=== PATIENT | female | born 1935 | race Caucasian/White ===

== ENCOUNTER 2016-06-02 11:22 | Inpatient (IN) | payer MEDICARE, BC ==
[~2016-06-02] VITALS: Ht 160 cm; Wt 60.0 kg
--- NOTE | ~2016-06-02 | HEMODYNAMI ---
PATIENT:DENAE HALLMAN MEDICAL RECORD: [id number] : 35 [facility] [id number] ADMISSION DATE: 06/02/16 Generatedon:06/03/20169:52 Patient name: DENAE HALLMAN Patient #: [id number] : 1935 Date of study: 06/03/2016 Page: Of Hemodynamic Procedure Report Patient Data Patient Demographics Procedure consent was obtained First Name: DENAE Gender: Female Last Name: LEXX : 1935 Patient #: [id number] Age: 80 year(s) Race: SSN: [id number] Additional ID: [id number] Contact details Address: [address] [place] [address] State: [place] City: [place] Zip code: [address] Past Medical History Allergies: No known allergies Admission Admission Data Admission Date: 06/02/2016 Admission Time: 12:38 Arrival Date: 06/02/2016 Arrival Time: 12:38 Admit Source: Other Insurance Payor: Medicare Room #: D.2121 Height (in.): 62 BSA: 1.6 (m2) Height (cm.): 157.48 BMI: 24.19 (kg/m2) Weight (lbs.): 132.28 Weight (kg.): 60 Lab Results Lab Result Date: 06/03/2016 Lab Result Time: 0:00 Biochemistry Name Units Result Min Max BUN mg/dl 21 --(----)-* 7 18 Creatinine mg/dl 0.9 --(-*--)-- 0.6 1.3 CBC Name Units Result Min Max Hemoglobin g/dl 11.2 *-(----)-- 13.5 17.5 Procedure Procedure Types Cath Procedure Diagnostic Procedure [facility] w/Coronaries PCI Procedure Coronary Stent Initial Procedure Description Procedure Date Procedure Date: 06/03/2016 Procedure Start Time: 9:33 Procedure End Time: 9:47 Procedure Staff Name Function Rodrick Moran MD Performing Physician Monica Amato RT Scrub Ger Allen RT Supervisory Examiner Vania Bobby RT Monitor Dayana Knight RN Nurse Indication Angina Procedure Data Cath Procedure Fluoroscopy Diagnostic fluoroscopy Total fluoroscopy Time: 4.2 time: 4.2 min min Diagnostic fluoroscopy Total fluoroscopy dose: 519 dose: 519 mGy mGy Contrast Material Contrast Material Type Amount (ml) Isovue 370 83 Entry Location Entry Primary Successful Side Size Upsize Upsize Entry Closure Rhodes ccessful Closure Location (Fr) 1 (Fr) 2 (Fr) Remarks Device Remarks Radial Right 6 Fr Mechanical artery Short Compression Estimated blood loss: 5 ml Diagnostic catheters Device Type Used For End Catheter Placement Terumo Optitorque 5Fr Multi-vessel [place] 4.5 catheter Angiography Procedure Complications No complications Procedure Medications Medication Administration Route Dosage Oxygen NC 2 l/min Heparin Flush Bag added to field 2 bags (1000units/500ml NS) Lidocaine 2% added to field 20 Radial Cocktail added to field 1 syringe (Verapomil 2mg/Nitro 400mcg/Heparin 1500units) Versed I.V. 1 mg Fentanyl I.V. 50 mcg Versed I.V. 1 mg Fentanyl I.V. 50 mcg Radial Cocktail I.A. 1 syringe (Verapomil 2mg/Nitro 400mcg/Heparin 1500units) Heparin Bolus I.V. 4000 units Versed I.V. 0.5 mg Versed I.V. 0.5 mg Plavix P.O. 75 mg Hemodynamics Rest BSA: 1.6 (m2) HGB: 11.2 (g/dl) O2 Consumption: Estimated: 151.08 (ml/min) O2 Con sumption indexed: Estimated:94.42 (ml/min/m) Heart Rate: 82 (bpm) Pressure Samples Time Site Value (mmHg) Purpose Heart Use Rate(bpm) 9:36 LV 46/14,11 Snapshot 113 Snapshots Pre Cath Intra NCS Post Cath Vital Signs Time Heart Resp SPO2 NIBP (mmHg) Rhythm Pain Sedation Rate (ipm) (%) Status Level (bpm) 9:00:22 81 16 98 161/74(122) NSR 0 (11) 10(A) , No pain 9:04:52 82 13 99 169/72(117) NSR 0 (11) 10(A) , No pain 9:09:16 86 17 97 161/75(118) NSR 0 (11) 10(A) , No pain 9:13:41 84 15 96 143/67(108) NSR 0 (11) 10(A) , No pain 9:17:57 83 16 97 151/68(117) NSR 0 (11) 10(A) , No pain 9:22:27 80 18 96 131/70(75) NSR 0 (11) 10(A) , No pain 9:26:43 82 15 95 131/59(89) NSR 0 (11) 10(A) , No pain 9:30:59 83 16 95 130/57(92) NSR 0 (11) 10(A) , No pain 9:35:11 81 15 95 115/68(92) NSR 0 (11) 10(A) , No pain 9:39:17 88 14 95 128/67(97) NSR 0 (11) 9(A) , No pain 9:43:27 85 14 97 147/72(111) NSR 0 (11) 9(A) , No pain 9:47:31 84 14 99 142/65(106) NSR 0 (11) 10(A) , No pain Medications Time Medication Route Dose Verified Delivered Reason Notes Effectiveness by by 9:16:04 Oxygen NC 2 l/min Rodrick Dayana Per physician Luisa Knight RN 9:16:12 Heparin Flush added 2 bags Rodrick Mensah used for Bag to Luisa Moran MD procedure (1000units/500ml field NS) 9:16:22 Lidocaine 2% added 20ml Rodrick Mensah used for to vial Luisa Moran MD procedure field 9:16:33 Radial Cocktail added 1 Rodrick Rodrick used for (Verapomil to syringe Luisa Moran MD procedure 2mg/Nitro field 400mcg/Heparin 1500units) 9:33:26 Versed I.V. 1 mg Rodrick Dayana for sedation Luisa Knight RN 9:33:32 Fentanyl I.V. 50 mcg Rodrick Dayana for sedation Luisa Knight RN 9:35:20 Versed I.V. 1 mg Rodrick Dayana for sedation Luisa Knight RN 9:35:23 Fentanyl I.V. 50 mcg Rodrick Dayana for sedation Luisa Knight RN 9:35:36 Radial Cocktail I.A. 1 Rodrick Mensah for (Verapomil syringe Luisa Moran MD vasodilation 2mg/Nitro 400mcg/Heparin 1500units) 9:37:49 Versed I.V. 0.5 mg Rodrick Dayana for sedation Luisa Knight RN 9:39:32 Heparin Bolus I.V. 4000 Rodrick Dayana for dose units Luisa Knight RN anticoagulation verified wtih dr moran 9:41:35 Versed I.V. 0.5 mg Rodrick Dayana for sedation Luisa Knight RN 9:49:45 Plavix P.O. 75 mg Rodrick Dayana for Luisa Knight RN antiplatelet therapy Procedure Log Time Note 8:30:54 Ger Allen RT(R) sent for patient. Start room use. 8:46:39 Informed consent obtained and on chart 8:47:19 Admit Source: Other 8:47:27 Arrival Date: 06/02/2016 12:38:00 PM 8:47:36 Insurance Payor : Medicare 8:48:12 Lab Result : Hemoglobin 11.2 g/dl 8:48:12 Lab Result : BUN 21 mg/dl 8:48:12 Lab Result : Creatinine 0.9 mg/dl 8:48:22 Diagnostic Cath Status : Elective 8:49:31 Indication : Angina 8:50:06 Time tracking: Regular hours 8:50:12 Plan of Care:Hemodynamics will remain stable., Cardiac rhythm will remain stable., Comfort level will be maintained., Respiratory function will remain adequate., Patient/ family verbilizes understanding of procedure., Procedure tolerated without complication., Recovers from procedure without complications.. 8:51:14 Warm blankets applied, and lizeth hugger turned on for patient comfort. 8:51:14 Correct patient and procedure confirmed by team. 8:51:15 ECG and BP/O2 sat monitors applied to patient. 8:51:15 Vital chart was started 8:53:35 Patient Weight : 60 lbs 8:54:28 H&P Date Dictated: 06/02/2016 Within 30 days and on chart., H&P Addendum completed by physician on day of procedure. (MUST COMPLETE FOR ALL OUTPATIENTS). 8:54:29 Pre-procedure instructions explained to patient. 8:54:34 Family in waiting room. 8:54:36 Patient NPO since Midnight. 8:54:43 Patient allergic to No known allergies 8:54:49 Is the patient allergic to Iodine/contrast media? No. 8:56:36 Is patient on blood thinner?Yes 8:56:40 ACC The patient was administered the following blood thiners within the last 24 hours: ACCPlavix 8:56:42 Patient diabetic? No. 8:57:01 Snore? Unknown 8:57:04 Sleep apnea? No 8:57:16 Airway obstruction? Yes asthma 8:57:25 Dentures? Yes in tight 8:57:32 Patient pain scale 0/10 ?. 8:57:40 IV patent on arrival in right forearm with 0.9% NaCl at [facility]. 8:57:47 Lab results completed and on chart. 8:57:51 Right Radial & Right Groin area was prepped with chlora-prep and draped in sterile fashion 8:57:53 Alarms reviewed by R. N. 8:57:53 Sharps counted by scrub and verified by R.N. 8:58:04 Baseline sample Acquired. 8:58:15 Full Disclosure recording started 9:07:57 H&P Date Dictated: 06/03/2016 New H&P dictated by physician.. 9:13:10 Patient Height : 157.48 inches 9:16:04 Oxygen 2 l/min NC was given by Dayana Knight RN; Per physician; 9:16:12 Heparin Flush Bag (1000units/500ml NS) 2 bags added to field was given by Rodrick Moran MD; used for procedure; 9:16:22 Lidocaine 2% 20ml vial added to field was given by Rodrick Moran MD; used for procedure; 9:16:33 Radial Cocktail (Verapomil 2mg/Nitro 400mcg/Heparin 1500units) 1 syringe added to field was given by Rodrick Moran MD; used for procedure; 9:21:48 Zero performed for pressure channel P1 9:21:53 Zero performed for pressure channel P1 9:21:58 Zero performed for pressure channel P1 9:32:10 Physician arrived 9:32:11 --------ALL STOP TIME OUT------ 9:32:11 Final Timeout: patient, procedure, and site verified with staff and physician. All members of the team are in agreement. 9:32:20 Right Radial & Right Groin site verified by team. 9:32:27 Physical assessment completed. ASA score P 2 - A patient with mild systemic disease as per Rodrick Moran MD. 9:32:31 Sedation plan: IV Moderate Sedation Versed, Fentanyl 9:32:39 Use device set Radial Dx 9:32:40 Acist Syringe opened to sterile field. 9:32:41 Cardinal Cath Pack opened to sterile field. 9:32:42 Bag Decanter opened to sterile field. 9:32:42 Terumo 6Fr Slender Glidesheath opened to sterile field. 9:32:43 St Erasmo 260cm J .035 wire opened to sterile field. 9:32:43 Acist Hand Control opened to sterile field. 9:32:44 Acist Manifold opened to sterile field. 9:32:45 Tegaderm 4 x 4 opened to sterile field. 9:32:50 Procedure started. 9:33:26 Versed 1 mg I.V. was given by Dayana Knight RN; for sedation; 9:33:32 Fentanyl 50 mcg I.V. was given by Dayana Knight RN; for sedation; 9:33:55 Local anesthetic to right radial artery with Lidocaine 2% by Rodrick Moran MD.INITIAL ACCESS ONLY 9:34:05 A 6 Fr Short sheath was inserted into the Right Radial artery 9:35:20 Versed 1 mg I.V. was given by Dayana Knight RN; for sedation; 9:35:23 Fentanyl 50 mcg I.V. was given by Dayana Knight RN; for sedation; 9:35:23 A TerAppLovin Optitorque 5Fr Milford 4.5 catheter was advanced over the wire and used for Multi-vessel Angiography. 9:35:36 Radial Cocktail (Verapomil 2mg/Nitro 400mcg/Heparin 1500units) 1 syringe I.A. was given by Rodrick Moran MD; for vasodilation; 9:36:13 LV hemodynamics recorded. 9:36:14 LV gram done using DUNN 9:36:26 EF : 60 % 9:36:30 LCA angiography performed. 9:36:33 Injector settings: Ml/sec: 3, Volume: 6, 9:37:21 RCA angiography performed. 9:37:28 Injector settings: Ml/sec: 3, Volume: 6, 9:37:49 Versed 0.5 mg I.V. was given by Dayana Knight RN; for sedation; 9:37:49 Catheter removed. 9:38:09 Proceeding to intervention. 9:39:32 Heparin Bolus 4000 units I.V. was given by Dayana Knight RN; for anticoagulation; dose verified wtih dr moran 9:39:45 Cordis 6FR XBLAD 3.5 guide catheter opened to sterile field. 9:39:45 Parker Whisper J 300cm 0.014 guide wire opened to sterile field. 9:39:46 [employer] BasixCompak Inflation Kit opened to sterile field. 9:40:34 6 Fr xblad 3.5 guide catheter was inserted over the wire 9:41:35 Versed 0.5 mg I.V. was given by Dayana Knight RN; for sedation; 9:41:49 whisper wire advanced. 9:41:59 Wire advanced across lesion. 9:42:18 Inflation number: 1 A [employer] [place] 2.5 X 20 balloon was prepped and advanced across the Mid CX, then inflated to 11 YAQUELIN for 0:10 (min:sec). 9:42:43 Balloon removed over the wire. 9:44:44 Inflation Number: 2 A Medtronic Resolute 2.5 X 26 stent was prepped and advanced across the Mid CX. The stent was deployed at 9 YAQUELIN for 0:10 (min:sec). 9:45:11 Stent catheter was removed intact over wire. 9:45:38 Wire removed. 9:45:39 Guide catheter removed. 9:46:00 Terumo TR Band Standard opened to sterile field. 9:46:16 Sheath removed intact; hemostasis achieved with Mechanical Compression to the Right Radial artery. 9:46:18 Procedure ended.(Physican Out) 9:46:43 Fluoroscopy time 04.20 minutes. 9:46:48 Flurop Dose total: 519 9:46:48 Fluoroscopy dose: 519 mGy 9:47:04 Contrast amount:Isovue 370 83ml. 9:47:06 Sharps counted by scrub and verified by R.N. 9:47:12 TR band inflated with 10cc of air. 9:47:18 Post right radial artery:stable 9:47:20 Post Procedure Pulses reassessed and unchanged 9:47:22 Post procedure rhythm: unchanged. 9:47:25 Estimated blood loss: 5 ml 9:47:26 Post procedure instruction explained to patient.Patient verbalizes understanding. 9:47:27 Patient needs reinforcement of post procedure teaching. 9:47:35 Procedure type changed to Cath procedure, Diagnostic procedure, LHC, C w/Coronaries, PCI procedure, Coronary Stent Initial 9:47:37 Procedure and supply charges have been captured, reviewed, submitted and are correct. 9:47:41 Procedure Complication : No complications 9:47:44 Vital chart was stopped 9:47:44 See physician's report for complete and final results. 9:47:55 Report given to [facility]. 9:47:57 Patient transfered to [facility] with Stretcher. 9:47:59 Procedure ended. 9:47:59 Full Disclosure recording stopped 9:48:11 ACC-PCI Only Patient was given prescriptions, or instructed by Rodrick Moran MD to start/continue the following medications upon discharge: Plavix 9:48:12 End room use (Document Last) 9:49:45 Plavix 75 mg P.O. was given by Dayana Knight RN; for antiplatelet therapy; Intervention Summary Intervention Notes Time ActionType Lesion and Equipment Action# Pressure Duration Attributes Used 9:42:18 Inflate Mid CX [employer] [place] 1 11 00:10 balloon Sci [place] 2.5 X 20 balloon 9:44:44 Place stent Mid CX Medtronic 2 9 00:10 Resolute 2.5 X 26 stent Device Usage Item Name Manufacture Quantity Catalog Number Hospital Part Current [facility] Lot# / Charge Number Stock Stock Serial# Code Acist Acist 1 19060 927579 962192 955489 20 Syringe Medical [employer] Inc Cardinal Cardinal 1 [id number] 61394 899419 5 Cath Pack Health Bag Microtek 1 2001S 637124 17070 373925 5 Decmig33 Medical Inc. Terumo 6Fr Terumo 1 [id number] 544112 544227 315391 [address] Erasmo St Erasmo 1 294828 908309 826651 960394 30 260cm J .035 wire Acist Hand Acist 1 06903 595548 392692 596576 5 Control Medical Systems Inc Acist Acist 1 23311 030312 256785 887621 5 Manifold Medical Systems Inc Tegaderm 4 3M 1 [id number] 577683 242946 636742 5 x 4 Terumo Terumo 1 40-1232 677492 078246 750553 5 Optitorque 5Fr Mil[place] 4.5 catheter Cordis 6FR Cardinal 1 [id number] 589506 768759 579933 10 XBLAD 3.5 Health guide catheter Parker Parker 1 [id number] 510078 643134 238645 5 Whisper J Vascular 300cm 0.014 guide wire Merit Merit 1 [id number] 057343 740933 338192 15 BasixLocally Medical Inflation Kit [place] Sci [place] 1 [id number] 150274 762848 275310 1 [id number] [employer] 2.5 X 20 balloon Medtronic Medtronic 1 [id number] 022531 433490 3 [id number] Resolute 2.5 X 26 stent Terumo TR Terumo 1 [id number] 233669 347426 711758 40 Band Standard Signature Audit Todd Stage Time Signature Unsigned Intra-Procedure 06/03/2016 Vania Bobby 9:52:32 AM RT(R) Signatures Monitor : Vania Bobby RT Signature : Date : Time : [place] [id number] [place] [place] [address]
--- NOTE | ~2016-06-02 | HEMODYNAMI ---
PATIENT:DENAE HALLMAN MEDICAL RECORD: [id number] : 35 [id number] ADMISSION DATE: 06/03/16 Generatedon:06/04/201610:17 Patient name: DENAE HALLMAN Patient #: [id number] : 1935 Date of study: 06/04/2016 Page: Of Hemodynamic Procedure Report Patient Data Patient Demographics Procedure consent was obtained First Name: DENAE Gender: Female Last Name: LEXX : 1935 Patient #: [id number] Age: 80 year(s) Race: SSN: [id number] Additional ID: [id number] Contact details [address]: [address] [place] [address] State: [place] City: [place] Zip code: [address] Past Medical History Allergies: No known allergies Admission Admission Data Admission Date: 06/03/2016 Admission Time: 15:10 Arrival Date: 06/02/2016 Arrival Time: 12:38 Admit Source: Other Insurance Payor: Medicare Room #: D.2121 Height (in.): 62 BSA: 1.6 (m2) Height (cm.): 157.48 BMI: 24.19 (kg/m2) Weight (lbs.): 132.28 Weight (kg.): 60 Lab Results Lab Result Date: 06/03/2016 Lab Result Time: 0:00 Biochemistry Name Units Result Min Max BUN mg/dl 21 --(----)-* 7 18 Creatinine mg/dl 0.9 --(-*--)-- 0.6 1.3 CBC Name Units Result Min Max Hemoglobin g/dl 11.2 *-(----)-- 13.5 17.5 Procedure Procedure Types Cath Procedure PCI Procedure Coronary Stent Initial Procedure Description Procedure Date Procedure Date: 06/04/2016 Procedure Start Time: 10:07 Procedure End Time: 10:15 Procedure Staff Name Function Rodrick Moran MD Performing Physician Dominic Larose RT Scrub Abram Scott RN Nurse Ger Allen RT [employer] [employer] [facility] And Edger Yung Sung RT Monitor Procedure Data Cath Procedure Fluoroscopy Diagnostic fluoroscopy Total fluoroscopy Time: 2.9 time: 2.9 min min Diagnostic fluoroscopy Total fluoroscopy dose: 133 dose: 133 mGy mGy Contrast Material Contrast Material Type Amount (ml) Isovue 300 99 Entry Location Entry Primary Successful Side Size Upsize Upsize Entry Closure Succes sful Closure Location (Fr) 1 (Fr) 2 (Fr) Remarks Device Remarks Femoral Right 6 Fr Vascade artery Short Closure System Procedure Complications No complications Procedure Medications Medication Administration Route Dosage Oxygen NC 2 l/min Lidocaine 2% added to field 20 Heparin Flush Bag added to field 2 bags (1000units/500ml NS) 0.9% NaCl I.V. 100 ml/hr Versed I.V. 1 mg Fentanyl I.V. 50 mcg Heparin Bolus I.V. 4000 units Hemodynamics Rest BSA: 1.6 (m2) HGB: 11.2 (g/dl) O2 Consumption: Estimated: 144.53 (ml/min) O2 Con sumption indexed: Estimated:90.33 (ml/min/m) Heart Rate: 71 (bpm) Snapshots Pre Cath Intra NCS Post Cath Vital Signs Time Heart Resp SPO2 etCO2 MF5ucdz NIBP (mmHg) Rhythm Pain Sedation Rate (ipm) (%) (mmHg) (mmHg) Status Level (bpm) 9:58:17 69 15 96 0 0 146/74(130) NSR 0 (11) 10(A) , No pain 10:02:35 68 15 97 0 0 155/80(130) NSR 0 (11) 10(A) , No pain 10:06:57 67 14 98 0 0 164/80(119) NSR 0 (11) 9(A) , No pain 10:11:24 69 14 98 0 0 143/68(111) NSR 0 (11) 9(A) , No pain 10:15:44 69 17 99 0 0 166/71(121) NSR 0 (11) 10(A) , No pain Medications Time Medication Route Dose Verified Delivered Reason Notes Effectiveness by by 10:00:32 Oxygen NC 2 Rodrick Valverde used for l/min Luisa Scott customer sales advisor 10:01:09 Lidocaine 2% added 20ml Rodrick Mensah for local to vial Luisa Moran MD anesthetic field 10:01:18 Heparin Flush added 2 Rodrick Mensah used for Bag to bags Luisa Moran MD procedure (1000units/500ml field NS) 10:01:27 0.9% NaCl I.V. 100 Rodrick Valverde Per physician ml/hr Luisa Scott RN 10:03:32 Versed I.V. 1 mg Rodrick Valverde for sedation Luisa Scott RN 10:03:38 Fentanyl I.V. 50 Rodrick Valverde for sedation mcg Luisa Scott RN 10:06:16 Heparin Bolus I.V. 4000 Rodrick Guerraie for verifi ed units Luisa Scott RN anticoagulation with dr moran Procedure Log Time Note 9:44:44 Patient Height : 62 inches 9:44:44 Patient Weight : 132.28 lbs 9:45:20 ACC Patient presents with Unstable Angina CCS Anginal Class 3--Marked limitation of physical activity, angina occurs with ordinary activity.. 9:45:22 Diagnostic Cath status Urgent 9:45:36 Ger [facility]NG(R) sent for patient. Start room use. 9:45:38 Time tracking: Regular hours 9:45:52 Plan of Care:Hemodynamics will remain stable., Cardiac rhythm will remain stable., Comfort level will be maintained., Respiratory function will remain adequate., Patient/ family verbilizes understanding of procedure., Procedure tolerated without complication., Recovers from procedure without complications.. 9:46:00 Patient received from PCU to CCL 1 Alert and oriented. Tansferred to table in Supine position. 9:46:01 Warm blankets applied, and lizeth hugger turned on for patient comfort. 9:46:01 Correct patient and procedure confirmed by team. 9:46:03 Signed procedure consent form obtained from patient. 9:46:04 ECG and BP/O2 sat monitors applied to patient. 9:57:13 Vital chart was started 9:57:14 Baseline sample Acquired. 9:57:17 Rhythm: sinus rhythm 9:57:17 Full Disclosure recording started 9:57:38 H&P Date Dictated: 06/02/2016 Within 30 days and on chart.. 9:57:40 Pre-procedure instructions explained to patient. 9:57:40 Pre-op teaching completed and patient verbalized understanding. 9:58:28 Family in waiting room. 9:58:35 Patient NPO since Midnight. 9:58:44 Patient allergic to No known allergies 9:58:46 Is the patient allergic to Iodine/contrast media? No. 9:58:49 Is patient on blood thinner?Yes 9:58:51 ACC The patient was administered the following blood thiners within the last 24 hours: ACCPlavix 9:59:36 Patient diabetic? No. 9:59:38 ----Pre-sedation anethsthesia assessment.---- 9:59:40 Previous problem with sedation/anesthesia? No ? 9:59:42 Snore? Unknown 9:59:44 Sleep apnea? No 9:59:46 Deviated septum? No 9:59:47 Opens mouth fully? Yes 9:59:49 Sticks out tongue? Yes 9:59:56 Airway obstruction? Yes ASTHMA 10:00:01 Dentures? Yes IN TIGHT 10:00:05 Pre procedure: right dorsailis pedis pulse 1+ Palpable, but thready & weak; easily obliterated 10:00:09 Patient pain scale 0/10 ?. 10:00:14 IV patent on arrival in left antecubital with 0.9% NaCl at 10ml/hr. 10:00:32 Oxygen 2 l/min NC was given by Abram Scott RN; used for procedure; 10:01:08 Lab results completed and on chart. 10:01:09 Lidocaine 2% 20ml vial added to field was given by Rodrick Moran MD; for local anesthetic; 10:01:11 Right groin area was prepped with chlora-prep and draped in sterile fashion 10:01:12 Alarms reviewed by R. N. 10:01:13 Sharps counted by scrub and verified by R.N. 10:01:15 --------ALL STOP TIME OUT------ 10:01:16 Final Timeout: patient, procedure, and site verified with staff and physician. All members of the team are in agreement. 10:01:17 Right groin site verified by team. 10:01:18 Heparin Flush Bag (1000units/500ml NS) 2 bags added to field was given by Rodrick Moran MD; used for procedure; 10:01:20 Physical assessment completed. ASA score P 2 - A patient with mild systemic disease as per Rodrick Moran MD. 10:01:25 Sedation plan: IV Moderate Sedation Versed, Fentanyl 10::27 0.9% NaCl 100 ml/hr I.V. was given by Abram Scott RN; Per physician; 10:03:32 Versed 1 mg I.V. was given by Abram Scott RN; for sedation; 10:03:38 Fentanyl 50 mcg I.V. was given by Abram Scott RN; for sedation; 10:05:38 Use device set Femoral PCI 10:05:39 Acist Syringe opened to sterile field. 10:05:40 Acist Hand Control opened to sterile field. 10:05:40 Bag Decanter opened to sterile field. 10:05:40 Cardinal Cath Pack opened to sterile field. 10:05:41 Terumo 6Fr Adams Sheath opened to sterile field. 10:05:41 St Erasmo 260cm J .035 wire opened to sterile field. 10:05:42 OpGen BasixCompak Inflation Kit opened to sterile field. 10:05:43 Acist Manifold opened to sterile field. 10:05:54 Parker Whisper J 300cm 0.014 guide wire opened to sterile field. 10:05:55 Cordis 6FR XBLAD 4.0 guide catheter opened to sterile field. 10:05:59 Procedure started. 10:06:16 Heparin Bolus 4000 units I.V. was given by Abram Scott RN; for anticoagulation; verified with dr moran 10:07:16 Local anesthetic to right femoral artery with Lidocaine 2% by Rodrick Moran MD.INITIAL ACCESS ONLY 10:07:25 A 6 Fr Short sheath was inserted into the Right Femoral artery 10:08:27 ACC Pre-intervention ANGELA Flow is 3. 10:08:36 6 Fr XBLAD 3.5 guide catheter was inserted over the wire 10:08:40 WHISPER wire advanced. 10:09:14 Inflation number: 1 A [place] Sci Callahan 3.0 X 9 balloon was prepped and advanced across the Prox LAD, then inflated to 9 YAQUELIN for 0:10 (min:sec). 10::27 Inflation number: 2 The [place] Sci Callahan 3.0 X 9 balloon was reinflated across the Prox LAD, to 7 YAQUELIN for 0:11 (min:sec). 10:09:41 Balloon removed over the wire. 10:11:43 Vascade 6/7 Fr Closure Device opened to sterile field. 10:11:56 Inflation Number: 3 A Promus Premier OTW 3.0 x 12 stent was prepped and advanced across the Prox LAD. The stent was deployed at 17 YAQUELIN for 0:13 (min:sec). 10:11:59 Stent catheter was removed intact over wire. 10:12:00 Wire removed. 10:12:00 Guide catheter removed. 10:12:09 Sheath removed intact; hemostasis achieved with Vascade Closure System to the Right Femoral artery. 10:12:11 Procedure ended.(Physican Out) 10:13:19 Fluoroscopy time 02.90 minutes. 10:13:24 Fluoroscopy dose: 133 mGy 10:13:24 Flurop Dose total: 133 10:13:36 Contrast amount:Isovue 300 99ml. 10:13:37 Sharps counted by scrub and verified by R.N. 10:13:45 Insertion/operative site no bleeding no hematoma. 10:13:48 Post-op/insertion site Right Femoral artery dressed using a 4 x 4 and Tegaderm. 10:13:54 Post right femoral artery:stable 10:13:55 Post Procedure Pulses reassessed and unchanged 10:14:06 Post procedure: right dorsailis pedis pulse 1+ Palpable, but thready & weak; easily obliterated. 10:14:29 Post procedure rhythm: sinus rhythm 10:14:30 Post procedure instruction explained to patient.Patient verbalizes understanding. 10:14:52 Patient needs reinforcement of post procedure teaching. 10:14:55 Procedure and supply charges have been captured, reviewed, submitted and are correct. 10:14:59 Procedure Complication : No complications 10:15:02 Vital chart was stopped 10:15:03 See physician's report for complete and final results. 10:15:04 Report given to PCU. 10:15:07 Patient transfered to PCU with Bed. 10:15:09 Procedure ended. 10:15:09 Full Disclosure recording stopped 10:15:13 End room use (Document Last) Intervention Summary Intervention Notes Time ActionType Lesion and Equipment Action# Pressure Duration Attributes Used 10:09:14 Inflate Prox LAD [place] 1 9 00:10 balloon Sci Callahan 3.0 X 9 balloon 10:09:27 Reinflate Prox LAD [place] 2 7 00:11 balloon Sci Callahan 3.0 X 9 balloon 10:11:56 Place stent Prox LAD Promus 3 17 00:13 Premier OTW 3.0 x 12 stent Device Usage Item Name Manufacture Quantity Catalog Number Hospital Part Current Mini mal Lot# / Charge Number Stock Stock Serial# Code Acist Acist 1 40179 [id number] 340718 [id number] 20 Syringe Medical Systems Inc Acist Hand Acist 1 39722 701345 624270 800964 5 Control Medical Systems Inc Bag Microtek 1 2002S 969918 86826 900785 5 Decanter Medical Inc. Cardinal Cardinal 1 [id number] 054189 36019 079745 5 Cath Pack Health Terumo 6Fr Terumo 1 [id number] 159527 836988 321927 [address] Erasmo St Erasmo 1 221894 094339 300648 418371 30 260cm J .035 wire Merit Merit 1 [id number] 342422 822358 167817 15 BasixCompak Medical Inflation Kit Acist Acist 1 90271 852465 655874 127267 5 Manifold Medical Systems Inc Parker Parker 1 [id number] 895364 613019 178168 5 Whisper J Vascular 300cm 0.014 guide wire Cordis 6FR Cardinal 1 [id number] 367808 721432 998521 3 XBLAD 4.0 Health guide catheter [place] Sci [place] 1 [id number] 974107 506322 970864 1 [id number] Callahan Scientific 3.0 X 9 balloon Vascade 6/7 Cardiva 1 [id number] 658012 289901 030508 5 Fr Closure Medical, Device Inc. Promus [place] 1 [id number] 589936 163041 5 [id number] Premier OTW Scientific 3.0 x 12 stent Signature Audit Aurora Stage Time Signature Unsigned Intra-Procedure 06/04/2016 Yung Sung 10:17:31 AM RT(R) Signatures Monitor : Yung Sung RT Signature : Date : Time : [facility] [address] [place] [address]
[2016-06-02 10:59] LABS: BASOPHILS 0.3 % (0.0-2.0); EOSINOPHILS 1.4 % (0-7); HEMATOCRIT 34.4 % (36.0-48.0); HEMOGLOBIN 11.2 g/dL (12-16); LYMPHOCYTES 30.8 % (15-50); MCH 31.1 pg (26.0-34.0); MCHC 32.6 g/dL (31.0-37.0); MCV 95.6 fL (80.0-100.0); MEAN PLATELET VOLUME 9.6 fL (7.4-10.4); MONOCYTES 6.4 % (2-11); NEUTROPHILS 61.1 % (40-80); PLATELET COUNT 242 10x3/uL (130-400); RDW 15.9 % (11.5-14.5); WBC 6.3 10x3/uL (4.8-10.8)
[2016-06-02 11:31] LABS: ALBUMIN 3.2 g/dL (3.4-5.0); ALKALINE PHOSPHATASE 63 U/L (46-116); ALT (SGPT) 15 U/L (10-68); BILIRUBIN - TOTAL 0.22 mg/dL (0.2-1.3); CALC OSMOLALITY 282 mosm/kg (275-300); CALCIUM 8.9 mg/dL (8.5-10.1); CARBON DIOXIDE 26.4 mmol/L (21.0-32.0); CHLORIDE - SERUM 104 mmol/L (98-107); CREATININE - SERUM 0.8 mg/dL (0.6-1.3); GLUCOSE 104 mg/dL (74-106); POTASSIUM - SERUM 3.9 mmol/L (3.5-5.1); PROTEIN - SERUM 6.8 g/dL (6.4-8.2); SODIUM 140 mmol/L (136-145); UREA NITROGEN 24 mg/dL (7-18); eGFR NON AFRICAN AMERICAN 73 mL/min (90-120)
[2016-06-02 11:42] LABS: CHOL - HDL RATIO 2.7 ratio (2.3-4.1); CHOLESTEROL, TOTAL 216 mg/dL (0-200); CKMB 1.1 U/L (0.0-3.6); CREATINE KINASE 42 UL (21-215); HDL CHOLESTEROL 81 mg/dL (32-96); LDL CHOLESTEROL 102 mg/dL (0-100); LDL-HDL RATIO 1.3 ratio (1.5-3.5); TRIGLYCERIDE 165 mg/dL (30-200); TROPONIN-I < 0.017 ng/mL (0.000-0.060)
--- NOTE | 2016-06-02 13:30 | NUR ---
RECEIVED PT FROM ER VIA W/C IN STABLE CONDITION AAOX4 RESP UNLABORED ADMITTED TO DR OSBORNE DX CHEST PAIN PT DENIES ANY DISCOMFORT AT THIS TIME
[2016-06-02 13:31] VITALS: BP 190/75; Ht 160 cm; Wt 60.0 kg
[2016-06-02] MEDS ORDERED: GABAPENTIN100 MG PO (14:03)
[2016-06-02] MEDS ORDERED: NEXIUM40 MG (14:04)
[2016-06-02] MEDS ORDERED: ROPINIROLE HCL2 MG PO (14:04)
[2016-06-02] MEDS ORDERED: PLAQUENIL200 MG PO (14:05)
[2016-06-02] MEDS ORDERED: PREMARIN0.625 MG PO (14:05)
[2016-06-02] MEDS ORDERED: AMBIEN10 MG (14:06)
[2016-06-02] MEDS ORDERED: WELLBUTRIN SR150 MG PO (14:08)
[2016-06-02] MEDS ORDERED: PROAIR HFA8.5 GM INH (14:09)
[2016-06-02 16:00] VITALS: BP 143/72
--- NOTE | 2016-06-02 19:43 | NUR ---
RESUMED CARE OF PT, LYING IN BED RESPIRATIONS EVEN AND UNLABORED ON 2LPM VIA NC. 65 SR ON TELEMETRY. RIGHT AC SALINE LOCKED. DR. OSBORNE PAGED FOR PAIN MEDICATION. SEE NEW ORDERS. CALL LIGHT IN REACH. SEE NURSE ASSESSMENT. WILL CONTINUE TO MONITOR.
[2016-06-02 20:00] VITALS: BP 131/60
[2016-06-03] VITALS (13 sets, daily range): BP systolic 112–156; BP diastolic 53–78
[2016-06-03 05:53] LABS: ANION GAP 10.4 mmol/L (8-16); CALCIUM 8.7 mg/dL (8.5-10.1); CARBON DIOXIDE 29.3 mmol/L (21.0-32.0); CREATININE - SERUM 0.9 mg/dL (0.6-1.3); POTASSIUM - SERUM 3.7 mmol/L (3.5-5.1)
--- NOTE | 2016-06-03 07:30 | NUR ---
RECEIVED PT IN BED EYES CLOSED RESP UNLABORED NAD NOTED
--- NOTE | 2016-06-03 08:40 | NUR ---
PREOP MEDS GIVEN PT TO INFORMATION ASSISTANT VIA BED IN STABLE CONDITION
--- NOTE | 2016-06-03 09:50 | NUR ---
RETURNED FROM MANAGER LINE IN STABLE CONDITION VSS TR BAND INTACT TO RT WRIST SLIGHT BRUISING NOTED TO FOREARM AND SL EDEMA NOTED TO RT HAND WILL CONTINUE TO MONITOR
[2016-06-03 10:02] LABS: BASOPHILS 0.3 % (0.0-2.0); EOSINOPHILS 3.3 % (0-7); HEMATOCRIT 33.1 % (36.0-48.0); HEMOGLOBIN 10.7 g/dL (12-16); IMMATURE GRANULOCYTES 0.3 % (0-5); LYMPHOCYTES 18.7 % (15-50); MCH 31.1 pg (26.0-34.0); MCHC 32.3 g/dL (31.0-37.0); MCV 96.2 fL (80.0-100.0); MONOCYTES 7.4 % (2-11); PLATELET COUNT 216 10x3/uL (130-400); RBC 3.44 10x6/uL (4.00-5.40); RDW 16.2 % (11.5-14.5)
[2016-06-03 10:19] LABS: WBC 3.6 10x3/uL (4.8-10.8)
--- NOTE | 2016-06-03 10:57 | NUR ---
RATIONALE FOR SCD'S EXPLAINED. REFUSED SCD'S DUE TO PROCEDURE
[2016-06-03] MEDS ORDERED: NEXIUM40 MG PO (11:07)
[2016-06-03] MEDS ORDERED: AMBIEN10 MG PO (11:08)
--- NOTE | 2016-06-03 14:16 | OP ---
PATIENT NAME: DENAE HALLMAN MEDICAL RECORD: [id number] :35 LOCATION:D.M2 D.2121 ADMISSION DATE:06/02/16 SURGEON: AMY OSBORNE MD DATE OF OPERATION: 06/03/2016 PROCEDURES: 1. PTCA stent, left circumflex. 2. Left heart catheterization. 3. Selective coronary angiography. 4. Left ventriculogram. INDICATION: Unstable angina and coronary artery disease. PROCEDURE IN DETAIL: After informed consent was obtained and after detailed explanation of risks, benefits as well as alternative therapies, the patient elected to proceed with angiogram and angioplasty. The right radial area was prepped and draped in normal sterile fashion. The right radial artery was cannulated via modified Seldinger technique with placement of 6-Yakut sheath. All catheters exchanged through this sheath. FINDINGS: Left ventriculogram was performed in the standard 30-degree DUNN view reveals good cardiac wall motion, ejection fraction is 60%. SELECTIVE CORONARY ANGIOGRAPHY: 1. Left main is with no significant angiographic disease. 2. Left anterior descending has a 90% stenosis at the ostium. 3. The left circumflex has two 95% stenosis in the mid vessel. 4. The right coronary has at least 70% in-stent restenosis in the mid vessel. PERCUTANEOUS TRANSLUMINAL CORONARY ANGIOPLASTY STENT OF THE LEFT CIRCUMFLEX: The stent used a 2.5 x 26 mm Resolute. Result was 0% residual stenosis. OVERALL IMPRESSION: Successful percutaneous transluminal coronary angioplasty stent of the left circumflex going from 95% initial stenosis to 0% residual. PLAN: Percutaneous transluminal coronary angioplasty stent of the left anterior descending in the a.m. and the right coronary artery next week in a staged fashion. TRANSINT:[id number] Voice Confirmation ID: [id number] DOCUMENT ID: [id number] AMY OSBORNE MD at 1416 CC: [id number] DICTATION DATE: 06/03/16 0951 SECTION GANG WORKER: 06/03/16 1111 [place] [address]
--- NOTE | 2016-06-03 14:16 | HP ---
PATIENT: DENAE HALLMAN MEDICAL RECORD: [id number] ACCOUNT: [id number] LOCATION:[address] : [birth year] ADMISSION DATE: 06/02/16 HISTORY AND PHYSICAL EXAMINATION ADMITTING DIAGNOSES: 1. Angina, unstable. 2. Coronary artery disease. 3. Previous cardiac stent. 4. Lupus. HISTORY OF PRESENT ILLNESS: Mrs. Hallman presents with 1-day of chest pain and chest discomfort compatible with angina with severe left arm pain. This is just like the pain she had 5 years ago, when she had to have PTCA, stent. Her EKG is with nonspecific ST-T abnormalities. She continues to have the pain despite morphine and nitro. PHYSICAL EXAMINATION: GENERAL APPEARANCE: Well-nourished, well-developed, appears stated age. Level of distress, comfortable. PSYCHIATRIC: Mental status, alert, normal affect. Orientation, oriented to time, place and person. EYES: Lids and conjunctiva, noninjected. No discharge, no pallor. ENT: Lips, teeth, gums, normal dentition. Oropharynx, no cyanosis, no pallor. NECK: Carotid arteries, bilateral normal upstroke, no bruits, no thrills. JUGULAR VEINS: No jugular venous pressure or distention. CERVICAL LYMPH NODES: Nontender, nonenlarged. THYROID: Not enlarged. Nontender. No nodules. LUNGS: Respiratory effort, unlabored. CHEST: Normal curvature. No thoracic deformity. No chest wall tenderness. Percussion, resonant. Auscultation, clear. No wheezes, no rales, no rhonchi. CARDIOVASCULAR: Precordial exam, nondisplaced. No heaves or pericardial thrills. Rate and rhythm, regular. Heart sounds, normal S1, normal S2. No S3, no gallop, no rub. Systolic murmur, not heard. Diastolic murmur, not heard. EXTREMITIES: No cyanosis, no edema. Peripheral pulses, full and equal in all extremities, except as noted. No bruits appreciated. ABDOMEN: Soft, nondistended. Normal aorta. No bruit. Nontender. No masses. Liver, nontender, no hepatomegaly. Spleen, nontender, no splenomegaly. MUSCULOSKELETAL: No joint tenderness. No joint swelling. No erythema. NEUROLOGICAL: Normal gait, normal strength, normal tone. SKIN: Warm and dry. REVIEW OF SYSTEMS: The patient reports easy bruising but reports no swollen glands. The patient reports no fever, no night sweats, no significant weight gain, no significant weight loss. No significant exercise tolerance. The patient reports no dry eyes, no irritation, no vision change. Patient reports no difficulty hearing and no ear pain. Patient reports no frequent nose bleeds or nose and sinus problems. Patient reports on arm pain on exertion. No shortness of breath while lying down. No history of heart murmur. Patient reports no cough, no wheezing or coughing up blood. Patient reports no abdominal pain, no vomiting. Normal appetite. No diarrhea and not vomiting blood. No nausea and no constipation. Patient reports no incontinence. No difficulty urinating. No hematuria. No increased frequency. Patient reports no muscle aches. No weakness, no arthralgias, no back pain. No swelling of the extremities. Patient reports no abnormal mole, no jaundice, no rashes. Reports HISTORY AND PHYSICAL [id number] DENAE HALLMAN no loss of consciousness. No weakness and no numbness. No seizures, dizziness, or headaches. The patient reports no depression, no sleep disturbance, feeling safe in a relationship and no alcohol abuse. Patient reports on fatigue. Reports no runny nose or sinus pressure. No itching, no hives, and no frequent sneezing. OVERALL IMPRESSION: Angina in an unstable progressive fashion. We will admit, load with Plavix, and proceed with coronary angiography in the a.m. Further care depends upon findings of the angiography. TRANSINT:[id number] Voice Confirmation ID: [id number] DOCUMENT ID: [id number] AMY OSBORNE MD at 1416 CC: [id number] DICTATION DATE: 06/02/16 1123 MANAGER TARGET: 06/02/16 1154 ADM IN [place] [id number] [place] [address]
[2016-06-04] VITALS: BP 129/51
--- NOTE | 2016-06-04 00:06 | NUR ---
PT ASSESSMENT COMPLETED NO DISTRESS OBSERVED CALL LIGHTI NR EACH SRX2 BED LOW AND LOCKED WILL MONITOR
[2016-06-04 08:00] VITALS: BP 128/60
--- NOTE | 2016-06-04 09:20 | NUR ---
TELEMETRY SR. IV RESTARTED TO LEFT FA WITH 22 GAUGE CATH X 1 STICK AND FLUSHED WITH NS. PRE-OPS GIVEN. WILL CONT. PLAN OF CARE.
--- NOTE | 2016-06-04 10:04 | NUR ---
LEAVING FOR FISH TECHNOLOGIST BY BED.
--- NOTE | 2016-06-04 10:39 | NUR ---
BACK FROM COMMODITY BUYER. VS WNL. RIGHT GROIN STABLE WITHOUT BLEEDING OR HEMATOMA NOTED. WILL MONITOR.
[2016-06-04] MEDS ORDERED: PLAVIX75 MG PO (11:00)
[2016-06-04] MEDS ORDERED: ASPIRIN81 MG PO (11:00)
--- NOTE | 2016-06-04 11:40 | NUR ---
Patient Name: DENAE HALLMAN Admission Status: ER Accout number: [id number] Admission Date: 06-03-2016 : 1935 Admission Diagnosis: Attending: TROY Current LOS: 1 Anticipated DC Date: 06-04-2016 Planned Disposition: Home Primary Insurance: MEDICARE A & B Discharge Planning Comments: * Is the patient Alert and Oriented? Yes 0 * How many steps to enter\exit or inside your home? 3 0 * PCP DR. NICHOLAS HAMMOND 0 * Pharmacy [id number] IN [place] OR [facility] MAIL ORDER 0 * Preadmission Environment Home with Family 0 * ADLs Partial Dependent 0 * Partial ADLs (Assistance needed) Medication Management 0 * Equipment None 0 * Other Equipment [facility] MEDICAL EQUIPMENT PROVIDER PREFERENCE 0 * List name and contact numbers for known caregivers / representatives who currently or will assist patient after discharge: HAILY BARROSO, DTR/YULY, 0 * Community resources currently utilized None 0 * Please name any agencies selected above. NONE 0 * Additional services required to return to the preadmission environment? No 0 * Can the patient safely return to the preadmission environment? Yes 0 * Has this patient been hospitalized within the prior 30 days at any hospital? No 0 CM MET WITH PT AND DAUGHTER IN ROOM TO DISCUSS DISCHARGE PLANNING AND NEEDS. DAUGHTER, HAILY, REPORTS SHE GAVE POA PAPERS TO THE NURSE TO PLACE ON CHART. PT REPORTS LIVING AT HOME INDEPENDENTLY WITH HER ADULT DAUGHTER. PT HAS NO MEDICAL EQUIPMENT AND WOULD LIKE ANY EQUIPMENT TO BE OBTAINED FROM [facility] IF NEEDED. PT HAS NO OUTSIDE SERVICES ASSISTING IN THE HOME. CM DISCUSSED AVAILABILITY OF HOME HEALTH, REHAB SERVICES AND MEDICAL EQUIPMENT. PT DENIES DISCHARGE NEEDS, REPORTS HER DAUGHTER WILL PICK HER UP FOR DISCHARGE HOME. IMPORTANT MESSAGE FROM MEDICARE PROVIDED AND EXPLAINED. FAMILY IS UNSURE IF PT WILL BE WELL ENOUGH TO DISCHARGE TODAY AND THEY ARE WAITING TO SPEAK TO DR. OSBORNE. PT PLANS TO DISCHARGE HOME WITH ASSISTANCE OF FAMILY. CM TO FOLLOW AND ASSIST IF NEEDED. Turner In: Leandro March
[2016-06-04 12:00] VITALS: BP 165/65
--- NOTE | 2016-06-04 14:45 | NUR ---
BED REST UP. GROIN STABLE.
--- NOTE | 2016-06-04 15:01 | NUR ---
IV AND TELEMETRY DCD. DC PLANS GIVEN. UNDERSTANDING VOICED. ESCORTED TO CAR BY W/C.
--- NOTE | 2016-06-07 11:12 | OP ---
PATIENT NAME: DENAE HALLMAN MEDICAL RECORD: [id number] :35 LOCATION:D.M2 D.2121 ADMISSION DATE:06/03/16 SURGEON: AMY OSBORNE MD DATE OF OPERATION: 06/04/2016 PROCEDURES: 1. PTCA, stent LAD. 2. Selective coronary angiography. INDICATION: Angina and coronary artery disease. PROCEDURE IN DETAIL: After informed consent was obtained and after detailed explanation of risks, benefits, as well as alternative therapies, the patient elected to proceed with angiogram and angioplasty. The right femoral area was prepped and draped in normal sterile fashion. Right femoral artery was cannulated via modified Seldinger technique with placement of 6-Greenlandic sheath. All catheters exchanged through this sheath. FINDINGS: The left anterior descending has a 95% stenosis at the ostium. This was addressed with a 3.0 x 12 mm Promus stent. Result was 0% residual stenosis. OVERALL IMPRESSION: Successful percutaneous transluminal coronary angioplasty stent of the left anterior descending going from 95% initial stenosis to 0% residual. TRANSINT:[id number] Voice Confirmation ID: [id number] DOCUMENT ID: [id number] AMY OSBORNE MD at 1112 CC: [id number] DICTATION DATE: 06/04/16 1018 TECHNICAL SPEC: 06/04/16 1035 DIS IN 06/04/[address] [address]
--- NOTE | 2016-06-07 11:12 | DS ---
PATIENT:DENAE HALLMAN :35 MEDICAL RECORD: [id number] DISCHARGE SUMMARY ADMISSION DATE: 06/03/16 DISCHARGE DATE: 06/04/16 DISCHARGE DIAGNOSES: 1. Unstable angina. 2. Coronary artery disease. 3. Percutaneous transluminal coronary angioplasty stent left anterior descending and left circumflex this admission. 4. Hypertension. 5. Hyperlipidemia. HOSPITAL COURSE: Mrs. Hallman presents with anginal symptomatology. She underwent successful PTCA stent of the left circumflex and LAD. She was discharged home with the addition of aspirin and Plavix to her medical regimen. She will follow up next week for PTCA stent of the right coronary artery. TRANSINT:[id number] Voice Confirmation ID: [id number] DOCUMENT ID: [id number] AMY OSBORNE MD at 1112 CC: [id number] DICTATION DATE: 06/04/16 1017 TALENT DEVELOPMENT SPECIALIST: 06/04/16 1027 DIS IN 06/04/16 [address] [place] [address]
== END 2016-06-04 15:01 | disposition home or self-care (01) | DRG 247 ==
LOC: OBSVTIME → D.CATH 11:22 → D.M2 11:22 → D.ER 12:38 → D.M2 12:38 → OBSVTIME 12:39 → D.CATH 06-03 14:22 → D.M2 06-03 14:22 → EDSTATUS 06-04 08:30 → D.M2 06-04 15:01 → D.CATH 06-04 15:01 → D.M2 06-04 15:01
PROVIDERS: Emergency Medicine; ADMIT Internal Medicine Interventional Cardiology
PROC: 4A023N7 Measurement of Cardiac Sampling and Pressure, Left Heart, Percutaneous Approach (ICD-10-PCS; 2016-06-03)
PROC: B2111ZZ Fluoroscopy of Multiple Coronary Arteries using Low Osmolar Contrast (ICD-10-PCS; 2016-06-03)
PROC: B2151ZZ Fluoroscopy of Left Heart using Low Osmolar Contrast (ICD-10-PCS; 2016-06-03)
PROC: 027034Z Dilation of Coronary Artery, One Artery with Drug-eluting Intraluminal Device, Percutaneous Approach (ICD-10-PCS; principal; 2016-06-03 08:30)
PROC: 027034Z Dilation of Coronary Artery, One Artery with Drug-eluting Intraluminal Device, Percutaneous Approach (ICD-10-PCS; 2016-06-04)
DX: I25.110 Atherosclerotic heart disease of native coronary artery with unstable angina pectoris (principal); T82.855A Stenosis of coronary artery stent, initial encounter; M32.9 Systemic lupus erythematosus, unspecified; I10 Essential (primary) hypertension; E78.5 Hyperlipidemia, unspecified; Y83.8 Other surgical procedures as the cause of abnormal reaction of the patient, or of later complication, without mention of misadventure at the time of the procedure

== ENCOUNTER 2016-06-11 07:41 | Outpatient (CLI) | payer MEDICARE, BC ==
[~2016-06-11] VITALS: Ht 160 cm; Wt 59.1 kg
--- NOTE | ~2016-06-11 | HEMODYNAMI ---
PATIENT:DENAE HALLMAN MEDICAL RECORD: [id number] : 35 LOCATION:[facility] ADMISSION DATE: 06/11/16 Generatedon:06/11/20169:31 Patient name: DENAE HALLMAN Patient #: [id number] : 1935 Date of study: 06/11/2016 Page: Of Hemodynamic Procedure Report Patient Data Patient Demographics Procedure consent was obtained First Name: DENAE Gender: Female Last Name: LEXX : 1935 Patient #: [id number] Age: 80 year(s) Race: SSN: [id number] Additional ID: [id number] Contact details [address]: [address] [place] [address] State: [place] City: [place] Zip code: [address] Past Medical History Allergies: No known allergies Admission Admission Data Admission Date: 06/11/2016 Admission Time: 9:30 Arrival Date: 06/11/2016 Arrival Time: 0:00 Admit Source: Other Insurance Payor: Medicare Height (in.): 63 BSA: 1.66 (m2) Height (cm.): 160.02 BMI: 24.8 (kg/m2) Weight (lbs.): 140 Weight (kg.): 63.5 Lab Results Lab Result Date: 06/11/2016 Lab Result Time: 0:00 Biochemistry Name Units Result Min Max BUN mg/dl 21 --(----)-* 7 18 Creatinine mg/dl 0.9 --(-*--)-- 0.6 1.3 CBC Name Units Result Min Max Hemoglobin g/dl 11.6 *-(----)-- 13.5 17.5 Procedure Procedure Types Cath Procedure Diagnostic Procedure FFR/IVUS Intra-Coronary IVUS Initial PCI Procedure Coronary Stent Initial Procedure Description Procedure Date Procedure Date: 06/11/2016 Procedure Start Time: 9:13 Procedure End Time: 9:25 Procedure Staff Name Function Rodrick Moran MD Performing Physician Yu Goddard RT Scrub Abram Scott RN Nurse Vania Bobby RT Monitor Procedure Data Cath Procedure Fluoroscopy Diagnostic fluoroscopy Total fluoroscopy Time: 3.6 time: 3.6 min min Diagnostic fluoroscopy Total fluoroscopy dose: 193 dose: 193 mGy mGy Contrast Material Contrast Material Type Amount (ml) Isovue 370 56 Entry Location Entry Primary Successful Side Size Upsize Upsize Entry Closure Succes sful Closure Location (Fr) 1 (Fr) 2 (Fr) Remarks Device Remarks Femoral Right 6 Fr Vascade artery Short Closure System Estimated blood loss: 5 ml Procedure Complications No complications Procedure Medications Medication Administration Route Dosage Oxygen NC 2 l/min Lidocaine 2% added to field 20 Heparin Flush Bag added to field 2 bags (1000units/500ml NS) 0.9% NaCl 100 ml/hr Versed I.V. 1 mg Fentanyl I.V. 50 mcg Versed I.V. 1 mg Fentanyl I.V. 50 mcg Heparin Bolus I.V. 4000 units Versed I.V. 1 mg Hemodynamics Rest BSA: 1.66 (m2) HGB: 11.6 (g/dl) O2 Consumption: Estimated: 150.08 (ml/min) O2 Co nsumption indexed: Estimated:90.41 (ml/min/m) Heart Rate: 71 (bpm) Snapshots Pre Cath Intra NCS Post Cath Vital Signs Time Heart Resp SPO2 etCO2 [id number] NIBP (mmHg) Rhythm Pain Sedation Rate (ipm) (%) (mmHg) (mmHg) Status Level (bpm) 8:54:01 69 14 98 0 0 153/67(107) NSR 0 (11) 10(A) , No pain 8:58:25 69 17 99 0 0 142/57(100) NSR 0 (11) 10(A) , No pain 9:02:43 69 15 99 0 0 134/58(91) NSR 0 (11) 10(A) , No pain 9:07:03 68 17 99 0 0 129/53(94) NSR 0 (11) 10(A) , No pain 9:11:23 69 16 98 0 0 125/50(91) NSR 0 (11) 10(A) , No pain 9:15:37 66 15 98 0 0 147/63(106) NSR 0 (11) 9(A) , No pain 9:20:04 69 16 98 0 0 125/53(88) NSR 0 (11) 9(A) , No pain 9:25:03 73 18 99 0 0 Measuring NSR 0 (11) 9(A) , No pain 9:25:15 71 18 99 0 0 159/69(119) NSR 0 (11) 10(A) , No pain Medications Time Medication Route Dose Verified Delivered Reason Notes Effectiveness by by 8:53:27 Oxygen NC 2 Rodrick Buffie used for l/min Luisa Scott RN procedure 8:53:32 Lidocaine 2% added 20ml Rodrick Rodrick for local to vial Luisa Moran MD anesthetic field 8:53:38 Heparin Flush added 2 Rodrick Rodrick used for Bag to bags Luisa Moran MD procedure (1000units/500ml field NS) 8:56:26 0.9% NaCl 100 Rodrick Rodrick ml/hr Luisa Moran MD 9:11:41 Versed I.V. 1 mg Rodrick Buffie for sedation Luisa Scott RN 9:11:50 Fentanyl I.V. 50 Rodrick Buffie for sedation mcg Luisa Scott RN 9:14:33 Versed I.V. 1 mg Rodrick Buffie for sedation Luisa Scott RN 9:14:36 Fentanyl I.V. 50 Rodrick Buffie for sedation mcg Luisa Scott RN 9:15:46 Heparin Bolus I.V. 4000 Rodrick Buffie for verifie d units Luisa Scott RN anticoagulation with dr moran 9:20:19 Versed I.V. 1 mg Rodrick Buffie for sedation Luisa Scott RN Procedure Log Time Note 8:30:55 Yu Counts RT(R) sent for patient. Start room use. 8:43:29 Admit Source: Other 8:43:35 Diagnostic Cath Status : Elective 8:44:02 Time tracking: Regular hours 8:44:06 Plan of Care:Hemodynamics will remain stable., Cardiac rhythm will remain stable., Comfort level will be maintained., Respiratory function will remain adequate., Patient/ family verbilizes understanding of procedure., Procedure tolerated without complication., Recovers from procedure without complications.. 8:44:28 Patient received from Outpatients to [facility] 1 Alert and oriented. Tansferred to table in Supine position. 8:44:29 Warm blankets applied, and lizeth hugger turned on for patient comfort. 8:44:30 Correct patient and procedure confirmed by team. 8:44:39 Signed procedure consent form obtained from patient. 8:44:44 ECG and BP/O2 sat monitors applied to patient. 8:52:46 Baseline sample Acquired. 8:52:46 Vital chart was started 8:52:50 Rhythm: sinus rhythm 8:52:54 Full Disclosure recording started 8:52:59 H&P Date Dictated: 06/11/2016 Within 30 days and on chart., H&P Addendum completed by physician on day of procedure. (MUST COMPLETE FOR ALL OUTPATIENTS). 8:53:01 Pre-procedure instructions explained to patient. 8:53:01 Pre-op teaching completed and patient verbalized understanding. 8:53:02 Family in waiting room. 8:53:04 Patient NPO since Midnight. 8:53:08 Is the patient allergic to Iodine/contrast media? No. 8:53:10 Was the patient premedicated? No 8:53:11 Is patient on blood thinner?Yes 8:53:14 ACC The patient was administered the following blood thiners within the last 24 hours: ACCPlavix 8:53:17 Patient diabetic? No. 8:53:20 Previous problem with sedation/anesthesia? No ? 8:53:23 Snore? No 8:53:24 Sleep apnea? No 8:53:25 Deviated septum? No 8:53:26 Opens mouth fully? Yes 8:53:27 Oxygen 2 l/min NC was given by Abram Scott RN; used for procedure; 8:53:27 Sticks out tongue? Yes 8:53:29 Airway obstruction? No ? 8:53:32 Lidocaine 2% 20ml vial added to field was given by Rodrick Moran MD; for local anesthetic; 8:53:36 Dentures? Yes in tight 8:53:38 Heparin Flush Bag (1000units/500ml NS) 2 bags added to field was given by Rodrick Moran MD; used for procedure; 8:53:40 Pre procedure: right dorsailis pedis pulse 1+ Palpable, but thready & weak; easily obliterated 8:53:43 Patient pain scale 0/10 ?. 8:53:50 IV patent on arrival in left forearm with 0.9% NaCl at [facility]. 8:55:53 Lab Result : Creatinine 0.9 mg/dl 8:55:53 Lab Result : BUN 21 mg/dl 8:55:53 Lab Result : Hemoglobin 11.6 g/dl 8:55:59 Lab results completed and on chart. 8:56:03 Right groin area was prepped with chlora-prep and draped in sterile fashion 8:56:04 Alarms reviewed by R. N. 8:56:05 Sharps counted by scrub and verified by R.N. 8:56:26 0.9% NaCl 100 ml/hr was given by Rodrick Moran MD; ; 8:59:02 Zero performed for pressure channel P1 8:59:38 Physician paged 9:08:25 Patient Height : 63 inches 9:08:39 Patient Weight : 140 lbs 9:08:52 Insurance Payor : Medicare 9:08:59 Arrival Date: 06/11/2016 12:00:00 AM 9:10:42 Physician arrived 9:10:43 --------ALL STOP TIME OUT------ 9:10:44 Final Timeout: patient, procedure, and site verified with staff and physician. All members of the team are in agreement. 9:10:46 Right groin site verified by team. 9:10:49 Physical assessment completed. ASA score P 2 - A patient with mild systemic disease as per Rodrick Moran MD. 9:10:52 Sedation plan: IV Moderate Sedation Versed, Fentanyl 9:11:09 Medtronic Launcher 6Fr AR 2.0 guide catheter opened to sterile field. 9:11:09 Birchwood [place] IVUS Catheter opened to sterile field. 9:11:16 Use device set Femoral PCI 9:11:18 Acist Syringe opened to sterile field. 9:11:18 Acist Hand Control opened to sterile field. 9:11:19 Bag Decanter opened to sterile field. 9:11:19 Cardinal Cath Pack opened to sterile field. 9:11:20 Terumo 6Fr [place] Sheath opened to sterile field. 9:11:21 St Erasmo 260cm J .035 wire opened to sterile field. 9:11:21 Merit BasixCompak Inflation Kit opened to sterile field. 9:11:23 Acist Manifold opened to sterile field. 9:11:25 Tegaderm 4 x 4 opened to sterile field. 9:11:41 Versed 1 mg I.V. was given by Abram Scott RN; for sedation; 9:11:50 Fentanyl 50 mcg I.V. was given by Abram Scott RN; for sedation; 9:12:58 Procedure started. 9:13:19 Local anesthetic to right femoral artery with Lidocaine 2% by Rodrick Moran MD.INITIAL ACCESS ONLY 9:13:30 A 6 Fr Short sheath was inserted into the Right Femoral artery 9:13:36 6 Fr ar 2 guide catheter was inserted over the wire 9:13:43 whisper wire advanced. 9:13:45 Wire advanced across lesion. 9:13:50 IVUS catheter advanced over wire. 9:14:33 Versed 1 mg I.V. was given by Abram Scott RN; for sedation; 9:14:36 Fentanyl 50 mcg I.V. was given by Abram Scott RN; for sedation; 9:15:21 IVUS pass to RCA lesion performed. 9:15:46 Heparin Bolus 4000 units I.V. was given by Abram Scott RN; for anticoagulation; verified with dr moran 9:19:11 IVUS catheter removed over wire. 9:20:19 Versed 1 mg I.V. was given by Abram Scott RN; for sedation; 9:21:09 Inflation Number: 1 A Medtronic Resolute 4.0 X 38 stent was prepped and advanced across the Mid RCA. The stent was deployed at 21 YAQUELIN for 0:10 (min:sec). 9:22:06 Inflation number: 2 The stent balloon was then re-inflated across the Mid RCA to 3 YAQUELIN for 0:10 (min:sec). 9:22:16 Stent catheter was removed intact over wire. 9:22:20 Wire removed. 9:22:21 Guide catheter removed. 9:23:09 Vascade 6/7 Fr Closure Device opened to sterile field. 9:23:20 Sheath removed intact; hemostasis achieved with Vascade Closure System to the Right Femoral artery. 9:23:22 Procedure ended.(Physican Out) 9:24:04 Fluoroscopy time 03.60 minutes. 9:24:09 Flurop Dose total: 193 9:24:09 Fluoroscopy dose: 193 mGy 9:24:14 Contrast amount:Isovue 370 56ml. 9:24:16 Sharps counted by scrub and verified by R.N. 9:24:19 Insertion/operative site no bleeding no hematoma. 9:24:24 Post-op/insertion site Right Femoral artery dressed using a 4 x 4 and Tegaderm. 9:24:27 Post right femoral artery:stable 9:24:28 Post Procedure Pulses reassessed and unchanged 9:24:32 Post procedure rhythm: unchanged. 9:24:35 Estimated blood loss: 5 ml 9:24:36 Post procedure instruction explained to patient.Patient verbalizes understanding. 9:24:37 Patient needs reinforcement of post procedure teaching. 9:24:53 Procedure type changed to Cath procedure, Diagnostic procedure, FFR/IVUS, Intra-Coronary IVUS Initial, PCI procedure, Coronary Stent Initial 9:24:54 Procedure and supply charges have been captured, reviewed, submitted and are correct. 9:25:35 Procedure Complication : No complications 9:25:38 Vital chart was stopped 9:25:39 See physician's report for complete and final results. 9:25:42 Report given to Post Procedure Room. 9:25:44 Patient transfered to Post Procedure Room with Stretcher. 9:25:48 Procedure ended. 9:25:48 Full Disclosure recording stopped 9:25:58 ACC-PCI Only Patient was given prescriptions, or instructed by Rodrick Moran MD to start/continue the following medications upon discharge: Plavix 9:26:00 End room use (Document Last) Intervention Summary Intervention Notes Time ActionType Lesion and Equipment Action# Pressure Duration Attributes Used 9:21:09 Place stent Mid RCA Medtronic 1 21 00:10 Resolute 4.0 X 38 stent 9:22:06 Reinflate Mid RCA Medtronic 2 3 00:10 stent Resolute balloon 4.0 X 38 stent Device Usage Item Name Manufacture Quantity Catalog Hospital Part Current Minima l Lot# / Number Charge Number Stock Stock Serial# Code Medtronic Medtronic 1 [id number] [id number] 1 Launcher 6Fr AR 2.0 guide catheter Birchwood Birchwood 1 [id number] 032851 135060 688771 8 [place] IVUS Catheter Acist Acist 1 02901 823452 990349 216682 20 Syringe Medical Systems Inc Acist Hand Acist 1 15731 307263 253818 123427 5 Control just.me Inc Bag Microtek 1 201506 25226 734624 5 DecApps4Pro Inc. Cardinal Cardinal 1 [id number] 030655 63167 845285 5 Cath Pack Health Terumo 6Fr Terumo 1 [id number] 524177 014039 632885 [address] [place] [address] Erasmo St Erasmo 1 763234 518860 982498 127146 30 260cm J .035 wire Merit Merit 1 AZ5889 417170 974503 388294 15 [facility] [facility] Medical Inflation Kit Acist Acist 1 66411 084518 996250 698756 5 Thrupoint Systems Inc Tegaderm 4 3M 1 1626W 173375 014177 251342 5 x 4 Medtronic Medtronic 1 [id number] 102585 863843 0 [id number] Resolute 4.0 X 38 stent Vascade 10/09 Cardiva 1 [id number] 545581 688104 154145 5 Fr Closure Medical, Device Inc. Signature Audit [place] Stage Time Signature Unsigned Intra-Procedure 06/11/2016 Vania Bobby 9:31:25 AM RT(R) Signatures Monitor : Vania Bobby RT Signature : Date : Time : [place] [id number] [place] [address]
[~2016-06-11 07:41] MED LIST: AMBIEN10 MG; AMBIEN10 MG PO; ASPIRIN81 MG PO; GABAPENTIN100 MG PO; NEXIUM40 MG; NEXIUM40 MG PO; PLAQUENIL200 MG PO; PLAVIX75 MG PO; PREMARIN0.625 MG PO; PROAIR HFA8.5 GM INH; ROPINIROLE HCL2 MG PO; WELLBUTRIN SR150 MG PO
[2016-06-11 08:15] VITALS: BP 181/76; Ht 160 cm; Wt 59.1 kg
[2016-06-11 08:26] LABS: BASOPHILS 0.4 % (0.0-2.0); EOSINOPHILS 1.3 % (0-7); HEMOGLOBIN 11.6 g/dL (12-16); IMMATURE GRANULOCYTES 0.4 % (0-5); LYMPHOCYTES 34.8 % (15-50); MCH 31.3 pg (26.0-34.0); MCHC 33.1 g/dL (31.0-37.0); MCV 94.3 fL (80.0-100.0); MEAN PLATELET VOLUME 9.5 fL (7.4-10.4); MONOCYTES 7.9 % (2-11); NEUTROPHILS 55.2 % (40-80); PLATELET COUNT 240 10x3/uL (130-400); RBC 3.71 10x6/uL (4.00-5.40); WBC 6.8 10x3/uL (4.8-10.8)
[2016-06-11 08:35] LABS: ANION GAP 11.3 mmol/L (8-16); CALCIUM 8.9 mg/dL (8.5-10.1); CARBON DIOXIDE 27.7 mmol/L (21.0-32.0); CREATININE - SERUM 0.9 mg/dL (0.6-1.3)
--- NOTE | 2016-06-11 10:52 | NUR ---
0940 RECEIVED PT FROM SWITCH TECHNICIAN. PT IS DROWSY, AWAKENS TO VERBAL STIMULI. PT DENIES ANY C/O AT THIS TIME. DRESSING TO RIGHT GROIN IS CDI, NO BLEEDING OR HEMATOMA NOTED. PEDAL PULSES PALPABLE. RR EVEN AND UNLABORED , ON O2 AT 2 LPM VIA NC. DAUGHTER AT BEDSIDE. VSS, ON MONITOR. SINUS RHYTHM, RATE 73. INSTRUCTED PT AND DAUGHTER ON PT'S BEDREST STATUS, KEEP HOB NO HIGHER THAN 30 DEGREES AND HEAD TO PILLOW. KEEP RIGHT LEG STRAIGHT. CALL LIGHT IN REACH, PT INSTRUCTED TO CALL FOR NEEDS.
--- NOTE | 2016-06-11 11:30 | NUR ---
6 FR VASCADE R/GROIN CDI NO BLEEDING NO HEMATOMA NOTED CHEST PAIN IS DENIED VSS WITH FAMILY AT SIDE 1200 NO CHANGE IN ASSESSMENT PATIENT CONTINUES TO SLEEP WITH NO DISTRESS NOTED
--- NOTE | 2016-06-11 12:42 | NUR ---
1215 PT STATES LITTLE RELIEF FROM EARLIER PAIN MEDICATION. ORDER RECEIVED FOR NORCO 5 MG TAB PO X1. PT STATES TENDERNESS TO RIGHT GROIN, DRESSING TO RIGHT GROIN IS STABLE WITH NO BLEEDING OR HEMATOMA NOTED. PEDAL PULSES PALPABLE. PT STATES ALSO HAVING BACKACHE FROM LAYING FLAT. CALL LIGHT IN REACH, PT INSTRUCTED TO CALL FOR NEEDS. 1230 NORCO 5 MG ONE TAB GIVEN PO PER ORDERS.
--- NOTE | 2016-06-11 14:26 | NUR ---
1315 PT STATES PAIN LEVEL IS A 5/10 AFTER NORCO. STATES FEELS 'VERY MUCH BETTER'. 1345 IV DC'D WITH CATH INTACT. 1400 REVIEWED DC INSTRUCTIONS WITH PT AND DAUGHTER WHO VERBALIZE UNDERSTANDING. PT HAS AMBULATED TO THE BATHROOM AND VOIDED QS. IS DRESSING FOR DC TO HOME. 1415 PT ESCORTED TO PRIVATE AUTO VIA WC BY STAFF. GROIN REMAINS STABLE WITH NO BLEEDING OR HEMATOMA. PT DENIES C/O.
--- NOTE | 2016-06-13 13:59 | OP ---
PATIENT NAME: DENAE HALLMAN MEDICAL RECORD: [id number] :35 LOCATION:D.CAT ADMISSION DATE: SURGEON: AMY OSBORNE MD DATE OF OPERATION: 06/11/2016 PROCEDURES: 1. PTCA, stent RCA. 2. Intravascular ultrasound of the RCA. 3. Selective coronary angiography. INDICATION: Angina and coronary artery disease. PROCEDURE IN DETAIL: After informed consent was obtained and after detailed explanation of risks, benefits as well as alternative therapies, the patient elected to proceed with angiogram and angioplasty. The right femoral area was prepped and draped in normal sterile fashion. The right femoral artery was cannulated via modified Seldinger technique with placement of 6-Kinyarwanda sheath. All catheters exchanged through this sheath. At the end of the case, all catheters sheath also removed. Hemostasis was obtained via Vascade and direct compression. The patient tolerated the procedure well with no complication and returned back to the room in stable hemodynamic condition. FINDINGS: The right coronary has greater than 70% stenosis in the mid vessel confirmed by intravascular ultrasound. This was addressed with a 4.0 x 38 mm Resolute stent. Result was 0% residual stenosis. OVERALL IMPRESSION: Successful percutaneous transluminal coronary angioplasty stent of the right coronary artery going from greater than 70% initial stenosis to 0% residual stenosis. TRANSINT:[id number] Voice Confirmation ID: [id number] DOCUMENT ID: [id number] AMY OSBORNE MD at 1359 CC: [id number] DICTATION DATE: 06/11/16 0927 POLYMER CHEMIST: 06/11/16 0945 DEP CLI 06/11/16 [place] [id number]
--- NOTE | 2016-06-13 13:59 | HP ---
PATIENT: DENAE HALLMAN MEDICAL RECORD: [id number] ACCOUNT: [id number] LOCATION:[facility]U : 35 ADMISSION DATE: 06/11/16 HISTORY AND PHYSICAL EXAMINATION DATE OF SERVICE: 06/11/2016 ADMITTING DIAGNOSES: 1. Angina. 2. Coronary artery disease. 3. Recent percutaneous transluminal coronary angioplasty stent left anterior descending and circumflex with concomitant disease of the RCA. 4. Hypertension. HISTORY OF PRESENT ILLNESS: This is a woman who presented last week with unstable anginal symptomatology, found to have 3-vessel coronary artery disease, underwent successful PTCA stent of the LAD and circumflex. He is now brought back for PTCA stent of the RCA in a staged fashion. PHYSICAL EXAMINATION: GENERAL APPEARANCE: Well-nourished, well-developed, appears stated age. Level of distress, comfortable. PSYCHIATRIC: Mental status, alert, normal affect. Orientation, oriented to time, place and person. EYES: Lids and conjunctiva, noninjected. No discharge, no pallor ENT: Lips, teeth, gums, normal dentition. Oropharynx, no cyanosis, no pallor. NECK: Carotid arteries, bilateral normal upstroke, no bruits, no thrills. JUGULAR VEINS: No jugular venous pressure or distention. CERVICAL LYMPH NODES: Nontender, nonenlarged. THYROID: Not enlarged. Nontender. No nodules. LUNGS: Respiratory effort, unlabored. CHEST: Normal curvature. No thoracic deformity. No chest wall tenderness. Percussion, resonant. Auscultation, clear. No wheezes, no rales, no rhonchi. CARDIOVASCULAR: Precordial exam, nondisplaced. No heaves or pericardial thrills. Rate and rhythm, regular. Heart sounds, normal S1, normal S2. No S3, no gallop, no rub. Systolic murmur, not heard. Diastolic murmur, not heard. EXTREMITIES: No cyanosis, no edema. Peripheral pulses, full and equal in all extremities, except as noted. No bruits appreciated. ABDOMEN: Soft, nondistended. Normal aorta. No bruit. Nontender. No masses. Liver, nontender, no hepatomegaly. Spleen, nontender, no splenomegaly. MUSCULOSKELETAL: No joint tenderness. No joint swelling. No erythema. NEUROLOGICAL: Normal gait, normal strength, normal tone. SKIN: Warm and dry. REVIEW OF SYSTEMS: The patient reports easy bruising but reports no swollen glands. The patient reports no fever, no night sweats, no significant weight gain, no significant weight loss. No significant exercise tolerance. The patient reports no dry eyes, no irritation, no vision change. Patient reports no difficulty hearing and no ear pain. Patient reports no frequent nose bleeds or nose and sinus problems. Patient reports on arm pain on exertion. No shortness of breath while lying down. No history of heart murmur. Patient reports no cough, no wheezing or coughing up blood. Patient reports no abdominal pain, no vomiting. Normal appetite. No diarrhea and not vomiting blood. No nausea and no constipation. Patient reports no incontinence. No difficulty urinating. No hematuria. No increased frequency. Patient reports HISTORY AND PHYSICAL [id number] DENAE HALLMAN no muscle aches. No weakness, no arthralgias, no back pain. No swelling of the extremities. Patient reports no abnormal mole, no jaundice, no rashes. Reports no loss of consciousness. No weakness and no numbness. No seizures, dizziness, or headaches. The patient reports no depression, no sleep disturbance, feeling safe in a relationship and no alcohol abuse. Patient reports on fatigue. Reports no runny nose or sinus pressure. No itching, no hives, and no frequent sneezing. OVERALL IMPRESSION: Anginal symptomatology with significant disease of the RCA. We will proceed with PTCA stent of the RCA. TRANSINT:[id number] Voice Confirmation ID: [id number] DOCUMENT ID: [id number] AMY OSBORNE MD at 1359 CC: [id number] DICTATION DATE: 06/11/16825 COUNTER CLERK F[employer] E[employer] PARTS: 06/11/16 0836 DEP CLI 06/11/16 [facility] [address] [place] [id number]
== END 2016-06-11 14:15 | disposition home or self-care (01) ==
LOC: D.CATH 07:41
PROVIDERS: Internal Medicine Interventional Cardiology
DX: I25.119 Atherosclerotic heart disease of native coronary artery with unspecified angina pectoris (principal); Z95.5 Presence of coronary angioplasty implant and graft; I10 Essential (primary) hypertension
CPT/HCPCS: 92978; C9600

== ENCOUNTER 2016-10-07 22:38 | Observation (INO) | payer MEDICARE, BC ==
[~2016-10-07] VITALS: Ht 160 cm; Wt 62.5 kg
--- NOTE | ~2016-10-07 | HP ---
PATIENT: DENAE HALLMAN MEDICAL RECORD: [id number] ACCOUNT: [id number] LOCATION:[address] : [birth year] ADMISSION DATE: 10/08/16 HISTORY AND PHYSICAL EXAMINATION HISTORY OF PRESENT ILLNESS: An 81-year-old lady with a known history of coronary artery disease, status post intervention in May of this year by Dr. Moran. She had a PTCA of the right at that time. She has a history of recurrent chest pain. Some of this is atypical, but typical for her angina. Some pleuritic components and had been noticing more dyspnea on exertion. She was admitted for further evaluation. PAST MEDICAL HISTORY: 1. Includes a history of coronary artery disease as described above. 2. Hypertension. 3. Lupus, on Plaquenil, does a 6-month eye exam. 4. Gastroesophageal reflux disease. ALLERGIES: None known. MEDICATIONS: Typically include Plaquenil 200 mg p.o. daily, albuterol 2 puffs q. 4 p.r.n., Plavix 75 daily, aspirin 81 daily, Neurontin 100 b.i.d., Requip 2 mg b.i.d., Ambien 10 p.r.n., Wellbutrin 150 daily and Nexium 40 daily. SOCIAL HISTORY: Lives at home, does try to exercise. She is a nonsmoker. REVIEW OF SYSTEMS: The patient reports easy bruising but reports no swollen glands. The patient reports no fever, no night sweats, no significant weight gain, no significant weight loss. No significant exercise tolerance. The patient reports no dry eyes, no irritation, no vision change. Patient reports no difficulty hearing and no ear pain. Patient reports no frequent nose bleeds or nose and sinus problems. Patient reports on arm pain on exertion. No shortness of breath while lying down. No history of heart murmur. Patient reports no cough, no wheezing or coughing up blood. Patient reports no abdominal pain, no vomiting. Normal appetite. No diarrhea and not vomiting blood. No nausea and no constipation. Patient reports no incontinence. No difficulty urinating. No hematuria. No increased frequency. Patient reports no muscle aches. No weakness, no arthralgias, no back pain. No swelling of the extremities. Patient reports no abnormal mole, no jaundice, no rashes. Reports no loss of consciousness. No weakness and no numbness. No seizures, dizziness, or headaches. The patient reports no depression, no sleep disturbance, feeling safe in a relationship and no alcohol abuse. Patient reports on fatigue. Reports no runny nose or sinus pressure. No itching, no hives, and no frequent sneezing. PHYSICAL EXAMINATION: GENERAL: Pleasant female, in no acute distress. VITAL SIGNS: Blood pressure 137/54, pulse 55 and regular. HEENT: Normocephalic and atraumatic. NECK: No bruits noted. HEART: Regular, II/ systolic ejection murmur. LUNGS: Good air excursion. ABDOMEN: Soft, nontender. EXTREMITIES: Pulses 2+. There is no edema. HISTORY AND PHYSICAL [id number] LEXXDENAEJUAN MIGUEL DIAGNOSTIC DATA: The ECG shows no acute changes. Enzymes negative. IMPRESSION: Acute coronary syndrome, concern for a well-within window for restenosis. PLAN: For diagnostic angiography, intervention based on the above. TRANSINT:[id number] Voice Confirmation ID: [id number] DOCUMENT ID: [id number] LUIS MCCONNELL MD CC: [id number] DICTATION DATE: 10/08/16919 DESIGN DRAFTER CHIEF: 10/08/16 1112 ADM IN [facility] [address] [place] [id number]
--- NOTE | ~2016-10-07 | OP ---
PATIENT NAME: DENAE HALLMAN MEDICAL RECORD: [id number] :35 LOCATION:D.M2 D.2115 ADMISSION DATE:10/08/16 SURGEON: LUIS MCCONNELL MD DATE OF OPERATION: 10/08/2016 PROCEDURES: Left heart catheterization, selective coronary angiography, right femoral artery approach. CATHETERS: A 5-Yoruba sheath, 5/4 left and right Jonnathan, 5/4 pig. The procedure was well tolerated. The patient returned to [place]. Sheath removed. ExoSeal device was placed. FINDINGS: Left ventriculography in the 30-degree DUNN view: Normal wall motion, normal systolic function. CORONARY ANATOMY: Left main: Left main is free of disease. LAD: LAD is the area of previous stenting is widely patent. No evidence of restenosis. No progression of [place] disease. CIRCUMFLEX: Circumflex is a medium-sized vessel, no evidence of restenosis. No evidence of progression of [place] disease. RIGHT CORONARY ARTERY: No evidence of restenosis. No progression of [place] disease. IMPRESSION: Normal systolic function, no evidence of restenosis, noncardiac chest pain. TRANSINT:[id number] Voice Confirmation ID: [id number] DOCUMENT ID: [id number] LUIS MCCONNELL MD CC: [id number] DICTATION DATE: 10/08/16 1057 BULLION WEIGHER: 10/08/162011 DIS IN 10/08/16 [facility] [address] [place] [address]
--- NOTE | ~2016-10-07 | HEMODYNAMI ---
PATIENT:DENAE HALLMAN MEDICAL RECORD: [id number] : 35 [address] [id number] ADMISSION DATE: 10/08/16 Generatedon:10/08/201610:55 Patient name: DENAE HALLMAN Patient #: [id number] : 1935 Date of study: 10/08/2016 Page: Of Hemodynamic Procedure Report Patient Data Patient Demographics Procedure consent was obtained First Name: DENAE Gender: Female Last Name: LEXX : 1935 [facility] Initial: J Age: 81 year(s) Patient #: [id number] Race: SSN: [id number] Additional ID: [id number] Contact details [address]: [address] [place] [address] State: [place] City: [place] Zip code: [address] Past Medical History Allergies: No known allergies Admission Admission Data Admission Date: 10/08/2016 Admission Time: 1:23 Room #: [facility] Lab Results Lab Result Date: 10/08/2016 Lab Result Time: 0:00 Biochemistry Name Units Result Min Max BUN mg/dl 18 --(---*)-- 7 18 Creatinine mg/dl 0.9 --(-*--)-- 0.6 1.3 CBC Name Units Result Min Max Hemoglobin g/dl 10.5 *-(----)-- 13.5 17.5 Procedure Procedure Types Cath Procedure Diagnostic Procedure C [facility] w/Coronaries Miscellaneous Procedures Moderate Sedation up to 15 minutes Procedure Description Procedure Date Procedure Date: 10/08/2016 Procedure Start Time: 10:41 Procedure End Time: 10:51 Procedure Staff Name Function Boogie Patel MD Performing Physician Monica Amato RT Scrub Abram Scott RN Nurse Yung Sung RT Monitor Procedure Data Cath Procedure Fluoroscopy Diagnostic fluoroscopy Total fluoroscopy Time: 1.4 time: 1.4 min min Diagnostic fluoroscopy Total fluoroscopy dose: 261 dose: 261 mGy mGy Contrast Material Contrast Material Type Amount (ml) Isovue 300 65 Entry Location Entry Primary Successful Side Size Upsize Upsize Entry Closure Succes sful Closure Location (Fr) 1 (Fr) 2 (Fr) Remarks Device Remarks Femoral Right 5 Fr Exoseal artery Estimated blood loss: 10 ml Diagnostic catheters Device Type Used For End Catheter Placement Cordis 5Fr JL 4.0 Procedure Catheter (MP) Cordis 5Fr 3DRC Catheter Procedure (MP) Cordis 5Fr Pigtail Procedure Catheter (MP) Procedure Complications No complications Procedure Medications Medication Administration Route Dosage Oxygen NC 2 l/min Lidocaine 2% added to field 20 Heparin Flush Bag added to field 2 bags (1000units/500ml NS) 0.9% NaCl I.V. 100 ml/hr Versed I.V. 1 mg Fentanyl I.V. 50 mcg Solumedrol I.V. 125 mg Versed I.V. 1 mg Fentanyl I.V. 50 mcg Fentanyl I.V. 25 mcg Hemodynamics Rest HGB: 10.5 (g/dl) Heart Rate: 59 (bpm) Pressure Samples Time Site Value (mmHg) Purpose Heart Use Rate(bpm) 10:43 AO 192/8(38) Snapshot 56 10:47 LV 132/2,12 Snapshot 62 Gradients Valve Time Site Site Mean SEP/DFP Peak To Heart Use 1 2 (mmHg) (sec/min) Peak Rate (mmHg) (bpm) Aortic 10:47 LV AO 57 Snapshots Pre Cath Intra NCS Post Cath Vital Signs Time Heart Resp SPO2 etCO2 [id number] NIBP (mmHg) Rhythm Pain Status Claudia tion Rate (ipm) (%) (mmHg) (mmHg) Level (bpm) 10:16:23 60 25 97 0 0 Measuring NSR 5 (11) , 10(A ) Very distressing 10:16:59 62 22 98 0 0 190/82(167) NSR 5 (11) , 10(A ) Very distressing 10:21:30 60 24 99 0 0 197/85(150) NSR 5 (11) , 10(A ) Very distressing 10:26:05 57 19 100 0 0 198/77(139) NSR 5 (11) , 10(A ) Very distressing 10:30:41 58 13 99 0 0 152/70(117) NSR 5 (11) , 10(A ) Very distressing 10:35:05 57 15 96 0 0 130/58(97) NSR 5 (11) , 10(A ) Very distressing 10:39:21 56 17 97 0 0 126/60(100) NSR 5 (11) , 10(A ) Very distressing 10:43:37 55 16 97 0 0 124/56(97) NSR 0 (11) , No 10(A ) pain 10:47:51 56 16 96 0 0 125/61(109) NSR 0 (11) , No 10(A ) pain 10:53:05 55 17 99 0 0 174/73(140) NSR 0 (11) , No 10(A ) pain Medications Time Medication Route Dose Verified Delivered Reason Notes Ef fectiveness by by 10:23:23 Oxygen NC 2 Boogie Buffie used for l/min [facility]. Tone Scott technical professional 10:23:30 Lidocaine 2% added 20ml Boogie Buffie used for to vial St. Tone Scott technical professional field BILL 10:23:36 Heparin Flush added 2 Boogie Buffie used for Bag to bags [facility]. Tone Scott technical professional (1000units/500ml field BILL NS) 10:23:44 0.9% NaCl I.V. 100 Boogie Buffie Per ml/hr St. Tone Scott RN physician 10:40:34 Versed I.V. 1 mg Boogie Buffie for TraskwoodYonis Scott RN sedation 10:40:41 Fentanyl I.V. 50 [address] for mcg [address] Tone Scott RN sedation 10:42:56 Solumedrol I.V. 125 Boogie Buffie Per for mg [facility]. Tone Scott RN physician sendy BILL type pain 10:46:15 Versed I.V. 1 mg Boogie Buffie for AmandaTone Scott RN sedation 10:46:19 Fentanyl I.V. [address] for mcg [address] Tone Scott RN sedation 10:49:07 Fentanyl I.V. 25 Boogie Buffie for mcg TraskwoodTone Scott RN sedation Procedure Log Time Note 9:37:08 ACC Patient presents with Unstable Angina CCS Anginal Class 3--Marked limitation of physical activity, angina occurs with ordinary activity.. 9:37:11 Diagnostic Cath status Urgent 9:37:15 Yung HUNG(R) sent for patient. Start room use. 9:37:22 Time tracking: Regular hours 9:37:27 Plan of Care:Hemodynamics will remain stable., Cardiac rhythm will remain stable., Comfort level will be maintained., Respiratory function will remain adequate., Patient/ family verbilizes understanding of procedure., Procedure tolerated without complication., Recovers from procedure without complications.. 9:37:59 Lab Result : BUN 18 mg/dl 9:37:59 Lab Result : Creatinine 0.9 mg/dl 9:37:59 Lab Result : Hemoglobin 10.5 g/dl 9:38:18 Lab results completed and on chart. 10:06:29 Patient received from PCU to CCL 1 Alert and oriented. Tansferred to table in Supine position. 10:06:30 Warm blankets applied, and lizeth hugger turned on for patient comfort. 10:06:31 Correct patient and procedure confirmed by team. 10:06:32 Signed procedure consent form obtained from patient. 10:06:33 ECG and BP/O2 sat monitors applied to patient. 10:10:04 H&P Date Dictated: 10/07/2016 Within 30 days and on chart.. 10:10:06 Pre-procedure instructions explained to patient. 10:10:11 Family unavailable. 10:10:14 Patient NPO since Midnight. 10:10:26 Patient allergic to No known allergies 10:10:32 Is the patient allergic to Iodine/contrast media? No. 10:10:35 Is patient on blood thinner?Yes 10:10:39 ACC The patient was administered the following blood thiners within the last 24 hours: ACCPlavix 10:10:43 Patient diabetic? No. 10:10:55 Snore? No 10:10:57 Sleep apnea? No 10:11:07 Airway obstruction? Yes asthma, COPD 10:14:27 Dentures? Yes tight 10:14:34 Vital chart was started 10:14:43 Baseline sample Acquired. 10:14:59 Rhythm: sinus rhythm 10:15:01 Full Disclosure recording started 10:15:25 IV patent on arrival in right forearm with 0.9% NaCl at O. 10:19:46 Right groin area was prepped with chlora-prep and draped in sterile fashion 10:19:48 Alarms reviewed by R. N. 10:19:49 Sharps counted by scrub and verified by R.N. 10:19:54 Physician paged 10:21:07 Use device set Femoral Dx 10:21:38 IV Extension Set opened to sterile field. 10:21:40 Acist Syringe opened to sterile field. 10:21:41 Bag Decanter opened to sterile field. 10:21:42 Medline Cath Pack opened to sterile field. 10:21:43 Terumo 5Fr [place] Sheath opened to sterile field. 10:21:43 St Erasmo 260cm J .035 wire opened to sterile field. 10:21:46 Acist Hand Control opened to sterile field. 10:21:47 Acist Manifold opened to sterile field. 10:21:48 Diagnostic Infinity 5Fr Multipack catheter opened to sterile field. 10:21:49 Tegaderm 4 x 4 opened to sterile field. 10:23:23 Oxygen 2 l/min NC was administered by Abram Scott RN; used for procedure; 10:23:30 Lidocaine 2% 20ml vial added to field was administered by Abram Scott RN; used for procedure; 10:23:36 Heparin Flush Bag (1000units/500ml NS) 2 bags added to field was administered by Abram Scott RN; used for procedure; 10:23:44 0.9% NaCl 100 ml/hr I.V. was administered by Abram Scott RN; Per physician; 10:25:22 Physician arrived 10:26:00 Zero performed for pressure channel P1 10:26:11 Zero performed for pressure channel P1 10:39:48 --------ALL STOP TIME OUT------ 10:39:49 Final Timeout: patient, procedure, and site verified with staff and physician. All members of the team are in agreement. 10:39:52 Right groin site verified by team. 10:39:57 Physical assessment completed. ASA score P 2 - A patient with mild systemic disease as per Boogie Patel MD. 10:40:01 Sedation plan: IV Moderate Sedation Versed, Fentanyl 10:40:34 Versed 1 mg I.V. was administered by Abram Scott RN; for sedation; 10:40:41 Fentanyl 50 mcg I.V. was administered by Abram Scott RN; for sedation; 10:40:57 Procedure started. 10:41:01 Local anesthetic to right femoral artery with Lidocaine 2% by Boogie Patel MD.INITIAL ACCESS ONLY 10:41:19 Procedure type changed to Cath procedure, Diagnostic procedure, LHC, LHC w/Coronaries, Miscellaneous Procedures, Moderate Sedation up to 15 minutes 10:41:40 A 5 Fr sheath was inserted into the Right Femoral artery 10:42:16 A Cordis 5Fr JL 4.0 Catheter (MP) was advanced over the wire and used for Procedure. 10:42:21 LCA angiography performed. 10:42:56 Solumedrol 125 mg I.V. was administered by Abram Scott RN; Per physician; for plueritic type pain 10:44:21 Catheter removed. 10:44:30 A Cordis 5Fr 3DRC Catheter (MP) was advanced over the wire and used for Procedure. 10:44:38 RCA angiography performed. 10:46:15 Versed 1 mg I.V. was administered by Abram Scott RN; for sedation; 10:46:18 Catheter removed. 10:46:19 Fentanyl 50 mcg I.V. was administered by Abram Scott RN; for sedation; 10:46:26 A Cordis 5Fr Pigtail Catheter (MP) was advanced over the wire and used for Procedure. 10:46:31 LV angiography performed. 10:47:33 EF : 55 % 10:47:55 Catheter removed. 10:48:14 Cordis 5Fr Exoseal opened to sterile field. 10:48:52 Sheath removed intact; hemostasis achieved with Exoseal to the Right Femoral artery. 10:49:07 Fentanyl 25 mcg I.V. was administered by Abram Scott RN; for sedation; 10:49:07 Procedure ended.(Physican Out) 10:49:58 Fluoroscopy time 01.40 minutes. 10:50:08 Fluoroscopy dose: 261 mGy 10:50:08 Flurop Dose total: 261 10:50:13 Contrast amount:Isovue 300 65ml. 10:50:16 Sharps counted by scrub and verified by R.N. 10:50:26 Insertion/operative site no bleeding no hematoma. 10:50:31 Post-op/insertion site Right Femoral artery dressed using a 4 x 4 and Tegaderm. 10:50:38 Post Procedure Pulses reassessed and unchanged 10:50:50 Post procedure rhythm: unchanged. 10:50:54 Estimated blood loss: 10 ml 10:50:58 Post procedure instruction explained to patient.Patient verbalizes understanding. 10:51:00 Patient needs reinforcement of post procedure teaching. 10:51:06 Procedure and supply charges have been captured, reviewed, submitted and are correct. 10:51:35 Procedure Complication : No complications 10:51:38 Vital chart was stopped 10:51:39 See physician's report for complete and final results. 10:51:47 Report given to [facility]. 10:51:51 Patient transfered to [facility] with Bed. 10:51:54 Procedure ended. 10:51:54 Full Disclosure recording stopped 10:51:57 End room use (Document Last) Device Usage Item Name Manufacture Quantity Catalog Hospital Part Current Minimal Lo t# / Number Charge Number Stock Stock Serial# Code IV Hospira 1 39717-68 [id number] 40189 [id number] 5 Extension Set Acist Acist 1 42898 195185 [id number] 157048 20 Syringe [employer] Inc Bag Microtek 1 2002S 029152 65596 852148 5 Dec[employer]terio[employer] Medline Cardinal 1 [id number] 453525 00734 624329 5 Cath Pack Health Terumo 5Fr Terumo 1 [id number] 567970 405636 198884 [address]o St Erasmo 1 [id number] 361442 902453 382297 30 260cm J .035 wire Acist Hand Acist 1 03793 440765 458688 589762 5 Control Medical Systems Inc Acist Acist 1 75870 036991 522105 475639 5 Manifold Medical Systems Inc Diagnostic Cardinal 1 [id number] 310904 23142 991807 30 Infinity Health 5Fr Multipack catheter Tegaderm 4 3M 1 1626W 983170 068683 055131 5 x 4 Cordis 5Fr Cardinal 1 838317 5 JL 4.0 Health Catheter (MP) Cordis 5Fr Cardinal 1 997898 5 3DRC Health Catheter (MP) Cordis 5Fr Cardinal 1 937965 5 Pigtail Health Catheter (MP) Cordis 5Fr Cardinal 1 EX500 924136 751533 222091 10 [employer] Signature Audit Meredith Stage Time Signature Unsigned Intra-Procedure 10/08/2016 Monica Amato 10:55:01 AM RT(R) Signatures Monitor : Yung Sung RT Signature : Date : Time : [place] [address] [place] [address]
[2016-10-07 23:58] LABS: HEMATOCRIT 31.6 % (36.0-48.0); HEMOGLOBIN 10.5 g/dL (12-16); LYMPHOCYTES 34.7 % (15-50); MCH 30.1 pg (26.0-34.0); MCHC 33.2 g/dL (31.0-37.0); MCV 90.5 fL (80.0-100.0); MEAN PLATELET VOLUME 8.7 fL (7.4-10.4); NEUTROPHILS 54.4 % (40-80); PLATELET COUNT 241 10x3/uL (130-400); RBC 3.49 10x6/uL (4.00-5.40); RDW 17.4 % (11.5-14.5)
[2016-10-08 00:07] LABS: ALBUMIN 2.9 g/dL (3.4-5.0); ALKALINE PHOSPHATASE 65 U/L (46-116); ALT (SGPT) 17 U/L (10-68); BILIRUBIN - TOTAL 0.21 mg/dL (0.2-1.3); CALC OSMOLALITY 282 mosm/kg (275-300); CALCIUM 8.7 mg/dL (8.5-10.1); CARBON DIOXIDE 27.5 mmol/L (21.0-32.0); CHLORIDE - SERUM 106 mmol/L (98-107); CREATININE - SERUM 0.9 mg/dL (0.6-1.3); GLUCOSE 106 mg/dL (74-106); POTASSIUM - SERUM 3.8 mmol/L (3.5-5.1); PROTEIN - SERUM 6.7 g/dL (6.4-8.2); SODIUM 141 mmol/L (136-145); UREA NITROGEN 18 mg/dL (7-18); eGFR NON AFRICAN AMERICAN 64 mL/min (90-120)
[2016-10-08 00:19] LABS: CHOL - HDL RATIO 2.6 ratio (2.3-4.1); CHOLESTEROL, TOTAL 186 mg/dL (0-200); CKMB 0.8 U/L (0.0-3.6); CREATINE KINASE 35 UL (21-215); HDL CHOLESTEROL 73 mg/dL (32-96); LDL CHOLESTEROL 80 mg/dL (0-100); LDL-HDL RATIO 1.1 ratio (1.5-3.5); TRIGLYCERIDE 168 mg/dL (30-200)
[2016-10-08 00:20] LABS: TROPONIN-I < 0.017 ng/mL (0.000-0.060)
--- NOTE | 2016-10-08 02:48 | NUR ---
REPORT RECEIVED FROM JODIE JUNG IN THE ED. PT DENIES ACTIVE DP, CARDIAC LABS AND ECG -, B/P NOW STABLE @ 139/60, NITRO PATCH PLACED TO LEFT CHEST 0.3MG, METOPROLOL 50MG AND ASA 325MG GIVEN IN ER WELL. PT REQUESTING SLEEP RX, HOWEVER, JODIE REPORTS THAT PT HAS BEEN SLEEPING WELL WITHOUT ANY DIFFICULTY IN THE ED. AWAITING PTS ARRIVAL, WILL CONTINUE PLAN OF CARE.
[2016-10-08 03:19] VITALS: BP 137/54; Ht 160 cm; Wt 62.5 kg
[2016-10-08] MEDS ORDERED: HYDROCODON-ACE1 EAC7 PO (03:19)
--- NOTE | 2016-10-08 03:42 | NUR ---
PT ARRIVED VIA WHEELCHAIR, AWAKE, ALERT, ORIENTED, C/O CHEST PAIN THAT RADIATES TO THE RIGHT CHEST AND SHOULDER. PT RATES IT A 5/10 ON NUMERIC PAIN SCALE, AND DESCRIBES IT STABBING. PT STATES SHE HAS LUPUS AND HAS A HX OF COPD, BUT IS IN NO ACUTE DISTRESS AT THIS TIME. PT IS VERY HUNGRY, SO I DID GIVE HER A TURKEY SANDWICH AND COFFEE, BUT WILL HOLD NPO AFTER. PT DENIES ANY OTHER NEEDS. CONTINUE TO MONITOR CLOSELY. I DEMONSTRATED TO PT HOW TO USE THE CALL LIGHT, AND WHEN TO CALL, AND PT VERBALLY AGREED TO DO SO. TELEMETRY PLACED SHOWING SINUS DUY. PT RESTING COMFORTABLY AT THIS TIME.
[2016-10-08 03:43] VITALS: BP 137/54
[2016-10-08 07:14] LABS: CKMB 0.9 U/L (0.0-3.6); CREATINE KINASE 32 UL (21-215)
[2016-10-08 07:23] LABS: TROPONIN-I < 0.017 ng/mL (0.000-0.060)
[2016-10-08 09:27] VITALS: BP 144/50
[2016-10-08 10:05] LABS: BASOPHILS 0.3 % (0-2); EOSINOPHILS 2.9 % (0-7); HEMATOCRIT 32.7 % (36.0-48.0); HEMOGLOBIN 10.8 g/dL (12-16); IMMATURE GRANULOCYTES 0.2 % (0-5); LYMPHOCYTES 33.2 % (15-50); MCH 30.9 pg (26.0-34.0); MEAN PLATELET VOLUME 10.2 fL (7.4-10.4); MONOCYTES 9.5 % (2-11); NEUTROPHILS 53.9 % (40-80); PLATELET COUNT 245 10x3/uL (130-400); RDW 17.6 % (11.5-14.5); WBC 5.8 10x3/uL (4.8-10.8)
[2016-10-08 10:09] LABS: MCV 93.4 fL (80.0-100.0)
--- NOTE | 2016-10-08 10:15 | NUR ---
PRE-OPS GIVEN. TO MATERIALS ASSISTANT BY BED.
--- NOTE | 2016-10-08 11:12 | NUR ---
BACK FROM AUTHORIZATION COORDINATOR. VS WNL. RIGHT GROIN STABLE WITHOUT BLEEDING OR HEMATOMA NOTED. WILL MONITOR.
[2016-10-08 12:53] LABS: CREATINE KINASE 31 UL (21-215); TROPONIN-I < 0.017 ng/mL (0.000-0.060)
--- NOTE | 2016-10-08 12:59 | NUR ---
BEDREST UP. GROIN STABLE.
[2016-10-08 13:12] LABS: ANION GAP 15.2 mmol/L (8-16); CALCIUM 8.6 mg/dL (8.5-10.1); CARBON DIOXIDE 23.8 mmol/L (21.0-32.0)
--- NOTE | 2016-10-08 14:31 | NUR ---
IV AND TELEMETRY DCD. DC PLANS GIVEN. UNDERSTANDING VOICED. ESCORTED TO CAR BY W/C.
== END 2016-10-08 14:32 | disposition home or self-care (01) ==
LOC: D.ER 22:38 → D.M2 10-08 01:23 → OBSVTIME 10-08 01:23 → D.M2 10-08 14:32
PROVIDERS: Emergency Medicine; ADMIT Internal Medicine Interventional Cardiology
DX: R07.89 Other chest pain (principal); I25.10 Atherosclerotic heart disease of native coronary artery without angina pectoris; Z95.5 Presence of coronary angioplasty implant and graft; I10 Essential (primary) hypertension; M32.9 Systemic lupus erythematosus, unspecified; K21.9 Gastro-esophageal reflux disease without esophagitis

== ENCOUNTER 2018-06-16 10:16 | Observation (INO) | payer MEDICARE, BC ==
[2018-06-16] VITALS (7 sets, daily range): BP systolic 98–196; BP diastolic 51–115
[~2018-06-16] VITALS: Ht 160 cm; Wt 64.4 kg
--- NOTE | ~2018-06-16 | HEMODYNAMI ---
PATIENT:DENAE HALLMAN MEDICAL RECORD: [id number] : 35 LOCATION:[place] [address] ADMISSION DATE: 06/16/18 Generatedon:06/17/20189:54 Patient name: DENAE HALLMAN Patient #: [id number] : 1935 Date of study: 06/17/2018 Page: Of Hemodynamic Procedure Report Patient Data Patient Demographics Procedure consent was obtained First Name: DENAE Gender: Female Last Name: LEXX : 1935 [facility] Initial: Diomedes Age: 82 year(s) Patient #: [id number] Race: SSN: [id number] Additional ID: [id number] Contact details [address]: [address] [place] [address] State: [place] City: [place] Zip code: [address] Past Medical History Allergies: No known allergies Admission Admission Data Admission Date: 06/16/2018 Admission Time: 12:38 Room #: [facility] Procedure Procedure Types Cath Procedure Diagnostic Procedure LHC LH w/Coronaries Sedation Charges Moderate Sedation up to 15 minutes PCI Procedure Coronary Stent Coronary Stent Initial x2 Peripheral Cath Diagnostic Procedure Design Drafter Chief Peripheral Procedures Bugpx-Dfsvwex-Bna-Off Procedure Description Procedure Date Procedure Date: 06/17/2018 Procedure Start Time: 9:31 Procedure End Time: 9:54 Procedure Staff Name Function Rodrick Moran MD Performing Physician Yu Goddard RT Monitor Abram Scott RN Nurse Vania Bobby RT Scrub Felicity Lei RT Scrub Procedure Data Cath Procedure Fluoroscopy Diagnostic fluoroscopy Total fluoroscopy Time: 5.4 time: 5.4 min min Diagnostic fluoroscopy Total fluoroscopy dose: 646 dose: 646 mGy mGy Contrast Material Contrast Material Type Amount (ml) Isovue 300 163 Entry Location Entry Primary Successful Side Size Upsize Upsize Entry Closure Succes sful Closure Location (Fr) 1 (Fr) 2 (Fr) Remarks Device Remarks Femoral Right 5 Fr 6 Fr Exoseal artery Short Estimated blood loss: 10 ml Diagnostic catheters Device Type Used For End Catheter Placement MULTIPACK Pigtail 5 Fr LV Angiography catheter MULTIPACK Pigtail 5 Fr Abdominal catheter aortogram with runoff MULTIPACK JL 4.0 5Fr Left Coronary catheter Angiography MULTIPACK 3DRC 5Fr Right Coronary catheter Angiography Procedure Complications No complications Procedure Medications Medication Administration Route Dosage Versed I.V. 1 mg Fentanyl I.V. 50 mcg Oxygen etCO2 Nasal cannula 2 l/min Lidocaine 2% added to field 20 Heparin Flush Bag added to field 2 bags (1000units/500ml NS) 0.9% NaCl I.V. 100 ml/hr Versed I.V. 1 mg Fentanyl I.V. 50 mcg Heparin Bolus I.V. 4000 units Integrilin (Bolus I.V. 5.6 ml 2mg/ml) Plavix P.O. 600 mg Hemodynamics Rest Heart Rate: 69 (bpm) Snapshots Pre Cath Intra NCS Post Cath Vital Signs Time Heart Resp SPO2 etCO2 NIBP (mmHg) Rhythm Pain Sedation Rate (ipm) (%) (mmHg) Status Level (bpm) 9:02:02 71 27 97 0 172/85(147) NSR 0 (11) 10(A) , No pain 9:06:29 64 23 98 21.9 165/76(131) NSR 0 (11) 10(A) , No pain 9:10:51 66 29 99 21.9 162/79(130) NSR 0 (11) 10(A) , No pain 9:15:15 68 17 100 24.9 160/75(120) NSR 0 (11) 10(A) , No pain 9:19:35 67 19 99 30.9 151/69(114) NSR 0 (11) 10(A) , No pain 9:23:53 66 19 98 29.5 142/70(117) NSR 0 (11) 10(A) , No pain 9:28:16 64 17 96 19.6 139/58(101) NSR 0 (11) 9(A) , No pain 9:32:35 65 14 97 28.7 132/64(101) NSR 0 (11) 9(A) , No pain 9:36:54 63 16 97 17.3 147/59(112) NSR 0 (11) 9(A) , No pain 9:41:14 65 15 97 37.7 137/59(101) NSR 0 (11) 9(A) , No pain 9:45:32 65 15 97 38.5 139/60(105) NSR 0 (11) 9(A) , No pain 9:49:46 64 17 99 27.2 158/71(115) NSR 0 (11) 10(A) , No pain 9:53:58 68 20 99 31 132/63(120) NSR 0 (11) 9(A) , No pain Medications Time Medication Route Dose Verified Delivered Reason Notes Effectiveness by by 9:04:43 Oxygen etCO2 2 Rodrick Valverde used for Nasal l/min Luisa Scott RN procedure cannula 9:05:51 Lidocaine 2% added 20ml Rodrickkarine Mensah for local to vial Luisa Moran MD anesthetic field 9:05:56 Heparin Flush added 2 Rodrick Rodrick used for Bag to bags Luisa Moran MD procedure (1000units/500ml field NS) 9:15:05 0.9% NaCl I.V. 100 Rodrick Valverde Per physician ml/hr Luisa Scott RN 9:23:32 Versed I.V. 1 mg Rodrick Valverde for sedation Luisa Scott RN 9:23:37 Fentanyl I.V. 50 Rodrick Valverde for sedation mcg Luisa Scott RN 9:34:28 Versed I.V. 1 mg Rodrick Valverde for sedation Luisa Scott RN 9:34:32 Fentanyl I.V. 50 Rodrick Valverde for sedation mcg Luisa Scott RN 9:37:50 Heparin Bolus I.V. 4000 Rodrick Valverde for verifi ed units Luisa Scott RN anticoagulation with dr moran 9:39:04 Integrilin I.V. 5.6 Rodrick Valverde for Wasted (Bolus 2mg/ml) ml Luisa Scott RN antiplatelet 4.4 ml therapy of vial 9:51:39 Plavix P.O. 600 Rodrick Valverde for mg Luisa Scott RN antiplatelet therapy Procedure Log Time Note 8:33:41 Time tracking: Regular hours (M-F 7:00 - 5:00) 8:33:48 Plan of Care:Hemodynamics will remain stable., Cardiac rhythm will remain stable., Comfort level will be maintained., Respiratory function will remain adequate., Patient/ family verbilizes understanding of procedure., Procedure tolerated without complication., Recovers from procedure without complications.. 8:59:35 Patient received from Med II to CCL 1 Alert and oriented. Tansferred to table in Supine position. 8:59:36 Warm blankets applied, and lizeth hugger turned on for patient comfort. 8:59:37 Correct patient and procedure confirmed by team. 8:59:38 Signed procedure consent form obtained from patient. 8:59:39 ECG and BP/O2 sat monitors applied to patient. 9:00:52 Vital chart was started 9:00:58 Rhythm: sinus rhythm 9:01:01 Full Disclosure recording started 9:01:09 H&P Date Dictated: 06/16/2018 Within 30 days and on chart.. 9:01:11 Pre-procedure instructions explained to patient. 9:01:11 Pre-op teaching completed and patient verbalized understanding. 9:01:15 Family unavailable. 9:01:19 Patient NPO since Midnight. 9:01:33 Is the patient allergic to Iodine/contrast media? No. 9:01:35 Is patient on blood thinner?No 9:01:36 Patient diabetic? No. 9:01:39 Previous problem with sedation/anesthesia? No ? 9:01:40 Snore? No 9:01:41 Sleep apnea? No 9:01:42 Deviated septum? No 9:01:43 Opens mouth fully? Yes 9:01:43 Sticks out tongue? Yes 9:01:45 Airway obstruction? No ? 9:01:59 Dentures? Yes IN 9:02:27 Pre procedure: right dorsailis pedis pulse 1+ Palpable, but thready & weak; easily obliterated 9:02:30 Patient pain scale 0/10 ?. 9:02:37 IV patent on arrival in right antecubital with 0.9% NaCl at O. 9:02:42 Lab results completed and on chart. 9:02:46 Bilateral groins area was prepped with chlora-prep and draped in sterile fashion 9:02:48 Alarms reviewed by R. N. 9:02:48 Sharps counted by scrub and verified by R.N. 9:04:43 Oxygen 2 l/min etCO2 Nasal cannula was administered by Abram Scott RN; used for procedure; 9:05:51 Lidocaine 2% 20ml vial added to field was administered by Rodrick Moran MD; for local anesthetic; 9:05:56 Heparin Flush Bag (1000units/500ml NS) 2 bags added to field was administered by Rodrick Moran MD; used for procedure; 9:08:07 Use device set Femoral Dx 9:08:14 SHEATH 5FR Cordis Inge(504-605X) NO COST SUPPLY opened to sterile field. 9:08:16 ACIST Syringe (09077) opened to sterile field. 9:08:17 Bag Decanter (2002S) opened to sterile field. 9:08:19 Medline Cath Pack ([id number]) opened to sterile field. 9:08:21 DIAGNOSTIC WIRE .035 260cm J wire (863547) opened to sterile field. 9:08:26 ACIST Hand Control (19108) opened to sterile field. 9:08:26 ACIST Manifold (58188) opened to sterile field. 9:08:29 DIAGNOSTIC Multipack 5Fr catheter set (DX8737) opened to sterile field. 9:08:30 Tegaderm 4 x 4 (1626W) opened to sterile field. 9:10:06 Baseline sample Acquired. 9:11:49 IV started by Abram Scott RN inleft forearm with a 22 gauge IV catheter with 0.9% NaCl at KVO. 9:15:05 0.9% NaCl 100 ml/hr I.V. was administered by Abram Scott RN; Per physician; 9:17:51 IV Extension Set opened to sterile field. 9:22:06 Final Timeout: patient, procedure, and site verified with staff and physician. All members of the team are in agreement. 9:22:08 Right groin site verified by team. 9:22:11 Fire Safety Assessment: A--An alcohol-based skin anteseptic being used preoperatively., C--Open oxygen or nitrous oxide is being used., D--An ESU, laser, or fiber-optic light is being used. 9:22:15 Physical assessment completed. ASA score P 2 - A patient with mild systemic disease as per Rodrick Moran MD. 9:22:18 Sedation plan: IV Moderate Sedation Medication:Versed, Fentanyl 9:23:20 Zero performed for pressure channel P1 9:23:32 Versed 1 mg I.V. was administered by Abram Scott RN; for sedation; 9:23:37 Fentanyl 50 mcg I.V. was administered by Abram Scott RN; for sedation; 9:31:50 Procedure started. 9:31:53 Local anesthetic to right femoral artery with Lidocaine 2% by Rodrick Moran MD.INITIAL ACCESS ONLY 9:32:29 A 5 Fr sheath was inserted into the Right Femoral artery 9:32:46 A MULTIPACK Pigtail 5 Fr catheter was advanced over the wire and used for LV Angiography. 9:32:58 LV gram done using DUNN 9:33:01 Injector settings: Ml/sec: 10, Volume: 20, 9:33:18 EF : 60 % 9:33:30 A MULTIPACK Pigtail 5 Fr catheter was advanced over the wire and used for Abdominal aortogram with runoff. 9:34:03 Catheter removed. 9:34:22 A MULTIPACK JL 4.0 5Fr catheter was advanced over the wire and used for Left Coronary Angiography. 9:34:28 Versed 1 mg I.V. was administered by Abram Scott RN; for sedation; 9:34:32 Fentanyl 50 mcg I.V. was administered by Abram Scott RN; for sedation; 9:36:15 Catheter removed. 9:36:20 Use device set TAU PCI 9:36:22 SHEATH 6FR [place] (KYO938) opened to sterile field. 9:36:26 INFLATOR Merit BasixCompak (EI8697) opened to sterile field. 9:36:30 CHOICE PT Extra Support 182cm wire ([id number]) opened to sterile field. 9:36:41 [place] IVUS Catheter (44417H) opened to sterile field. 9:37:18 Catheter removed. 9:37:24 A MULTIPACK 3DRC 5Fr catheter was advanced over the wire and used for Right Coronary Angiography. 9:37:50 Heparin Bolus 4000 units I.V. was administered by Abram Scott RN; for anticoagulation; verified with dr moran 9:38:24 Catheter removed. 9:38:28 GUIDE 6FR XBLAD 3.5 catheter ([id number]) opened to sterile field. 9:38:38 Sheath upsized to a 6 Fr Short. 9:39:04 Integrilin (Bolus 2mg/ml) 5.6 ml I.V. was administered by Abram Scott RN; for antiplatelet therapy; Wasted 4.4 ml of vial 9:39:15 6 Fr XBLAD 3.5 guide catheter was inserted over the wire 9:39:41 CHOICE PT ES wire advanced. 9:40:34 IVUS catheter advanced over wire. 9:41:17 IVUS pass to LAD lesion performed. 9:41:18 IVUS catheter removed over wire. 9:43:46 Place stent Inflation Number: 1 A MICHELA RX 2.5 x 08 stent ([id number]) was prepped and advanced across the Mid LAD. The stent was deployed at 17 YAQUELIN for 0:14 (min:sec). 9:44:25 Stent catheter was removed intact over wire. 9:44:27 Wire removed. 9:44:59 NEW CHOICE PT ES wire advanced. 9:45:08 CHOICE PT Extra Support 182cm wire ([id number]) opened to sterile field. 9:48:01 Place stent Inflation Number: 1 A MICHELA RX 2.0 x 8 stent ([id number]) was prepped and advanced across the 1st Ob Batsheva. The stent was deployed at 17 YAQUELIN for 0:12 (min:sec). 9:48:18 Stent catheter was removed intact over wire. 9:48:31 Wire removed. 9:48:32 Guide catheter removed. 9:48:39 Sheath removed intact; hemostasis achieved with Exoseal to the Right Femoral artery. 9:48:41 Procedure ended.(Physican Out) 9:49:02 EXOSEAL 6Fr (EX600) opened to sterile field. 9:49:09 Fluoroscopy time 05.40 minutes. 9:49:12 Flurop Dose total: 646 9:49:12 Fluoroscopy dose: 646 mGy 9:49:17 Contrast amount:Isovue 300 163ml. 9:49:18 Sharps counted by scrub and verified by R.N. 9:49:20 Insertion/operative site no bleeding no hematoma. 9:49:24 Post-op/insertion site Right Femoral artery dressed using a 4 x 4 and Tegaderm. 9:49:27 Post right femoral artery:stable, clean and dry 9:49:29 Post Procedure Pulses reassessed and unchanged 9:49:40 Post-procedure physical assessment completed. ASA score P 2 - A patient with mild systemic disease as per Rodrick Moran MD. 9:49:42 Post procedure rhythm: unchanged. 9:49:46 Estimated blood loss: 10 ml 9:49:48 Post procedure instruction explained to patient.Patient verbalizes understanding. 9:49:51 Patient needs reinforcement of post procedure teaching. 9:51:30 Procedure type changed to Cath procedure, Diagnostic procedure, LHC, LHC w/Coronaries, Sedation Charges, Moderate Sedation up to 15 minutes, PCI procedure, Coronary Stent, Coronary Stent Initial x2, Peripheral Cath Diagnostic Procedure, Design Drafter Chief Peripheral Procedures, Ybxxo-Zuaqkwe-Jea-Off 9:51:39 Plavix 600 mg P.O. was administered by Abram Scott RN; for antiplatelet therapy; 9:53:32 Procedure Complication : No complications 9:53:35 See physician's report for complete and final results. 9:53:35 Procedure and supply charges have been captured, reviewed, submitted and are correct. 9:53:42 Report given to PCU. 9:53:46 Patient transfered to PCU with Bed. 9:54:28 Vital chart was stopped 9:54:30 Procedure ended. 9:54:30 Full Disclosure recording stopped 9:54:34 End room use (Document Last) Intervention Summary Intervention Notes Time ActionType Lesion and Equipment Used Action# Pressure Duration Attributes 9:43:46 Place stent Mid LAD MICHELA RX 2.5 x 1 17 00:14 08 stent ([id number]) 9:48:01 Place stent 1st Ob Batsheva MICHELA RX 2.0 x 1 17 00:12 8 stent ([id number]) Device Usage Item Name Manufacture Quantity Catalog Number Hospital Part Current Minimal Lot# / Charge Number Stock Stock Serial# Code SHEATH 5FR Cardinal 1 [id number] 5 X BODY Inge(504-605X) NO COST SUPPLY ACIST Syringe Acist 1 45856 704874 631632 983361 20 (67062) [employer] Inc Bag Decanter Microtek 1 078907 90821 812909 5 () Medical Inc. Medline Cath Medline 1 [id number] 892148 93160 810071 5 Pack ([id number]) DIAGNOSTIC WIRE St Erasmo 1 876922 852593 737128 565698 30 .035 260cm J wire (931643) ACIST Hand Acist 1 58156 472520 984135 429821 5 Control (94410) Medical Systems Inc ACIST Manifold Acist 1 06893 698969 554839 405479 5 (91204) Medical Systems Inc DIAGNOSTIC Cardinal 1 AZ7116 003400 29930 384639 30 Multipack 5Fr Health catheter set (TI3764) Tegaderm 4 x 4 3M 1 1626W 492767 732107 690460 5 (1626W) IV Extension Set Hospira 1 76047-35 576411 23808 771277 5 MULTIPACK Cardinal 1 055375 5 Pigtail 5 Fr Health catheter MULTIPACK JL 4.0 Cardinal 1 159939 5 5Fr catheter Health SHEATH 6FR Terumo 1 VGK724 179373 897541 805454 40 [place] (JZY320) INFLATOR Merit Merit 1 LV5768 545702 213559 147664 15 Collective Digital StudioBear [facility] HospitalGet Together (OP0231) CHOICE PT Extra [place] 2 [id number] 021324 570072 093376 5 Support 182cm Scientific wire ([id number]) Capay [place] Capay 1 33601F 012870 892835 282561 8 [place] IVUS Catheter (59207W) MULTIPACK 3DRC Cardinal 1 351216 5 5Fr catheter Health GUIDE 6FR XBLAD Cardinal 1 [id number] 417682 619457 179702 10 3.5 catheter Health (63914063) MICHELA RX 2.5 x 08 Medtronic 1 [id number] 612184 3210781 839501 5 [id number] stent ([id number]) MICHELA RX 2.0 x 8 Medtronic 1 [id number] 914786 0815229 765006 5 [id number] stent ([id number]) EXOSEAL 6Fr Cardinal 1 EX600 669572 131991 439749 10 (EX600) Health Signature Audit [place] Stage Time Signature Unsigned Intra-Procedure 06/17/2018 Yu 9:54:56 AM Counts RT(R) Signatures Monitor : Yu Signature : Counts RT Date : Time : [facility] [address] [place] [address]
[~2018-06-16 10:16] MED LIST changes: +HYDROCODON-ACE1 EAC7 PO
[2018-06-16] MEDS ORDERED: NORMODYNE / TR100 MG PO (10:27)
[2018-06-16 11:26] LABS: BASOPHILS 0.4 % (0-2); EOSINOPHILS 3.3 % (0-7); HEMATOCRIT 36.1 % (36.0-48.0); HEMOGLOBIN 11.9 g/dL (12-16); IMMATURE GRANULOCYTES 0.9 % (0-5); LYMPHOCYTES 32.2 % (15-50); MCH 32.6 pg (26.0-34.0); MCV 98.9 fL (80.0-100.0); MEAN PLATELET VOLUME 9.8 fL (7.4-10.4); MONOCYTES 8.6 % (2-11); NEUTROPHILS 54.6 % (40-80); PLATELET COUNT 252 10x3/uL (130-400); RBC 3.65 10x6/uL (4.00-5.40); RDW 18.3 % (11.5-14.5); WBC 7.9 10x3/uL (4.8-10.8)
[2018-06-16 11:40] LABS: ALBUMIN 3.3 g/dL (3.4-5.0); ALKALINE PHOSPHATASE 63 U/L (46-116); ALT (SGPT) 12 U/L (10-68); CALC OSMOLALITY 285 mosm/kg (275-300); CALCIUM 8.6 mg/dL (8.5-10.1); CHLORIDE - SERUM 104 mmol/L (98-107); GLUCOSE 101 mg/dL (74-106); POTASSIUM - SERUM 4.1 mmol/L (3.5-5.1); PROTEIN - SERUM 7.1 g/dL (6.4-8.2); SODIUM 142 mmol/L (136-145); UREA NITROGEN 20 mg/dL (7-18); eGFR NON AFRICAN AMERICAN 56 mL/min (90-120)
[2018-06-16 11:56] LABS: CKMB 1.2 U/L (0.0-3.6); CREATINE KINASE 28 UL (21-215)
[2018-06-16 11:58] LABS: TROPONIN-I < 0.017 ng/mL (0.000-0.060)
--- NOTE | 2018-06-16 12:36 | NUR ---
PT TRANSPORTED VIA STRETCHER TO CT.
--- NOTE | 2018-06-16 13:00 | NUR ---
PT RETURNED FROM CT.
--- NOTE | 2018-06-16 18:34 | NUR ---
TRANSFERED FROM ER BY W/Abi ORNELAS TO ROOM. CALL LIGHT IN REACH. WILL CONT. PLAN OF CARE.
--- NOTE | 2018-06-16 21:18 | NUR ---
PT A/O X 4. UP AB PATRICIO. STATES CRAMPING IN LOWER LEGS DUE TO NEUROPATHY. VITALS STABLE, MEDS TAKEN WITHOUT DIFFICULTY. R FOREARM IV WITH NS @ KVO. ROOM AIR. NORMAL SINUS ON TELE. PT INFORMED TO BE NOTHING TO EAT OR DRINK AFTER MIDNIGHT FOR HEART CATH IN THE MORNING. PT AGREED. CONSENTS SIGNED AND ON THE CHART. NO FURTHER CONCERNS AT THIS TIME. BED LOWERED AND LOCKED. CL IN REACH. WILL CPOC.
[2018-06-17] VITALS: BP 125/50
--- NOTE | 2018-06-17 00:35 | NUR ---
PT C/O NOT BEING ABLE TO SLEEP AT ALL. ANDERS GIVEN.
[2018-06-17 02:36] VITALS: BP 152/60; BMI 28.4
--- NOTE | 2018-06-17 03:33 | NUR ---
RN NOTE: PATIENT IS RESTING COMFORTABLY IN BED. RESPIRATIONS ARE EVEN AND UNLABORED. NO S/S OF DISTRESS. CALL LIGHT WITHIN REACH. WILL CPOC.
--- NOTE | 2018-06-17 04:09 | NUR ---
PT LAYING IN BED SLEEPING. BREATHING EVEN AND UNLABORED. BED LOWERED AND LOCKED. CL IN REACH. SR UP X 2. WILL CPOC.
[2018-06-17 05:20] VITALS: BP 122/50
[2018-06-17 07:48] VITALS: BP 119/52
--- NOTE | 2018-06-17 08:53 | NUR ---
PRE-OPS GIVEN. LEAVING FOR SUPERVISOR [employer] BY BED.
--- NOTE | 2018-06-17 10:18 | NUR ---
BACK FROM BORING MILL OPERATOR FOR METAL. RIGHT GROIN STABLE WITHOUT BLEEDING OR HEMATOMA NOTED. WILL MONITOR.
--- NOTE | 2018-06-17 11:20 | HP ---
PATIENT: DENAE HALLMAN MEDICAL RECORD: [id number] ACCOUNT: [id number] LOCATION:[address] : 35 ADMISSION DATE: 06/16/18 PCP: OLIVIA HAMMOND MD HISTORY AND PHYSICAL EXAMINATION DIAGNOSES: 1. Angina. 2. Claudication. 3. Coronary artery disease. 4. Peripheral vascular disease. 5. Uncontrolled hypertension. 6. Shortness of breath, dyspnea on exertion. HISTORY OF PRESENT ILLNESS: Mrs. Hallman has a history of coronary artery disease, previous cardiac stenting, who has been having episodes of chest pain, chest discomfort compatible with angina as well as markedly uncontrolled hypertension and bradycardia secondary to her labetalol. With this, she has been short of breath, weak, and dizzy as well as her arms feeling a tingling sensation due to the bradycardia. PHYSICAL EXAMINATION: GENERAL APPEARANCE: Well-nourished, well-developed, appears stated age. Level of distress, comfortable. PSYCHIATRIC: Mental status, alert, normal affect. Orientation, oriented to time, place and person. EYES: Lids and conjunctiva, noninjected. No discharge, no pallor. ENT: Lips, teeth, gums, normal dentition. Oropharynx, no cyanosis, no pallor. NECK: Carotid arteries, bilateral normal upstroke, no bruits, no thrills. JUGULAR VEINS: No jugular venous pressure or distention. CERVICAL LYMPH NODES: Nontender, nonenlarged. THYROID: Not enlarged. Nontender. No nodules. LUNGS: Respiratory effort, unlabored. CHEST: Normal curvature. No thoracic deformity. No chest wall tenderness. Percussion, resonant. Auscultation, clear. No wheezes, no rales, no rhonchi. CARDIOVASCULAR: Precordial exam, nondisplaced. No heaves or pericardial thrills. Rate and rhythm, regular. Heart sounds, normal S1, normal S2. No S3, no gallop, no rub. Systolic murmur, not heard. Diastolic murmur, not heard. EXTREMITIES: No cyanosis, no edema. Peripheral pulses, full and equal in all extremities, except as noted. No bruits appreciated. ABDOMEN: Soft, nondistended. Normal aorta. No bruit. Nontender. No masses. Liver, nontender, no hepatomegaly. Spleen, nontender, no splenomegaly. MUSCULOSKELETAL: No joint tenderness. No joint swelling. No erythema. NEUROLOGICAL: Normal gait, normal strength, normal tone. SKIN: Warm and dry. OVERALL IMPRESSION: Out of control hypertension. At this time, we will discontinue the labetalol, put her on lisinopril HCT and Norvasc. Hopefully, this will do a better job controlling her blood pressure without the bradycardia. We will proceed with coronary angiography and lower extremity angiography in the a.m. TRANSINT:[id number] Voice Confirmation ID: [id number] DOCUMENT ID: [id number] HISTORY AND PHYSICAL [id number] DENAE HALLMAN JEFFREY MD at 1120 CC: [id number] DICTATION DATE: 06/16/18 1212 POCKET FLAP CREASING MACHINE OPERATOR: 06/16/18 1220 ADM IN [place] [id number]
--- NOTE | 2018-06-17 11:20 | OP ---
PATIENT NAME: DENAE HALLMAN MEDICAL RECORD: [id number] :35 LOCATION:[address] ADMISSION DATE:06/16/18 SURGEON: AMY OSBORNE MD DATE OF OPERATION: 06/17/2018 DATE OF SERVICE: 06/17/2018 PROCEDURES: 1. PTCA stent LAD. 2. PTCA stent left circumflex. 3. Intravascular ultrasound. 4. Left heart catheterization. 5. Selective coronary angiography. 6. Left ventriculogram. INDICATION: Unstable angina and coronary artery disease. DESCRIPTION OF PROCEDURE: After informed consent was obtained and after detailed description of risks, benefits as well as alternative therapies, the patient elected to proceed with angiogram and angioplasty. The right femoral area was prepped and draped in normal sterile fashion. Right femoral artery was cannulated via modified Seldinger technique with placement of 6-Sinhala sheath. All catheters exchanged through this sheath. FINDINGS: The left ventriculogram was performed in standard 30-degree DUNN view, reveals good cardiac wall motion throughout all segments. Overall ejection fraction estimated at 60%. SELECTIVE CORONARY ANGIOGRAPHY: 1. Left main has no significant angiographic disease. 2. Left anterior descending has previously placed stents. There is 80% in-stent restenosis confirmed by intravascular ultrasound. 3. The left circumflex has 90% stenosis at the first obtuse marginal. 4. The right coronary has moderate irregularities, but no flow-limiting stenosis. PTCA STENT OF THE LAD: The stent used was a 2.5 x 8-mm [place]. Result was 0% residual stenosis throughout. PTCA STENT OF THE CIRCUMFLEX OF FIRST OBTUSE MARGINAL: The stent used was a 2.0 x 8-mm [place] taken to 17 atmospheres. Result was 0% residual stenosis. OVERALL IMPRESSION: Successful percutaneous transluminal coronary angioplasty stent of the left anterior descending and circumflex going from 80% to 90% initial stenosis to 0% residual. TRANSINT:[id number] Voice Confirmation ID: [id number] DOCUMENT ID: [id number] OPERATIVE REPORT [id number] DENAE HALLMAN AMY OSBORNE MD at 1120 CC: [id number] DICTATION DATE: 06/17/18 0957 DIE CUTTER: 06/17/18 1054 [place] [address]
[2018-06-17 12:43] VITALS: Ht 160 cm; Wt 64.4 kg
[2018-06-17] MEDS ORDERED: PLAVIX75 MG PO (13:50)
[2018-06-17] MEDS ORDERED: NORVASC5 MG PO (13:52)
[2018-06-17] MEDS ORDERED: LISINOPRIL-HCT1 EAC8 PO (13:52)
[2018-06-17] MEDS ORDERED: ASPIRIN81 MG PO (13:52)
--- NOTE | 2018-06-17 14:08 | NUR ---
BED REST UP. GROIN STABLE.
--- NOTE | 2018-06-17 14:30 | NUR ---
IV AND TELEMETRY DCD. DC PLANS GIVEN. UNDERSTANDING VOICED.
--- NOTE | 2018-06-17 14:42 | NUR ---
ESCORTED TO CAR BY W/C.
--- NOTE | 2018-06-18 08:35 | MORECARE ---
CASE MANAGEMENT DISCHARGE SUMMARY PATIENT: DENAE HALLMAN UNIT: [id number] ADM DATE: 06/16/18 AGE: 82 : 35 SEX: F ROOM/BED: D.719 AUTHOR: KRYS CAMPOS PHYSICIAN: REFERRING PHYSICIAN: AMY OSBORNE MD DATE OF SERVICE: 06/18/18 Discharge Plan Patient Name: DENAE HALLMAN Facility: [facility]:[place] : 1935 Planned Disposition: Home Anticipated Discharge Date: 06/17/18 Discharge Date: 06/17/2018 Expected LOS: 1 Initial Reviewer: [id number] Initial Review Date: 06/18/2018 Generated: 06/18/18 9:35 am Patient Name: DENAE HALLMAN Page [id number] at 0835 All edits/amendments must be made on the electronic document DICTATION DATE: 06/18/18833 FLAG DECORATOR: MIGUEL 06/18/1834 RPT#: [id number] DC DATE:06/17/18 STATUS: DIS IN [facility] [address] [place] [address] END OF REPORT
--- NOTE | 2018-06-22 11:45 | EC ---
PATIENT:DENAE HALLMAN DATE OF SERVICE: 06/16/18 SEX: F MEDICAL RECORD: [id number] DATE OF : 35 LOCATION:D.M2 D.211 AGE OF PATIENT: 82 ADMISSION DATE: 06/16/18 REFERRING PHYSICIAN: INTERPRETING PHYSICIAN: AMY MORAN MD ECHOCARDIOGRAM REPORT ECHO CHARGES 4 ECHO COMPLETE Date: 06/16/18 CLINICAL DIAGNOSIS: SOB HX CAD STENTS ECHOCARDIOGRAPHIC MEASUREMENTS (adult normal given) AC root (d.<3.7cm) 2.4 cm LV Septum d (<1.2 cm> 1.5 cm Valve Excursion 1.2 cm LV Septum (systole) 1.7 cm Left Atria (s.<4.0cm> 3.3 cm LVPW d(<1.2cm) 1.5 cm RV (d.<2.3cm) 3.9 cm LVPW (sytole) 1.6 cm LV diastole(<5.6CM) 5.4 cm MV E-F(>70mm/sec) cm LV systole 3.9 cm LVOT Diameter 1.7 cm MV exc.(>10mm) 1.5 cm Est.ejection fraction (50-75%) % DOPPLER: LVIT cm/sec A 108 cm/sec E 75.0 cm/sec LA cm/sec RVSP 41 mmHg LVOT 112 cm/sec AOP1/2T m/s Asc. Ao 171 cm/sec RVOT 82 cm/sec RA cm/sec PA 115 cm/sec AV Gradient Peak 11.75mmHg AV Mean 6.08 mmHg AV Area 1.5 cm MV Gradient Peak 6.98 mmHg MV Mean 2.00 mmHg MV Area cm COMMENTS: Sponsorship Manager: Candida ESPINOSA Preschool Lead Teacher: 1 Dr. Moran TAPE# PACS Pericardial Effusion N DATE OF SERVICE: 06/17/2018 FINDINGS: 1. Left ventricular chamber size is within normal limits. Left ventricular systolic function is normal. Overall ejection fraction is estimated at 55%. 2. Left atrium is within normal limits at 3.3 cm. Right atrium and right ventricle chamber sizes are mildly dilated. 3. Valvular structures have normal structure and motion. 4. Doppler interrogation reveals mild mitral regurgitation and mild tricuspid regurgitation. No other valvular insufficiency or stenosis. Pulmonary systolic ECHOCARDIOGRAM REPORT [id number] DENAE HALLMAN pressure is estimated at 41 mmHg. 5. No evidence of pericardial effusion or left ventricular thrombus. TRANSINT:[id number] Voice Confirmation ID: [id number] DOCUMENT ID: [id number] AMY MORAN MD at 1145 CC: [id number] DICTATION DATE: 06/17/18 1609 FORENSIC SCIENTIST: 06/17/18 1718 DIS IN 06/17/18 [place] [id number] [place] [id number]
--- NOTE | 2018-06-22 11:45 | DS ---
PATIENT:DENAE HALLMAN :35 MEDICAL RECORD: [id number] DISCHARGE SUMMARY ADMISSION DATE: 06/16/18 DISCHARGE DATE: 06/17/18 DATE OF SERVICE: 06/17/2018 DIAGNOSES: 1. Angina. 2. Coronary artery disease. 3. Hypertension. 4. Bradycardia. HOSPITAL COURSE: Mrs. Hallman presents with bradycardia from her labetalol along with anginal symptomatology. The labetalol was discontinued. She was placed on lisinopril HCT and Norvasc for blood pressure control. She had no further bradycardia. She underwent cardiac catheterization, revealing disease of the LAD and the circumflex. She underwent successful PTCA and stent of these vessels. She was discharged as well on Plavix. She will follow up with [facility] in one month. TRANSINT:[id number] Voice Confirmation ID: [id number] DOCUMENT ID: [id number] AMY OSBORNE MD at 1145 CC: [id number] DICTATION DATE: 06/17/18 0955 SOCIAL SCIENCES LECTURER: 06/17/181914 DIS IN 06/17/18 [facility] [address] [place] [address]
== END 2018-06-17 14:43 | disposition home or self-care (01) ==
LOC: D.ER 10:16 → D.EDHOLD 12:38 → OBSVTIME 12:38 → D.M2 18:02
PROVIDERS: Family Medicine; ADMIT Internal Medicine Interventional Cardiology
DX: I25.110 Atherosclerotic heart disease of native coronary artery with unstable angina pectoris (principal); I10 Essential (primary) hypertension; R00.1 Bradycardia, unspecified; I80.8 Phlebitis and thrombophlebitis of other sites; R20.2 Paresthesia of skin; I73.9 Peripheral vascular disease, unspecified; R42 Dizziness and giddiness
CPT/HCPCS: 93458; 92978; C9600 ×2

== ENCOUNTER 2019-03-02 12:37 | Outpatient (CLI) | payer MEDICARE, BC ==
[~2019-03-02] VITALS: Ht 160 cm; Wt 59.4 kg
--- NOTE | ~2019-03-02 | HEMODYNAMI ---
PATIENT:DENAE HALLMAN MEDICAL RECORD: [id number] : 35 [id number] ADMISSION DATE: 03/02/19 Generatedon:03/09/201914:28 Patient name: DENAE HALLMAN Patient #: [id number] : 1935 Date of study: 03/03/2019 Page: Of Hemodynamic Procedure Report Patient Data Patient Demographics Procedure consent was obtained First Name: DENAE Gender: Female Last Name: LEXX : 1935 [facility] Initial: J Age: 83 year(s) Patient #: [id number] Race: SSN: [id number] Additional ID: [id number] Contact details [address]: [address] [place] [address] State: [place] City: [place] Zip code: [address] Past Medical History Allergies: No known allergies Admission Admission Data Admission Date: 03/02/2019 Admission Time: 12:37 Arrival Date: 03/03/2019 Arrival Time: 0:00 Admit Source: Other Insurance Payor: Medicare Room #: D.2121 [facility] #: [id number] Height (in.): 62.99 BSA: 1.61 (m2) Height (cm.): 160 BMI: 23.05 (kg/m2) Weight (lbs.): 130.07 Weight (kg.): 59 Lab Results Lab Result Date: 03/03/2019 Lab Result Time: 0:00 Biochemistry Name Units Result Min Max BUN mg/dl 23 --(----)-* 7 18 CK-MB ng/ml 0.5 --(*---)-- 0 3.6 Creatinine mg/dl 1 --(--*-)-- 0.6 1.3 eGFR ml/min 56 *-(----)-- 90 120 NONAFRICAN Troponin l ng/ml 0.017 --(-*--)-- 0 0.06 CBC Name Units Result Min Max Hemoglobin g/dl 10.8 *-(----)-- 13.5 17.5 Procedure Procedure Types Cath Procedure Diagnostic Procedure [facility] w/Coronaries FFR/IVUS FFR Initial PCI Procedure Coronary Stent Coronary Stent Initial Procedure Description Procedure Date Procedure Date: 03/03/2019 Procedure Start Time: 9:17 Procedure End Time: 9:37 Procedure Staff Name Function Abram Scott RN Nurse Rodrick Moran MD Performing Physician Janet Gann RT Monitor Finesse Watkins RN Nurse Mitzi Goode RT Monitor Marsha Au RT Scrub Indication Unstable angina Procedure Data Cath Procedure Fluoroscopy Diagnostic fluoroscopy Total fluoroscopy Time: 3.3 time: 3.3 min min Diagnostic fluoroscopy Total fluoroscopy dose: 285 dose: 285 mGy mGy Contrast Material Contrast Material Type Amount (ml) Isovue 300 85 Entry Location Entry Primary Successful Side Size Upsize Upsize Entry Closure Succes sful Closure Location (Fr) 1 (Fr) 2 (Fr) Remarks Device Remarks Femoral Right 5 Fr 6 Fr Exoseal artery Short Estimated blood loss: 10 ml Diagnostic catheters Device Type Used For End Catheter Placement MULTIPACK Pigtail 5 Fr LV Angiography catheter MULTIPACK JL 4.0 5Fr Left Coronary catheter Angiography MULTIPACK 3DRC 5Fr Right Coronary catheter Angiography Procedure Complications No complications Procedure Medications Medication Administration Route Dosage 0.9% NaCl I.V. 100 ml/hr Oxygen etCO2 Nasal cannula 2 l/min Heparin Flush Bag added to field 2 bags (1000units/500ml NS) Lidocaine 2% added to field 20 Versed I.V. 1 mg Fentanyl I.V. 50 mcg Heparin Bolus I.V. 4000 units Hemodynamics Rest BSA: 1.61 (m2) HGB: 10.8 (g/dl) O2 Consumption: Estimated: 151.1 (ml/min) O2 Con sumption indexed: Estimated:93.85 (ml/min/m) Heart Rate: 82 (bpm) Snapshots Pre Cath Intra NCS Post Cath Vital Signs Time Heart Resp SPO2 etCO2 NIBP (mmHg) Rhythm Pain Sedation Rate (ipm) (%) (mmHg) Status Level (bpm) 8:57:40 86 20 96 0 137/72(103) NSR 0 (11) 10(A) , No pain 9:02:00 83 20 94 0 146/63(106) NSR 0 (11) 10(A) , No pain 9:06:22 79 18 98 23.9 128/65(107) NSR 0 (11) 10(A) , No pain 9:10:38 78 17 98 3.7 116/49(84) NSR 0 (11) 10(A) , No pain 9:14:52 76 18 99 0 114/55(82) NSR 0 (11) 10(A) , No pain 9:19:57 75 19 98 25.4 131/58(95) NSR 0 (11) 10(A) , No pain 9:24:15 73 17 98 12.7 128/58(89) NSR 0 (11) 9(A) , No pain 9:28:35 72 17 98 0 115/52(79) NSR 0 (11) 9(A) , No pain 9:32:51 71 17 98 0 117/47(87) NSR 0 (11) 9(A) , No pain 9:37:05 76 18 99 0 110/54(82) NSR 0 (11) 9(A) , No pain Medications Time Medication Route Dose Verified Delivered Reason Notes Effectiveness by by 9:08:34 0.9% NaCl I.V. 100 Finesse Finesse Per physician ml/hr June Watkins RN RN 9:08:46 Oxygen etCO2 2 Finesse Finesse for low 02 sats Nasal l/min June Watkins cannula RN RN 9:08:57 Heparin Flush added 2 Finesse Finesse used for Bag to bags June Watkins procedure (1000units/500ml RN RN NS) 9:09:08 Lidocaine 2% added 20ml Finesse Finesse for local to vial June Watkins anesthetic RN RN 9:18:30 Versed I.V. 1 mg Finesse Finesse for sedation June Watkins RN RN 9:18:39 Fentanyl I.V. 50 Finesse Finesse for sedation mcg June Watkins RN RN 9:27:46 Heparin Bolus I.V. 4000 Finesse Finesse for units June Watkins anticoagulation RN navy fighter pilot Log Time Note 8:36:29 Informed consent obtained and on chart 8:36:39 Diagnostic Cath Status : Urgent 8:37:24 Indication : Unstable angina 8:37:49 Procedure Status Urgent Heart Cath (IP). 8:37:55 Abram Scott RN sent for patient. Start room use. 8:37:58 Time tracking: Regular hours (M-F 7:00 - 5:00) 8:38:11 Plan of Care:Hemodynamics will remain stable., Cardiac rhythm will remain stable., Comfort level will be maintained., Respiratory function will remain adequate., Patient/ family verbilizes understanding of procedure., Procedure tolerated without complication., Recovers from procedure without complications.. 8:40:31 Lab Result : Troponin l 0.017 ng/ml 8:40:31 Lab Result : eGFR NONAFRICAN 56 ml/min 8:40:31 Lab Result : Hemoglobin 10.8 g/dl 8:40:31 Lab Result : BUN 23 mg/dl 8:40:31 Lab Result : Creatinine 1 mg/dl 8:40:31 Lab Result : CK-MB 0.5 ng/ml 8:45:18 Arrival Date: 03/03/2019 12:00:00 AM 8:45:22 Admit Source: Other 8:45:29 Patient Height : 62.99 inches 8:45:35 Patient Weight : 130.07 lbs 8:46:12 Insurance Payor : Medicare 8:49:46 Risk of Mortality: 3.0 8:49:52 Risk of blood transfusion: 8.9 8:49:57 Risk of ALEN: 10.0 8:51:12 Patient received from Med II to CCL 1 Alert and oriented. Tansferred to table in Supine position. 8:51:21 Warm blankets applied, and lizeth hugger turned on for patient comfort. 8:51:22 Correct patient and procedure confirmed by team. 8:51:39 H&P Date Dictated: 03/03/2019 Within 30 days and on chart.. 8:51:42 Pre-procedure instructions explained to patient. 8:51:43 Pre-op teaching completed and patient verbalized understanding. 8:55:10 ACC Patient presents with Unstable Angina CCS Anginal Class 4--Inability to carry out any physical activity w/o angina. Angina may occur at rest. 8:55:19 ACCPatient has been prescribed/administered the following anti-anginal medication within the last 2 weeks: None 8:56:29 ECG and BP/O2 sat monitors applied to patient. 8:56:30 Vital chart was started 8:56:31 Baseline sample Acquired. 8:56:36 Rhythm: sinus rhythm 8:56:39 Full Disclosure recording started 8:56:50 Family unavailable. 8:56:52 Patient NPO since Midnight. 8:57:04 Patient allergic to No known allergies 8:57:13 Is the patient allergic to Iodine/contrast media? No. 8:57:16 Was the patient premedicated? Yes 8:57:31 Is patient on blood thinner?No 8:57:36 Patient diabetic? No. 8:57:40 Patient not . Patient is over age 55. 8:57:42 8:57:43 ----Pre-sedation anethsthesia assessment.---- 8:57:51 Previous problem with sedation/anesthesia? No ? 8:57:54 Snore? Yes 8:57:57 Sleep apnea? No 8:57:59 Deviated septum? No 8:58:01 Opens mouth fully? Yes 8:58:03 Sticks out tongue? Yes 8:58:10 Airway obstruction? Yes copd 8:58:20 Dentures? Yes in tight 8:58:27 Pre procedure: right dorsailis pedis pulse 2+ Normal; easily identifiable; not easily obliterated 8:58:45 Patient pain scale 0/10 ?. 8:58:52 IV patent on arrival in left hand with 0.9% NaCl at O. 8:58:58 Lab results completed and on chart. 8:59:09 Right groin area was prepped with chlora-prep and draped in sterile fashion 8:59:11 Alarms reviewed by R. N. 8:59:12 Sharps counted by scrub and verified by R.N. 9:00:25 Use device set Femoral Dx 9:00:27 ACIST Syringe (46143) opened to sterile field. 9:00:28 Bag Decanter (2002S) opened to sterile field. 9:00:29 Medline Cath Pack ([id number]) opened to sterile field. 9:00:31 ACIST Hand Control (16440) opened to sterile field. 9:00:32 ACIST Manifold (19511) opened to sterile field. 9:00:33 DIAGNOSTIC Multipack 5Fr catheter set (SO9361) opened to sterile field. 9:00:34 Tegaderm 4 x 4 (1626W) opened to sterile field. 9:00:37 SHEATH 5FR [employer] (HCO388) opened to sterile field. 9:00:38 EMERALD Guide Wire (842-073) opened to sterile field. 9:08:34 0.9% NaCl 100 ml/hr I.V. was administered by Finesse Watkins RN; Per physician; Verbal order read back and verified. 9:08:46 Oxygen 2 l/min etCO2 Nasal cannula was administered by Finesse Watkins RN; for low 02 sats; Verbal order read back and verified. 9:08:57 Heparin Flush Bag (1000units/500ml NS) 2 bags added to field was administered by Finesse Watkins RN; used for procedure; Verbal order read back and verified. 9:09:08 Lidocaine 2% 20ml vial added to field was administered by Finesse Watkins RN; for local anesthetic; Verbal order read back and verified. 9:10:18 Zero performed for pressure channel P1 9:10:50 Stress Test: no; N/A ? 9:14:11 Final Timeout: patient, procedure, and site verified with staff and physician. All members of the team are in agreement. 9:14:11 --------ALL STOP TIME OUT------ 9:14:13 Right groin site verified by team. 9:14:16 Fire Safety Assessment: A--An alcohol-based skin anteseptic being used preoperatively., C--Open oxygen or nitrous oxide is being used., D--An ESU, laser, or fiber-optic light is being used. 9:14:19 Physical assessment completed. ASA score P 3 - A patient with severe systemic disease as per Rodrick Moran MD. 9:14:25 3a) 45-59 Moderately reduced kidney function. 9:14:28 Maximum allowable contrast dose (3.7 X eGFR X 0.75)155 ml. 9:14:32 Sedation plan: IV Moderate Sedation Medication:Versed, Fentanyl 9:17:00 Procedure started. 9:17:24 Local anesthetic to right femoral artery with Lidocaine 2% by Rodrick Moran MD.INITIAL ACCESS ONLY 9:18:10 A 5 Fr sheath was inserted into the Right Femoral artery 9:18:30 Versed 1 mg I.V. was administered by Finesse Watkins RN; for sedation; Verbal order read back and verified. 9:18:39 Fentanyl 50 mcg I.V. was administered by Finesse Watkins RN; for sedation; Verbal order read back and verified. 9:18:44 A MULTIPACK Pigtail 5 Fr catheter was advanced over the wire and used for LV Angiography. 9:18:48 LV gram done using DUNN 9:19:13 EF : 55 % 9:19:20 Injector settings: Ml/sec: 10, Volume: 20, 9:19:37 Catheter removed. 9::44 A MULTIPACK JL 4.0 5Fr catheter was advanced over the wire and used for Left Coronary Angiography. 9:20:10 LCA angiography performed. 9:21:13 Catheter removed. 9:21:30 A MULTIPACK 3DRC 5Fr catheter was advanced over the wire and used for Right Coronary Angiography. 9:22:00 RCA angiography performed. 9:22:05 Catheter removed. 9:22:08 SHEATH 6FR [employer] (NAI346) opened to sterile field. 9:22:09 Dovray Verrata Plus pressure wire (07470W) opened to sterile field. 9:22:31 GUIDE 6FR XBLAD 3.5 catheter ([id number]) opened to sterile field. 9:22:32 INFLATOR Merit BasixCompak (RS2883) opened to sterile field. 9:22:52 Sheath upsized to a 6 Fr Short. 9:23:12 6 Fr xblad3.5 guide catheter was inserted over the wire 9:23:39 FFR/IFR wire advanced. 9:25:32 mCirc lesion measured at 0.97 with IFR 9:25:55 wire redirected to lad. 9:26:09 mLAD lesion measured at 0.82 with IFR 9:26:39 Pre PCI Site: [place] mLAD has 70% stenosis. 9:27:46 Heparin Bolus 4000 units I.V. was administered by Finesse Watkins RN; for anticoagulation; Verbal order read back and verified. 9:28:19 Place stent Inflation Number: 1 A MICHELA RX 3.0 x 15 stent ([id number]) was prepped and advanced across the Mid LAD . The stent was deployed at 17 YAQUELIN for 0:10 (min:sec) . 9:28:43 Stent catheter was removed intact over wire. 9:29:23 mLAD lesion measured at 1.08 with IFR POST STENT. 9:30:03 Post PCI Site: [place] mLAD has 0% stenosis. 9:30:18 Wire removed. 9:30:20 Guide catheter removed. 9:30:30 EXOSEAL 6Fr (EX600) opened to sterile field. 9:30:56 Sheath removed intact; hemostasis achieved with Exoseal to the Right Femoral artery. 9:31:00 Procedure ended.(Physican Out) 9:31:29 Fluoroscopy time 03.30 minutes. 9:31:38 Contrast amount:Isovue 300 85ml. 9:31:50 Fluoroscopy dose: 285 mGy 9:31:50 Flurop Dose total: 285 9:32:04 Dose Area Product 95732 mGy/cm. 9:32:08 Maximum allowable dose exceeded? No. 9:32:10 Sharps counted by scrub and verified by R.N. 9:32:26 Insertion/operative site no bleeding no hematoma. 9:33:19 Post-op/insertion site Right Femoral artery dressed using a 4 x 4 and Tegaderm. 9:33:27 Post right femoral artery:stable 9:33:37 ACT drawn and resulted at OUT OF RANGE seconds. (normal therapeutic range 180-240 seconds). 9:34:13 Post Procedure Pulses reassessed and unchanged 9:34:22 Post-procedure physical assessment completed. ASA score P 3 - A patient with severe systemic disease as per Rodrick Moran MD. 9:34:27 Post procedure rhythm: unchanged. 9:34:31 Estimated blood loss: 10 ml 9:34:33 Post procedure instruction explained to patient.Patient verbalizes understanding. 9:34:35 Patient needs reinforcement of post procedure teaching. 9:35:36 Procedure type changed to Cath procedure, Diagnostic procedure, LHC, LHC w/Coronaries, FFR/IVUS, FFR Initial, PCI procedure, Coronary Stent, Coronary Stent Initial 9:36:51 Procedure and supply charges have been captured, reviewed, submitted and are correct. 9:37:02 Procedure Complication : No complications 9:37:06 Vital chart was stopped 9:37:12 [facility] Findings: MVD- PCI performed (see procedure note) 9:37:14 Operative report dictated upon procedure completion. 9:37:16 See physician's report for complete and final results. 9:37:21 Report given to [facility]. 9:37:26 Patient transfered to [facility] with Bed. 9:37:29 Full Disclosure recording stopped 9:37:29 Procedure ended. 9:37:39 ACC-PCI Only Patient was given prescriptions, or instructed by Rodrick Moran MD to start/continue the following medications upon discharge: Plavix 9:37:41 End room use (Document Last) Intervention Summary Intervention Notes Time ActionType Lesion and Equipment Used Action# Pressure Duration Attributes 9:28:19 Place stent Mid LAD MICHELA RX 3.0 x 1 17 00:10 15 stent ([id number]) Device Usage Item Name Manufacture Quantity Catalog Hospital Part Current Minimal Lot# / Number Charge Number Stock Stock Serial# Code ACIST Syringe Acist 1 54515 156735 243719 638853 20 (39223) Medical Systems Inc Bag Decanter Microtek 1 2002S 820994 54462 295148 5 (2002S) Medical Inc. Medline Cath Medline 1 [id number] 934337 96003 726530 5 Pack ([id number]) ACIST Hand Acist 1 26960 341890 597517 652646 5 Control Medical (70195) Systems Inc ACIST Manifold Acist 1 55232 442326 918105 400095 5 (30897) Medical Systems Inc DIAGNOSTIC Cardinal 1 CG8049 963613 36822 485750 30 Multipack 5Fr Health catheter set (KH7556) Tegaderm 4 x 4 3M 1 1626W 727889 293417 607806 5 (1626W) SHEATH 5FR Terumo 1 YPR041 061013 191859 151574 5 [employer] (OMD363) EMERALD Guide Cardinal 1 502-455 525895 673674 749160 5 Wire (502-455) Health MULTIPACK Cardinal 1 577639 5 Pigtail 5 Fr Health catheter MULTIPACK JL Cardinal 1 662573 5 4.0 5Fr Health catheter MULTIPACK 3DRC Cardinal 1 105585 5 5Fr catheter Health SHEATH 6FR Terumo 1 WNS206 218097 450435 146283 40 [employer] (XEI878) Dovray Dovray 1 38350I 276174 708048395 412379 5 Verrata Plus pressure wire (49077S) GUIDE 6FR Cardinal 1 [id number] 484400 451238 054717 10 XBLAD 3.5 Health catheter ([id number]) INFLATOR Merit Merit 1 CE3787 767221 153277 184039 15 BasixCompak Medical (OG8655) MICHELA RX 3.0 x Medtronic 1 [id number] 440200 9421408 908165 5 [id number] 15 stent ([id number]) EXOSEAL 6Fr Cardinal 1 EX600 617708 756050 559910 10 (EX600) Health Signature Audit [place] Stage Time Signature Unsigned Intra-Procedure 03/03/2019 Janet 9:38:15 AM Sanjuanita RT(R) (CV) Intra-Procedure 03/03/2019 Finesse 9:38:45 AM June JUNG Intra-Procedure 03/03/2019 Rodrick Allen RT(R) 9:42:39 AM 03/09/2019 2:26:42 PM Intra-Procedure 03/09/2019 Rodrick Moran 2:28:04 PM [facility] [address] [place] [address]
[2019-03-02 11:50] LABS: BASOPHILS 0.2 % (0-2); EOSINOPHILS 2.5 % (0-7); HEMATOCRIT 37.8 % (36.0-48.0); HEMOGLOBIN 12.4 g/dL (12-16); IMMATURE GRANULOCYTES 1.5 % (0-5); LYMPHOCYTES 27.6 % (15-50); MCH 33.7 pg (26.0-34.0); MCHC 32.8 g/dL (31.0-37.0); MCV 102.7 fL (80.0-100.0); MONOCYTES 7.3 % (2-11); NEUTROPHILS 60.9 % (40-80); PLATELET COUNT 301 10x3/uL (130-400); RBC 3.68 10x6/uL (4.00-5.40); RDW 16.4 % (11.5-14.5); WBC 8.9 10x3/uL (4.8-10.8)
[2019-03-02 11:57] LABS: APTT 22.6 SECONDS (22.8-39.4); INR 0.93 (0.85-1.17)
[2019-03-02 11:59] LABS: CALC OSMOLALITY 284 mosm/kg (275-300); CALCIUM 9.2 mg/dL (8.5-10.1); CARBON DIOXIDE 28.2 mmol/L (21.0-32.0); CHLORIDE - SERUM 104 mmol/L (98-107); CREATININE - SERUM 0.9 mg/dL (0.6-1.3); D-DIMER-QUANTITATIVE 0.3 ug/mLFEU (0.20-0.54); GLUCOSE 99 mg/dL (74-106); POTASSIUM - SERUM 4.1 mmol/L (3.5-5.1); SODIUM 140 mmol/L (136-145); UREA NITROGEN 28 mg/dL (7-18); eGFR NON AFRICAN AMERICAN 63 mL/min (90-120)
[2019-03-02 12:29] LABS: ALBUMIN 3.7 g/dL (3.4-5.0); ALKALINE PHOSPHATASE 82 U/L (46-116); ALT (SGPT) 16 U/L (10-68); CKMB 1.3 U/L (0.0-3.6); CREATINE KINASE 26 UL (21-215); MAGNESIUM - SERUM 1.6 mg/dL (1.8-2.4); PROTEIN - SERUM 7.4 g/dL (6.4-8.2); TROPONIN-I < 0.017 ng/mL (0.000-0.060)
[~2019-03-02 12:37] MED LIST changes: +LISINOPRIL-HCT1 EAC8 PO; +NORMODYNE / TR100 MG PO; +NORVASC5 MG PO
--- NOTE | 2019-03-02 14:05 | MORECARE ---
CASE MANAGEMENT DISCHARGE SUMMARY PATIENT: DENAE HALLMAN UNIT: [id number] ADM DATE: 03/02/19 AGE: 83 : 35 SEX: F ROOM/BED: D.212 AUTHOR: KRYS CAMPOS PHYSICIAN: REFERRING PHYSICIAN: GREGORIO STROUD MD DATE OF SERVICE: 03/02/19 Discharge Plan Patient Name: DENAE HALLMAN Facility: [facility]:[place] : 1935 Planned Disposition: Anticipated Discharge Date: Discharge Date: Expected LOS: 0 Initial Reviewer: [email or web address] Initial Review Date: 03/02/2019 Generated: 03/02/19 3:05 pm DCPIA - Discharge Planning Initial Assessment Updated by [email or web address]: Yarely Krishnan on 03/02/19 1:59 pm * Is the patient Alert and Oriented? Yes * How many steps to enter\exit or inside your home? 3 w/rails * PCP Dr. Ashwini Connolly * Pharmacy [facility] (short-term) [facility] (long-term) * Preadmission Environment Home Alone * ADLs Independent * Equipment None * Other Equipment NA * List name and contact numbers for known caregivers / representatives who currently or will assist patient after discharge: Afshin Ramos (dtr) [phone] Erum Tejada (dtr) [phone] * Verbal permission to speak to the caregivers and representatives has been obtained from the patient. Yes * Please name any agencies selected above. NA * Additional services required to return to the preadmission environment? No * Can the patient safely return to the preadmission environment? Yes Coverage Notice Reviewer: [id number] - Yarely Krishnan Notice Issued Date-Time: 03/02/2019 13:05 Notice Type: Medicare Outpatient Observation Notice Notice Delivered To: Patient Relationship to Patient: Self Skidder Lever Operator Name: Denae Hallman Delivery Method: HAND - Hand Delivered Gabbie Days: Prior Verbal Notification: Recipient Understood Notice: Recipient Signature: Yes Med Rec Note Co-signed by Attending: Coverage Notice Comment: HART delivered to and signed by patient. Patient Name: DENAE HALLMAN Page [phone] at 1405 All edits/amendments must be made on the electronic document DICTATION DATE: 03/02/191404 ANIMAL REHABILITATOR: MIGUEL 03/02/191404 RPT#: [id number] DC DATE: STATUS: REG [facility] [address] [facility] [place] [address] END OF REPORT
[2019-03-02 15:35] VITALS: Ht 160 cm; Wt 59.4 kg
[2019-03-02 16:00] VITALS: BP 116/48
--- NOTE | 2019-03-02 16:00 | NUR ---
PT TO FLOOR FROM ER VIA WHEELCHAIR. COMPLAINT OF CHEST PAIN 2/10 ON ARRIVAL. 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 CALL LIGHT IN REACH, TV TURNED ON FOR PT WITH CC IN USE.
--- NOTE | 2019-03-02 17:05 | NUR ---
ALERT AND ORIENTED X4. SITTING UP IN BED EATING. CONSENTS FOR INFORMATION MANAGEMENT SPECIALIST SIGNED ON CHART. SINUS RYTHM 85 ON TELEMETRY. DENIES ANY NEEDS AT THIS TIME. CONTINUE PLAN OF CARE AND SAFETY PRECAUTIONS.
--- NOTE | 2019-03-02 19:18 | NUR ---
RECEIVED BEDSIDE REPORT. PATIENT IS ALERT AND ORIENTED, RESPIRATIONS ARE EVEN AND UNLABORED. NO S/S OF DISTRESS. NO C/O PAIN. CALL LIGHT WITHIN REACH. WILL CPOC.
[2019-03-02 20:00] VITALS: BP 116/49
[2019-03-03] VITALS: BP 103/45
[2019-03-03 04:00] VITALS: BP 113/49
[2019-03-03 04:59] LABS: BASOPHILS 0.2 % (0-2); EOSINOPHILS 1.3 % (0-7); HEMATOCRIT 33.4 % (36.0-48.0); HEMOGLOBIN 10.8 g/dL (12-16); IMMATURE GRANULOCYTES 0.7 % (0-5); LYMPHOCYTES 5.4 % (15-50); MCH 32.5 pg (26.0-34.0); MCHC 32.3 g/dL (31.0-37.0); MONOCYTES 4.9 % (2-11); NEUTROPHILS 87.5 % (40-80); PLATELET COUNT 265 10x3/uL (130-400); RBC 3.32 10x6/uL (4.00-5.40); RDW 16.4 % (11.5-14.5); WBC 9.4 10x3/uL (4.8-10.8)
[2019-03-03 05:08] LABS: ALBUMIN 2.9 g/dL (3.4-5.0); ALKALINE PHOSPHATASE 71 U/L (46-116); ALT (SGPT) 18 U/L (10-68); BILIRUBIN - TOTAL 0.39 mg/dL (0.2-1.3); CALC OSMOLALITY 283 mosm/kg (275-300); CALCIUM 8.2 mg/dL (8.5-10.1); CHLORIDE - SERUM 106 mmol/L (98-107); CKMB 0.5 U/L (0.0-3.6); CREATINE KINASE 25 UL (21-215); GLUCOSE 123 mg/dL (74-106); POTASSIUM - SERUM 3.9 mmol/L (3.5-5.1); PROTEIN - SERUM 6.5 g/dL (6.4-8.2); SODIUM 140 mmol/L (136-145); UREA NITROGEN 23 mg/dL (7-18); eGFR NON AFRICAN AMERICAN 56 mL/min (90-120)
[2019-03-03 05:10] LABS: TROPONIN-I < 0.017 ng/mL (0.000-0.060)
[2019-03-03 05:29] LABS: MCV 100.6 fL (80.0-100.0)
--- NOTE | 2019-03-03 07:50 | NUR ---
C/O NUMBNESS AND HEAVINESS TO BOTH ARMS. B/P 104/67. DR OSBORNE NOTIFIED. NEW ORDERS GIVEN.
--- NOTE | 2019-03-03 08:53 | NUR ---
PRE-OPS GIVEN, TO COMMERCIAL BAKING TEACHER BY BED.
--- NOTE | 2019-03-03 09:31 | HP ---
PATIENT: DENAE HALLMAN MEDICAL RECORD: [id number] ACCOUNT: [id number] LOCATION:[address] : 35 ADMISSION DATE: 03/02/19 PCP: OLIVIA HAMMOND MD HISTORY AND PHYSICAL EXAMINATION DATE OF ADMISSION: 03/02/2019 ADMITTING DIAGNOSES: 1. Unstable angina. 2. Coronary artery disease. 3. Previous percutaneous transluminal coronary angioplasty stent. 4. Hypertension. 5. Hyperlipidemia. 6. Smoking. 7. Chronic obstructive pulmonary disease. HISTORY OF PRESENT ILLNESS: Mrs. Hallman presents with 2 weeks of increasing chest pain. She presented last weekend to [facility] with chest pain, it was felt to be bronchitis. She was treated with antibiotics and steroids. She continued to have the chest pain and chest pain is actually not at all compatible with bronchitis, it is compatible with angina, it has nothing to do with a cough that she had. The cough is minor and the cough is resolved with the antibiotics and prednisone. However, the chest pain has continued to escalate. She is having episodes of chest pain at rest. It is a typical angina. There is dull aching sensation of tightness across the anterior chest, like an elephant is sitting on her chest. This is just like that of her previous angina. Her last cardiac intervention was 2-vessel PTCA stent in June of this year. She presented here, was initially hypertensive with systolic blood pressures in the 180s. She is now with systolic blood pressure in the 100-110 range, heart rates in the 50s. She did have the addition of Imdur to her medical regimen. She continues to have episodes of chest pain despite the Imdur and the optimal heart rate and blood pressure control. PHYSICAL EXAMINATION: CONSTITUTIONAL/GENERAL APPEARANCE: Well nourished, well developed, appears stated age. EYES: Lids and conjunctivae noninjected. No discharge. No pallor. ENT: Lips within normal limit. No cyanosis. No pallor. NECK: Carotid arteries, bilateral normal upstroke. No bruits. No thrills. No jugular venous pressure or distention. CERVICAL LYMPH NODES: Nontender. Nonenlarged. THYROID: Not enlarged. No nodules. CARDIOVASCULAR: Precordial exam, nondisplaced. No heaves or pericardial thrills. Rate and rhythm, regular. Heart sounds, normal S1, normal S2. No S3, no gallop, no rub. Systolic murmur, not heard. Diastolic murmur, not heard. RESPIRATORY: Respiratory effort, unlabored. Normal curvature. No thoracic deformity. No chest wall tenderness. Percussion, resonant. Auscultation, clear. No wheezes, no rales, no rhonchi. ABDOMEN: Soft, nondistended, nontender. No abdominal pain, no vomiting and normal appetite. MUSCULOSKELETAL: No joint tenderness, normal gait, normal tone. SKIN: Warm and dry. REVIEW OF SYSTEMS: The patient reports easy bruising but reports no swollen glands. The patient reports no fever, no night sweats, no significant weight HISTORY AND PHYSICAL [id number] BRUSH,DENAE Hercules gain, no significant weight loss. No significant exercise tolerance. The patient reports no dry eyes, no irritation, no vision change. Patient reports no difficulty hearing and no ear pain. Patient reports no frequent nose bleeds or nose and sinus problems. Patient reports on arm pain on exertion. No shortness of breath while lying down. No history of heart murmur. Patient reports no cough, no wheezing or coughing up blood. Patient reports no abdominal pain, no vomiting. Normal appetite. No diarrhea and not vomiting blood. No nausea and no constipation. Patient reports no incontinence. No difficulty urinating. No hematuria. No increased frequency. Patient reports no muscle aches. No weakness, no arthralgias, no back pain. No swelling of the extremities. Patient reports no abnormal mole, no jaundice, no rashes. Reports no loss of consciousness. No weakness and no numbness. No seizures, dizziness, or headaches. The patient reports no depression, no sleep disturbance, feeling safe in a relationship and no alcohol abuse. Patient reports on fatigue. Reports no runny nose or sinus pressure. No itching, no hives, and no frequent sneezing. SOCIAL HISTORY: She lives in the [facility]. She does still occasionally smoke. She denies ETOH or substance abuse. FAMILY HISTORY: Positive for premature coronary artery disease as well as hypertension, hyperlipidemia. She as well has hyperlipidemia, but has had intolerance to the statins, hence is not on any medications for the hyperlipidemia. OVERALL IMPRESSION: Chest pain compatible with unstable angina. Now episodes of rest pain and class IV, despite maximal medical therapy. We will proceed with coronary angiography in the morning. Further care depends upon findings of the angiography. TRANSINT:[id number] Voice Confirmation ID: [id number] DOCUMENT ID: [id number] AMY OSBORNE MD at 0931 CC: [id number] DICTATION DATE: 03/02/19 163 INTERVENTIONAL RADIOLOGY TECH: 03/02/192051 [facility] [address] [place] [place] [id number]
[2019-03-03] MEDS ORDERED: PRAVACHOL20 MG PO (09:55)
[2019-03-03] MEDS ORDERED: PLAVIX75 MG PO (09:55)
--- NOTE | 2019-03-03 10:00 | NUR ---
PATIENT ARRIVED TO ROOM 1, PLACED ON CM AND 2L NC. VSS. RIGHT GROIN DRESSING IS CDI, NO S/S OF BLEEDING OR HEMATOMA.
--- NOTE | 2019-03-03 10:15 | NUR ---
PATIENT RESTING, FAMILY PRESENT AT BEDSIDE. VSS ON 2L NC. RIGHT GROIN DRESSING IS CDI, NO S/S OF BLEEDING OR HEMATOMA. NO C/O PAIN, NUMBNESS, OR TINGLING. NO N/V.
--- NOTE | 2019-03-03 10:45 | NUR ---
PATIENT RESTING, VSS ON ROOM AIR. RIGHT GROIN DRESSING IS CDI, NO S/S OF BLEEDING OR HEMATOMA. NO C/O PAIN, NUMBNESS, OR TINGLING.
--- NOTE | 2019-03-03 10:45 | NUR ---
PATIENT INTERMITTENTLY RESTING, VSS ON 2L NC. RIGHT GROIN DRESSING IS CDI, NO S/S OF BLEEDING OR HEMATOMA. NO C/O PAIN, NUMBNESS, OR TINGLING. NO N/V.
--- NOTE | 2019-03-03 11:15 | NUR ---
PATIENT RESTING, FAMILY PRESENT AT BEDSIDE UPDATED BY PHYSICIAN. VSS ON 1L NC. RIGHT GROIN DRESSING IS CDI, NO S/S OF BLEEDING OR HEMATOMA. NO C/O PAIN, NUMBNESS, OR TINGLING.
--- NOTE | 2019-03-03 12:15 | NUR ---
PATIENT RESTING, FAMILY AT BEDSIDE. VSS ON 1L NC. RIGHT GROIN DRESSING IS CDI, NO S/S OF BLEEDING OR HEMATOMA. NO C/O PAIN, NUMBNESS, OR TINGLING.
--- NOTE | 2019-03-03 12:30 | NUR ---
HEAD OF BED AT 30 DEGREES. RIGHT GROIN DRESSING C/D/I. NO S/S OF HEMATOMA NOTED. DAUGHTER AT BEDSIDE. PT SET UP WITH SANDWICH TRAY AND DRINK. VSS.
--- NOTE | 2019-03-03 13:00 | NUR ---
DISCUSSED DISCHARGE INSTRUCTIONS WITH PT AND PT'S FAMILY. THEY VOICED UNDERSTANDING.
--- NOTE | 2019-03-03 13:25 | NUR ---
RIGHT GROIN DRESSING IS CDI, NO S/S OF BLEEDING OR HEMATOMA. IV REMOVED. VSS ON ROOM AIR. PATIENT DISCONNECTED FROM MONITOR TO GET DRESSED.
--- NOTE | 2019-03-03 13:30 | NUR ---
PATIENT VOIDED WITHOUT DIFFICULTY. PATIENT TRANPORTED VIA WHEELCHAIR TO CAR WITH FAMILY DRIVING, ALL BELONGINGS WITH PATIENT.
--- NOTE | 2019-03-10 14:07 | DS ---
PATIENT:DENAE HALLMAN :35 MEDICAL RECORD: [id number] DISCHARGE SUMMARY ADMISSION DATE: 03/02/19 DISCHARGE DATE: 03/03/19 DATE OF DISCHARGE: 03/03/2019. DISCHARGE DIAGNOSES: 1. Unstable angina. 2. Coronary artery disease. 3. Percutaneous transluminal coronary angioplasty stent left anterior descending this admission. 4. Hypertension. 5. Hyperlipidemia. HOSPITAL COURSE: Mrs. Hallman presents with unstable anginal symptomatology, found to have hemodynamically significant disease of the LAD, underwent successful PTCA stent of the LAD with no further anginal symptomatology. Discharged home with the addition of aspirin, Plavix, Pravachol to her medical regimen. Will follow up with [facility] in 1 month. TRANSINT:[id number] Voice Confirmation ID: [id number] DOCUMENT ID: [id number] AMY OSBORNE MD at 1407 CC: [id number] DICTATION DATE: 03/03/19 0936 DIRECTOR OF WOMEN'S SERVICES: 03/04/19 0112 DEP CLI 03/03/[address] [address]
--- NOTE | 2019-03-10 14:07 | OP ---
PATIENT NAME: DENAE HALLMAN MEDICAL RECORD: [id number] :35 LOCATION:D.OPS ADMISSION DATE: SURGEON: AMY OSBORNE MD DATE OF OPERATION: 03/03/2019 DATE OF SERVICE: 03/03/2019 PROCEDURES: 1. PTCA stent LAD. 2. IFR LAD. 3. IFR left circumflex. 4. Left heart catheterization. 5. Selective coronary angiography. 6. Left ventriculogram. INDICATION: Unstable angina and coronary artery disease. PROCEDURE IN DETAIL: After informed consent was obtained and after a detailed description of risks, benefits as well as alternative therapies, the patient elected to proceed with angiogram and angioplasty. The right femoral area was prepped and draped in normal sterile fashion. Right femoral artery was cannulated via modified Seldinger technique with placement of 6-Lux[place]bourg[place] sheath. All catheters exchanged through this sheath. FINDINGS: The left ventriculogram was performed in standard 30-degree DUNN view, reveals preserved cardiac wall motion, ejection fraction 55%. SELECTIVE CORONARY ANGIOGRAPHY: 1. Left main is with no significant angiographic disease. 2. Left anterior descending has previously placed stents with up to 70% in-stent restenosis proximally. An IFR was abnormal at 0.82. 3. Left circumflex has mild irregularities, but no flow-limiting stenosis. Previously placed stent has a questionable area of restenosis; however, IFR is normal at 0.97. 4. The right coronary artery has mild irregularities, but no flow-limiting stenosis. Previously placed stents are widely patent. PTCA STENT OF THE LAD: The stent used was a 3.0 x 15 mm [place] taken to 17 atmospheres. IFR normalized to greater than 1.0 after the stenting. OVERALL IMPRESSION: Successful percutaneous transluminal coronary angioplasty stent of the left anterior descending with up to 70% in-stent restenosis proximally with abnormal IFR to 0% residual stenosis with normalization of the IFR. TRANSINT:[id number] Voice Confirmation ID: [id number] DOCUMENT ID: [id number] OPERATIVE REPORT [id number] DENAE HALLMAN AMY OSBORNE MD at 1407 CC: [id number] DICTATION DATE: 03/03/19 0937 SOCIAL SERVICES: 03/03/19 1046 DEP CLI 03/03/[address] [address]
--- NOTE | 2019-03-10 14:07 | EC ---
PATIENT:DENAE HALLMAN DATE OF SERVICE: 03/02/19 SEX: F MEDICAL RECORD: [id number] DATE OF : 35 LOCATION:D.OPS AGE OF PATIENT: 83 ADMISSION DATE: 03/02/19 REFERRING PHYSICIAN: INTERPRETING PHYSICIAN: AMY MORAN MD ECHOCARDIOGRAM REPORT ECHO CHARGES 4 ECHO COMPLETE Date: 03/02/19 CLINICAL DIAGNOSIS: CHEST PAIN,SOB ECHOCARDIOGRAPHIC MEASUREMENTS (adult normal given) AC root (d.<3.7cm) 2.8 cm LV Septum d (<1.2 cm> 1.2 cm Valve Excursion 0.9 cm LV Septum (systole) 1.3 cm Left Atria (s.<4.0cm> 3.7 cm LVPW d(<1.2cm) 1.5 cm RV (d.<2.3cm) 3.6 cm LVPW (sytole) 1.8 cm LV diastole(<5.6CM) 4.3 cm MV E-F(>70mm/sec) cm LV systole 3.0 cm LVOT Diameter 1.7 cm MV exc.(>10mm) 1.2 cm Est.ejection fraction (50-75%) % DOPPLER: LVIT cm/sec A 106 cm/sec E 67.0 cm/sec LA cm/sec RVSP 19 mmHg LVOT 114 cm/sec AOP1/2T m/s Asc. Ao 141 cm/sec RVOT 100 cm/sec RA cm/sec PA 126 cm/sec AV Gradient Peak 7.97 mmHg AV Mean 4.19 mmHg AV Area 1.9 cm MV Gradient Peak 1.84 mmHg MV Mean 0.58 mmHg MV Area cm COMMENTS: Houseperson: Candida ESPINOSA Gis Instructor: 1 Dr. Moran TAPE# PACS Pericardial Effusion N DATE OF SERVICE: FINDINGS: 1. Left ventricular chamber size is within normal limits. Left ventricular systolic function is normal. Overall ejection fraction estimated at 60% to 65%. 2. Left atrium, right atrium, and right ventricle chamber sizes are within normal limits. 3. Valvular structures have normal structure and motion. 4. Doppler interrogation reveals mild tricuspid regurgitation, no other valvular insufficiency or stenosis and pulmonary systolic pressure is estimated ECHOCARDIOGRAM REPORT [id number] DENAE HALLMAN at 19 mmHg. 5. No evidence of pericardial effusion or left ventricular thrombus. TRANSINT:[id number] Voice Confirmation ID: [id number] DOCUMENT ID: [id number] AMY MORAN MD at 1407 CC: [id number] DICTATION DATE: 03/03/19 111 CHEMICAL APPLICATOR: 03/03/19 1135 DEP CLI 03/03/19 [place] [id number] [place] [id number]
--- NOTE | 2019-03-22 14:02 | MORECARE ---
CASE MANAGEMENT DISCHARGE SUMMARY PATIENT: DENAE HALLMAN UNIT: [id number] ADM DATE: 03/02/19 AGE: 83 : 35 SEX: F ROOM/BED: AUTHOR: KRYS CAMPOS PHYSICIAN: REFERRING PHYSICIAN: AMY OSBORNE MD DATE OF SERVICE: 03/22/19 Discharge Plan Patient Name: DENAE HALLMAN Facility: [facility]:[place] : 1935 Planned Disposition: Anticipated Discharge Date: Discharge Date: 03/03/2019 Expected LOS: 0 Initial Reviewer: [email or web address] Initial Review Date: 03/02/2019 Generated: 03/22/19 3:01 pm DCPIA - Discharge Planning Initial Assessment Updated by [email or web address]: Yarely Krishnan on 03/02/19 1:59 pm * Is the patient Alert and Oriented? Yes * How many steps to enter\exit or inside your home? 3 w/rails * PCP Dr. Ashwini Connolly * Pharmacy [facility] (short-term) [facility] (long-term) * Preadmission Environment Home Alone * ADLs Independent * Equipment None * Other Equipment NA * List name and contact numbers for known caregivers / representatives who currently or will assist patient after discharge: Afshin Ramos (dtr) [phone] Erum Tejada (dtr) [phone] * Verbal permission to speak to the caregivers and representatives has been obtained from the patient. Yes * Please name any agencies selected above. NA * Additional services required to return to the preadmission environment? No * Can the patient safely return to the preadmission environment? Yes Coverage Notice Reviewer: [email or web address] - Yarely Krishnan Notice Issued Date-Time: 03/02/2019 13:05 Notice Type: Medicare Outpatient Observation Notice Notice Delivered To: Patient Relationship to Patient: Self Poultry Packer Name: Denae Hallman Delivery Method: HAND - Hand Delivered Gabbie Days: Prior Verbal Notification: Recipient Understood Notice: Recipient Signature: Yes Med Rec Note Co-signed by Attending: Coverage Notice Comment: HART delivered to and signed by patient, original to patient and copy to patient's chart. Last DP export: 03/02/19 2:05 Patient Name: DENAE HALLMAN Page [phone] at 1402 All edits/amendments must be made on the electronic document DICTATION DATE: 03/22/191400 HAIR DRYER: MIGUEL 03/22/191400 RPT#: [id number] [place] DATE:03/03/19 STATUS: DEP [facility] [address] [place] [address] END OF REPORT
== END 2019-03-03 13:30 ==
LOC: D.OPS 12:37 → D.M2 12:37 → EDSTATUS 13:08 → D.M2 13:39 → D.OPS 03-03 13:30
PROVIDERS: Family Medicine; ATTEND Internal Medicine Interventional Cardiology
DX: I25.110 Atherosclerotic heart disease of native coronary artery with unstable angina pectoris (principal); I10 Essential (primary) hypertension; E78.5 Hyperlipidemia, unspecified
CPT/HCPCS: C9600; 93458; 93571; 93572

== ENCOUNTER 2019-04-03 21:11 | Observation (INO) | payer MEDICARE, BC ==
[~2019-04-03] VITALS: Ht 160 cm; Wt 61.9 kg
--- NOTE | ~2019-04-03 | CN ---
PATIENT NAME:DENAE DEL RIO MEDICAL RECORD: [id number] : 35 LOCATION:[facility] D.2122 ADMIT DATE: 04/03/19 ACCOUNT: [id number] CONSULTING PHYSICIAN: AMY OSBORNE MD REFERRING PHYSICIAN: HAILY DAVIS MD DATE OF CONSULTATION: 04/04/2019 DIAGNOSES: 1. Unstable angina class IV. 2. Coronary artery disease. 3. Previous multivessel PTCA and stent. 4. Hypertension. 5. Hyperlipidemia. 6. Chronic obstructive pulmonary disease. 7. Smoking. HISTORY OF PRESENT ILLNESS: Ms. Del Rio presents with increasing anginal symptomatology, it has been increasing for the past 4 days. She is having episodes of rest pain. Quite severe just like that of her previous angina. Dull aching sensation across the anterior chest, radiating to her jaw. It has been associated with diaphoresis as well. Last cardiac intervention was approximately a month and a half ago. At that time, she was pain free after the intervention. It has now come back on her. She has been hypertensive with systolic blood pressures in the 160s to 170s. She is bradycardic in the 60s. PHYSICAL EXAMINATION: CONSTITUTIONAL/GENERAL APPEARANCE: Well nourished, well developed, appears stated age. EYES: Lids and conjunctivae noninjected. No discharge. No pallor. ENT: Lips within normal limit. No cyanosis. No pallor. NECK: Carotid arteries, bilateral normal upstroke. No bruits. No thrills. No jugular venous pressure or distention. CERVICAL LYMPH NODES: Nontender. Nonenlarged. THYROID: Not enlarged. No nodules. CARDIOVASCULAR: Precordial exam, nondisplaced. No heaves or pericardial thrills. Rate and rhythm, regular. Heart sounds, normal S1, normal S2. No S3, no gallop, no rub. Systolic murmur, not heard. Diastolic murmur, not heard. RESPIRATORY: Respiratory effort, unlabored. Normal curvature. No thoracic deformity. No chest wall tenderness. Percussion, resonant. Auscultation, clear. No wheezes, no rales, no rhonchi. ABDOMEN: Soft, nondistended, nontender. No abdominal pain, no vomiting and normal appetite. MUSCULOSKELETAL: No joint tenderness, normal gait, normal tone. SKIN: Warm and dry. OVERALL IMPRESSION: Unstable angina. At this time, we will optimize her medical management with addition of long-acting nitrates and calcium channel brianna. She does not need a beta-brianna as she is already bradycardic. If she continues to have chest pain, would consider repeat angiography. TRANSINT:[id number] Voice Confirmation ID: [id number] DOCUMENT ID: [id number] CONSULT REPORT [id number] DENAE DEL RIO JEFFREY MD CC: [id number] DICTATION DATE: 04/04/19 1150 INSTRUCTIONAL SUPERVISOR: 04/04/19 1217 ADM IN [place] [id number] [place] [id number]
--- NOTE | ~2019-04-03 | HEMODYNAMI ---
PATIENT:DENAE HALLMAN MEDICAL RECORD: [id number] : 35 LOCATION:[facility] D.2 ADMISSION DATE: 04/03/19 Generatedon:04/05/201916:21 Patient name: DENAE HALLMAN Patient #: [id number] : 1935 Date of study: 04/05/2019 Page: Of Hemodynamic Procedure Report Patient Data Patient Demographics Procedure consent was obtained First Name: DENAE Gender: Female Last Name: LEXX : 1935 [facility] Initial: J Age: 83 year(s) Patient #: [id number] Race: SSN: [id number] Additional ID: [id number] Contact details [address]: [address] [place] [address] State: [place] City: [place] Zip code: [address] Past Medical History History of disease Date Diagnosis Comments CAD Allergies Allergen Reaction Date Comments Reported Other allergy 04/05/2019 AMLODIPINE Admission Admission Data Admission Date: 04/03/2019 Admission Time: 22:04 Admit Source: Emergency department Room #: D.2122 Height (in.): 62.99 BSA: 1.64 (m2) Height (cm.): 160 BMI: 24.22 (kg/m2) Weight (lbs.): 136.69 Weight (kg.): 62 Lab Results Lab Result Date: 04/05/2019 Lab Result Time: 0:00 Biochemistry Name Units Result Min Max BUN mg/dl 20 --(----)*- 7 18 Creatinine mg/dl 0.9 --(-*--)-- 0.6 1.3 eGFR ml/min 63 *-(----)-- 90 120 NONAFRICAN CBC Name Units Result Min Max Hematocrit % 34.1 *-(----)-- 42 54 Hemoglobin g/dl 11 *-(----)-- 13.5 17.5 Procedure Procedure Types Cath Procedure Diagnostic Procedure LHC C w/Coronaries Sedation Charges Moderate Sedation up to 15 minutes PCI Procedure Coronary Stent Coronary Stent Initial Hemochron ACT Test Procedure Description Procedure Date Procedure Date: 04/05/2019 Procedure Start Time: 15:57 Procedure End Time: 16:18 Procedure Staff Name Function Ger Allen RT Scrub Janet Gann RT Scrub Finesse Watkins RN Nurse Mitzi Goode RT Monitor Marsha Au RT Monitor Rodrick Moran MD Performing Physician Indication Angina Procedure Data Cath Procedure Fluoroscopy Diagnostic fluoroscopy Total fluoroscopy Time: 7.1 time: 7.1 min min Contrast Material Contrast Material Type Amount (ml) Isovue 370 95 Entry Location Entry Primary Successful Side Size Upsize Upsize Entry Closure Succes sful Closure Location (Fr) 1 (Fr) 2 (Fr) Remarks Device Remarks Femoral Right 5 Fr 6 Fr Exoseal artery Short Estimated blood loss: 10 ml Diagnostic catheters Device Type Used For End Catheter Placement MULTIPACK Pigtail 5 Fr Procedure catheter MULTIPACK JL 4.0 5Fr Procedure catheter MULTIPACK 3DRC 5Fr Procedure catheter Procedure Complications No complications Procedure Medications Medication Administration Route Dosage 0.9% NaCl I.V. 100 ml/hr Oxygen etCO2 Nasal cannula 2 l/min Heparin Flush Bag added to field 2 bags (1000units/500ml NS) Lidocaine 2% added to field 20 Versed I.V. 2 mg Fentanyl I.V. 100 mcg Heparin Bolus I.V. 4000 units Hemodynamics Rest BSA: 1.64 (m2) HGB: 11 (g/dl) O2 Consumption: Estimated: 148.6 (ml/min) O2 Consu mption indexed: Estimated:90.61 (ml/min/m) Heart Rate: 74 (bpm) Snapshots Pre Cath Intra NCS Post Cath Vital Signs Time Heart Resp SPO2 etCO2 NIBP (mmHg) Rhythm Pain Sedation Rate (ipm) (%) (mmHg) Status Level (bpm) 15:37:33 73 28 97 0 172/71(141) NSR 0 (11) 10(A) , No pain 15:41:57 72 39 98 30.1 162/71(121) NSR 0 (11) 10(A) , No pain 15:46:19 71 18 98 31.6 158/70(125) NSR 0 (11) 10(A) , No pain 15:50:44 73 28 97 27.1 158/75(115) NSR 0 (11) 10(A) , No pain 15:55:04 71 16 97 26.3 155/68(118) NSR 0 (11) 10(A) , No pain 15:59:24 73 20 97 21 152/64(123) NSR 0 (11) 10(A) , No pain 16:03:42 75 12 96 9.8 153/71(110) NSR 0 (11) 9(A) , No pain 16:08:00 68 28 95 3 123/57(95) NSR 0 (11) 9(A) , No pain 16:12:14 73 14 96 0 141/66(105) NSR 0 (11) 9(A) , No pain 16:16:32 66 16 97 0.7 124/59(92) NSR 0 (11) 10(A) , No pain Medications Time Medication Route Dose Verified Delivered Reason Notes Effectiveness by by 15:39:20 0.9% NaCl I.V. 100 Finesse Finesse Per physician ml/hr June Watkins RN RN 15:39:31 Oxygen etCO2 2 Finesse Finesse for low 02 sats Nasal l/min June Watkins cannula RN RN 15:39:43 Heparin Flush added 2 Finesse Finesse used for Bag to bags June Watkins procedure (1000units/500ml RN RN NS) 15:39:53 Lidocaine 2% added 20ml Finesse Finesse for local to vial June Watkins anesthetic field JUNG RN 15:57:48 Versed I.V. 2 mg Finesse Finesse for sedation June Watkins RN RN 15:57:57 Fentanyl I.V. 100 Finesse Finesse for sedation mcg June Watkins RN RN 16:03:34 Heparin Bolus I.V. 4000 Finesse Finesse for units June Watkins anticoagulation RN retention representative Log Time Note 15:19:11 Informed consent obtained and on chart 15:19:42 Procedure Status Urgent Heart Cath (IP). 15:19:43 Ger HUNG(R) sent for patient. Start room use. 15:19:44 Time tracking: Regular hours (M-F 7:00 - 5:00) 15:19:48 Plan of Care:Hemodynamics will remain stable., Cardiac rhythm will remain stable., Comfort level will be maintained., Respiratory function will remain adequate., Patient/ family verbilizes understanding of procedure., Procedure tolerated without complication., Recovers from procedure without complications.. 15:21:27 H&P Date Dictated: 04/05/2019 New H&P dictated by physician.. 15:21:42 Patient allergic to Other allergyAMLODIPINE 15:: Lab Result : BUN 20 mg/dl 15:: Lab Result : eGFR NONAFRICAN 63 ml/min 15:: Lab Result : Creatinine 0.9 mg/dl 15:: Lab Result : Hematocrit 34.1 % 15:: Lab Result : Hemoglobin 11 g/dl 15:25:41 Risk of Mortality: .3 15:25:46 Risk of blood transfusion: 6 15:25:49 Risk of ALEN: 3.2 15:27:45 Patient Weight : 136.69 lbs 15:27:48 Patient Height : 62.99 inches 15:27:53 Admit Source: Emergency department 15:29:51 Patient received from Med II to CCL 1 Alert and oriented. Tansferred to table in Supine position. 15:29:53 Warm blankets applied, and lizeth hugger turned on for patient comfort. 15:29:53 Correct patient and procedure confirmed by team. 15:29:54 ECG and BP/O2 sat monitors applied to patient. 15:34:14 Pre-procedure instructions explained to patient. 15:34:15 Pre-procedure instructions explained to patient. 15:34:16 Pre-op teaching completed and patient verbalized understanding. 15:34:20 Family unavailable. 15:34:22 Patient NPO since Midnight. 15:34:44 Is the patient allergic to Iodine/contrast media? No. 15:34:46 Was the patient premedicated? Yes 15:34:47 Is patient on blood thinner?Yes 15:34:51 ACC The patient was administered the following blood thiners within the last 24 hours: ACCPlavix 15:34:54 Patient diabetic? No. 15:34:56 If diabetic: On Metformin? N/A 15:34:59 Patient not . Patient is over age 55. 15:35:06 Previous problem with sedation/anesthesia? No ? 15:35:08 Snore? No 15:35:09 Sleep apnea? No 15:35:11 Deviated septum? No 15:35:12 Opens mouth fully? Yes 15:35:14 Sticks out tongue? Yes 15:35:18 Airway obstruction? Yes copd 15:35:22 Dentures? No ? 15:35:35 IV patent on arrival in left forearm with 0.9% NaCl at [facility]. 15:35:39 Pre procedure: right dorsailis pedis pulse 2+ Normal; easily identifiable; not easily obliterated 15:35:43 Patient pain scale 0/10 ?. 15:35:51 Lab results completed and on chart. 15:36:00 Stress Test: no; N/A ? 15:36:06 Right groin area was prepped with chlora-prep and draped in sterile fashion 15:36:08 Alarms reviewed by R. N. 15:36:08 Sharps counted by scrub and verified by R.N. 15:36:12 Vital chart was started 15:36:17 Baseline sample Acquired. 15:36:22 Rhythm: sinus rhythm 15:36:24 Full Disclosure recording started 15:36:33 ACC Patient presents with Stable Angina CCS Anginal Class 4--Inability to carry out any physical activity w/o angina. Angina may occur at rest. 15:36:46 Use device set Femoral Dx 15:36:48 ACIST Syringe (64529) opened to sterile field. 15:36:49 Bag Decanter (2002S) opened to sterile field. 15:36:53 Medline Cath Pack ([id number]) opened to sterile field. 15:36:54 ACIST Hand Control (97676) opened to sterile field. 15:36:55 ACIST Manifold (74456) opened to sterile field. 15:36:56 DIAGNOSTIC Multipack 5Fr catheter set (YA7520) opened to sterile field. 15:36:58 Tegaderm 4 x 4 (1626W) opened to sterile field. 15:37:00 SHEATH 5FR Gervais (JBV267) opened to sterile field. 15:37:01 EMERALD Guide Wire (795-249) opened to sterile field. 15:37:51 Diagnostic Cath Status : Elective 15:38:00 Indication : Angina 15:39:20 0.9% NaCl 100 ml/hr I.V. was administered by Finesse Watkins RN; Per physician; Verbal order read back and verified. 15:39:31 Oxygen 2 l/min etCO2 Nasal cannula was administered by Finesse Watkins RN; for low 02 sats; Verbal order read back and verified. 15:39:43 Heparin Flush Bag (1000units/500ml NS) 2 bags added to field was administered by Finesse Watkins RN; used for procedure; Verbal order read back and verified. 15:39:53 Lidocaine 2% 20ml vial added to field was administered by Finesse Watkins RN; for local anesthetic; Verbal order read back and verified. 15:53:25 --------ALL STOP TIME OUT------ 15:53:26 Final Timeout: patient, procedure, and site verified with staff and physician. All members of the team are in agreement. 15:53:29 Right groin site verified by team. 15:53:32 Fire Safety Assessment: A--An alcohol-based skin anteseptic being used preoperatively., C--Open oxygen or nitrous oxide is being used., D--An ESU, laser, or fiber-optic light is being used. 15:53:38 Physical assessment completed. ASA score P 2 - A patient with mild systemic disease as per Rodrick Moran MD. 15:53:45 2) 60-89 Mildly reduced kidney function, and other findings (as for stage 1) point to kidney disease. 15:53:50 Maximum allowable contrast dose (3.7 X eGFR X 0.75)175 ml. 15:53:55 Sedation plan: IV Moderate Sedation Medication:Versed, Fentanyl 15:57:17 Procedure started. 15:57:23 Local anesthetic to right femoral artery with Lidocaine 2% by Rodrick Moran MD.INITIAL ACCESS ONLY 15:57:48 Versed 2 mg I.V. was administered by Finesse Watkins RN; for sedation; Verbal order read back and verified. 15:57:57 Fentanyl 100 mcg I.V. was administered by Finesse Watkins RN; for sedation; Verbal order read back and verified. 15:58:24 A 5 Fr sheath was inserted into the Right Femoral artery 15:58:30 A MULTIPACK Pigtail 5 Fr catheter was advanced over the wire and used for Procedure. 15:58:39 LV gram done using DUNN 15:58:42 Injector settings: Ml/sec: 10, Volume: 20, 15:58:59 EF : 60 % 15:59:01 Catheter removed. 15:59:07 A MULTIPACK JL 4.0 5Fr catheter was advanced over the wire and used for Procedure. 15:59:35 LCA angiography performed. 16:01:09 Catheter removed. 16:01:14 A MULTIPACK 3DRC 5Fr catheter was advanced over the wire and used for Procedure. 16:01:59 RCA angiography performed. 16:02:01 ACCDominant side:Right 16:02:05 Catheter removed. 16:02:08 Proceeding to intervention. 16:02:49 SHEATH 6FR Gervais (GZK688) opened to sterile field. 16:03:05 Sheath upsized to a 6 Fr Short. 16:03:34 Heparin Bolus 4000 units I.V. was administered by Finesse Watkins RN; for anticoagulation; Verbal order read back and verified. 16:03:38 GUIDE 6FR EBU 3.5 catheter ([id number]) opened to sterile field. 16:03:45 CHOICE PT Extra Support 182cm wire ([id number]) opened to sterile field. 16:03:50 INFLATOR Merit BasixCompak (CA8095) opened to sterile field. 16:04:07 6 Fr EBU 3.5 guide catheter was inserted over the wire 16:04:15 CHOICE ES 182 wire advanced. 16:04:33 Wire advanced across lesion. 16:08:41 Inflate balloon Inflation number: 1 A EUPHORA 2.5 x 15 Balloon ([id number]) was prepped and advanced across the 1st Ob Batsheva , then inflated to 9 YAQUELIN for 0:00 (min:sec) . 16:08:59 Balloon removed over the wire. 16:09:59 Pre PCI Site: [place] OM1 has 95% stenosis. 16:10:49 Place stent Inflation Number: 2 A MICHELA RX 2.5 x 08 stent ([id number]) was prepped and advanced across the 1st Ob Batsheva . The stent was deployed at 13 YAQUELIN for 0:00 (min:sec) . 16:11:19 Stent catheter was removed intact over wire. 16:11:21 Wire removed. 16:11:21 Guide catheter removed. 16:12:09 EXOSEAL 6Fr (EX600) opened to sterile field. 16:12:15 Sheath removed intact; hemostasis achieved with Exoseal to the Right Femoral artery. 16:12:23 Procedure ended.(Physican Out) 16:12:28 Fluoroscopy time 07.10 minutes. 16:12:43 Contrast amount:Isovue 370 95ml. 16:12:47 Maximum allowable dose exceeded? No. 16:12:47 Sharps counted by scrub and verified by R.N. 16:14:01 Post-op/insertion site Right Femoral artery dressed using a 4 x 4 and Tegaderm. 16:14:07 Post right femoral artery:stable, soft, clean and dry 16:14:09 Post Procedure Pulses reassessed and unchanged 16:14:13 Post procedure: right dorsailis pedis pulse 2+ Normal; easily identifiable; not easily obliterated. 16:14:18 Post-procedure physical assessment completed. ASA score P 2 - A patient with mild systemic disease as per Rodrick Moran MD. 16:14:21 Post procedure rhythm: unchanged. 16:14:25 Estimated blood loss: 10 ml 16:14:27 Post procedure instruction explained to patient.Patient verbalizes understanding. 16:14:28 Patient needs reinforcement of post procedure teaching. 16:15:33 Procedure type changed to Cath procedure, Diagnostic procedure, LHC, C w/Coronaries, Sedation Charges, Moderate Sedation up to 15 minutes, PCI procedure, Coronary Stent, Coronary Stent Initial, Hemochron ACT Test 16:16:38 Procedure and supply charges have been captured, reviewed, submitted and are correct. 16:16:44 Procedure Complication : No complications 16:16:51 [facility] Findings: MVD- PCI performed (see procedure note) 16:16:54 Operative report dictated upon procedure completion. 16:16:55 See physician's report for complete and final results. 16:16:59 Report given to [facility]. 16:17:04 Patient transfered to [facility] with Bed. 16:17:49 ACT drawn and resulted at 194 seconds. (normal therapeutic range 180-240 seconds). 16:17:58 Vital chart was stopped 16:18:57 Procedure ended. 16:18:57 Full Disclosure recording stopped 16:19:04 ACC-PCI Only Patient was given prescriptions, or instructed by Rodrick Moran MD to start/continue the following medications upon discharge: Plavix 16:19:06 End room use (Document Last) Intervention Summary Intervention Notes Time ActionType Lesion and Equipment Used Action# Pressure Duration Attributes 16:08:41 Inflate 1st Ob Batsheva EUPHORA 2.5 x 1 9 00:00 balloon 15 Balloon ([id number]) 16:10:49 Place stent 1st Ob Batsheva MICHELA RX 2.5 x 2 13 00:00 08 stent ([id number]) Device Usage Item Name Manufacture Quantity Catalog Number Hospital Part Current M inimal Lot# / Charge Number Stock Stock Serial# Code ACIST Syringe Acist 1 22182 576143 582667 917672 2 0 (47808) Medical Systems Inc Bag Decanter Microtek 1 892514 71561 596805 5 () Medical Inc. Medline Cath Medline 1 [id number] 834359 39303 278251 5 Pack ([id number]) ACIST Hand Acist 1 80992 737796 180171 878158 5 Control Medical (44166) Systems Inc ACIST Manifold Acist 1 28659 273061 770552 760148 5 (11516) Medical Systems Inc DIAGNOSTIC Cardinal 1 AU2366 807645 53084 009392 3 0 Multipack 5Fr Health catheter set (TK0560) Tegaderm 4 x 4 3M 1 1626W 497462 134373 820592 5 (1626W) SHEATH 5FR Terumo 1 OBF832 926202 703544 649300 5 Gervais (XKQ050) EMERALD Guide Cardinal 1 502-455 716712 624201 525862 5 Wire (502-455) Health MULTIPACK Cardinal 1 201038 5 Pigtail 5 Fr Health catheter MULTIPACK JL Cardinal 1 352700 5 4.0 5Fr Health catheter MULTIPACK 3DRC Cardinal 1 067260 5 5Fr catheter Health SHEATH 6FR Terumo 1 EGQ420 929160 106771 416048 4 0 Gervais (EPJ875) GUIDE 6FR EBU Medtronic 1 [id number] 792338 95384 379417 3 3.5 catheter (WK1COE87) CHOICE PT Hasty 1 [id number] 008395 881804 728359 5 Extra Support Scientific 182cm wire ([id number]) INFLATOR Merit Merit 1 JR4031 984125 783009 517390 1 5 Gamblit Gaming (QV9031) EUPHORA 2.5 x Medtronic 1 [id number] 227580 787669 478937 5 [id number] 15 Balloon ([id number]) MICHELA RX 2.5 x Medtronic 1 [id number] 101223 0326952 374135 5 [id number] 08 stent ([id number]) EXOSEAL 6Fr Cardinal 1 EX600 114550 968083 420914 1 0 (EX600) Health Signature Audit [place] Stage Time Signature Unsigned Intra-Procedure 04/05/2019 Marsha Au 4:20:01 PM RT(R) Intra-Procedure 04/05/2019 Finesse 4:20:49 PM June JUNG Intra-Procedure 04/05/2019 Rodrick Moran 4:21:08 PM [place] [address] [place] [address]
--- NOTE | ~2019-04-03 | OP ---
PATIENT NAME: DENAE HALLMAN MEDICAL RECORD: [id number] :35 LOCATION:D.M2 D.2121 ADMISSION DATE:04/03/19 SURGEON: AMY OSBORNE MD DATE OF OPERATION: 04/05/2019 PROCEDURE: 1. PTCA stent left circumflex first obtuse marginal. 2. Left heart catheterization. 3. Selective coronary angiography. 4. Left ventriculogram. INDICATION: Unstable angina and coronary artery disease. PROCEDURE IN DETAIL: After informed consent was obtained and after a detailed description of the risks, benefits as well as alternative therapies, the patient elected to proceed with angiogram and angioplasty. The right femoral area was prepped and draped in normal sterile fashion. Right femoral artery was cannulated via modified Seldinger technique with placement of 6-Czech sheath. All catheters exchanged through this sheath. FINDINGS: The left ventriculogram was performed in standard 30-degree DUNN view, reveals good cardiac wall motion, ejection fraction estimated at 55%. SELECTIVE CORONARY ANGIOGRAPHY: 1. Left main showed no significant angiographic disease. 2. Left anterior descending has previously placed stent. This is widely patent with no significant restenosis. No disease elsewise throughout the LAD or its branches. 3. Left circumflex has a previously placed stent in the first obtuse marginal; however, proximal to this, there is 95% stenosis. 4. The right coronary artery has moderate irregularities, but no flow-limiting stenosis. Previously placed stents are widely patent. PTCA stent of the left circumflex first obtuse marginal stent used was a 2.5 x 8 mm Pradeep. Result was 0% residual stenosis. OVERALL IMPRESSION: Successful percutaneous transluminal angioplasty stent of the left circumflex going from 95% initial stenosis to 0% residual. TRANSINT:[id number] Voice Confirmation ID: [id number] DOCUMENT ID: [id number] AMY OSBORNE MD CC: [id number] DICTATION DATE: 04/05/19 1617 ADJUNCT PROFESSOR OF VOICE: 04/05/19 181 [place] [address]
[~2019-04-03 21:11] MED LIST changes: +PRAVACHOL20 MG PO
[2019-04-03] MEDS ORDERED: [UNRECOGNIZED DRUG - REMARK] (21:21)
--- NOTE | 2019-04-03 21:43 | NUR ---
RT AT PT BEDSIDE
[2019-04-03 22:01] LABS: BASOPHILS 0.3 % (0-2); EOSINOPHILS 3.7 % (0-7); HEMATOCRIT 33.4 % (36.0-48.0); HEMOGLOBIN 10.6 g/dL (12-16); IMMATURE GRANULOCYTES 0.3 % (0-5); LYMPHOCYTES 32.7 % (15-50); MCH 32.5 pg (26.0-34.0); MCHC 31.7 g/dL (31.0-37.0); MCV 102.5 fL (80.0-100.0); MEAN PLATELET VOLUME 9.8 fL (7.4-10.4); MONOCYTES 8.1 % (2-11); NEUTROPHILS 54.9 % (40-80); PLATELET COUNT 239 10x3/uL (130-400); RBC 3.26 10x6/uL (4.00-5.40); RDW 17.3 % (11.5-14.5); WBC 6.8 10x3/uL (4.8-10.8)
[2019-04-03 22:10] LABS: APTT 24.3 SECONDS (22.8-39.4); INR 0.95 (0.85-1.17); PROTIME 12.2 SECONDS (11.6-15.0)
[2019-04-03 22:13] LABS: CALC OSMOLALITY 285 mosm/kg (275-300); CALCIUM 8.7 mg/dL (8.5-10.1); CARBON DIOXIDE 25.4 mmol/L (21.0-32.0); CHLORIDE - SERUM 108 mmol/L (98-107); CREATININE - SERUM 0.8 mg/dL (0.6-1.3); GLUCOSE 112 mg/dL (74-106); POTASSIUM - SERUM 3.5 mmol/L (3.5-5.1); SODIUM 141 mmol/L (136-145); UREA NITROGEN 25 mg/dL (7-18); eGFR NON AFRICAN AMERICAN 72 mL/min (90-120)
--- NOTE | 2019-04-03 22:17 | NUR ---
PT AND DAUGHTER UPDATED ON PLAN OF CARE.
[2019-04-03 22:33] LABS: ALBUMIN 2.9 g/dL (3.4-5.0); ALKALINE PHOSPHATASE 63 U/L (46-116); ALT (SGPT) 13 U/L (10-68); BILIRUBIN - TOTAL 0.25 mg/dL (0.2-1.3); CKMB 0.7 U/L (0.0-3.6); CREATINE KINASE 29 UL (21-215); PRO BNP 549 pg/mL (0-450); PROTEIN - SERUM 6.6 g/dL (6.4-8.2)
[2019-04-03 22:34] LABS: TROPONIN-I < 0.017 ng/mL (0.000-0.060)
[2019-04-03] MEDS ORDERED: COZAAR25 MG PO (22:42)
[2019-04-03] MEDS ORDERED: NORVASC5 MG PO (22:42)
[2019-04-03] MEDS ORDERED: BREO ELLIPTA 11 EACH INH (22:42)
--- NOTE | 2019-04-03 22:45 | NUR ---
PT RATES PAIN 8/10, 1 NTG ADMINISTERED AT THIS TIME.
--- NOTE | 2019-04-03 22:55 | NUR ---
PT REPORTS DECREASE IN PAIN TO 6/10. SECOND NTG ADMINISTERED.
--- NOTE | 2019-04-03 23:08 | NUR ---
PT ARRIVED VIA STRETCHER FROM ER WITH DX CP. NO DISTRESS NOTED.
--- NOTE | 2019-04-03 23:28 | NUR ---
ASSISTED PT TO BR. VOIDED 200 CC OF YELLOW URINE. ASSISTED BACK TO BED. NON-SLIP SOCKS ON PT. GAIT EVENA ND STEADY. EXPLAINED RATIONALE WHY PT IS A RISK TO FALL. PT STATED UNDESTANDING. O2 2LNC. SR UP X2, CALL LIGHT WITHIN REACH AND BED ALARM ON.
[2019-04-03 23:41] VITALS: BP 160/62; BMI 24.1
--- NOTE | 2019-04-04 00:13 | NUR ---
ADMISSION ASSESSMENT, HISTORY AND HOME MED LIST COMPLETED. SR PER CM. VSS. O2 2LNC. ALERT AND ORIENTED TO PERSON, PLACE AND TIME. HOWELL. IV TO L WRIST SL. STATES CP NOW 08/12. DECLINES OFFER FOR NITRO. BRUISES NOTED TO ALL 4 EXTREMITIES. ASSISTED PT TO BR. VOIDED 250CC OF URINE. ASSISTED BACK TO BED. SR UP X2, CALL LIGHT WITHIN REACH AND BED ALARM ON.
--- NOTE | 2019-04-04 02:01 | NUR ---
PT RESTING WITH EYES CLOSED. RESP EVEN AND REGULAR. SR UP X2, CALL LIGHT WITHIN REACH AND BED ALARM ON.
--- NOTE | 2019-04-04 04:10 | NUR ---
PT RESTING WITH EYES CLOSED. RESP EVEN AND REGULAR. SR UP X2, CALL LIGHT WITHIN REACH AND BED ALARM ON.
[2019-04-04 04:46] VITALS: BP 147/52
[2019-04-04 06:29] LABS: CKMB 0.9 U/L (0.0-3.6); CREATINE KINASE 37 UL (21-215); TROPONIN-I < 0.017 ng/mL (0.000-0.060)
--- NOTE | 2019-04-04 06:48 | NUR ---
PT RESTED WELL DURING SHIFT. AWAITING CARDIOLOGY. NEEDS MET; WILL CONTINUE TO MONITOR.
--- NOTE | 2019-04-04 07:37 | NUR ---
ALERT AND ORIENTED. DENIES ANY CHEST PAIN. TELEMERTY SHOWS SR 62. O2 AT 2 L/M PER NC. LEFT WRIST SL. C/O RESTLESS LEGS. SR UP WITH CALL LIGHT IN REACH
[2019-04-04 08:00] VITALS: BP 174/72
[2019-04-04 11:09] LABS: CKMB 1.3 U/L (0.0-3.6); CREATINE KINASE 32 UL (21-215)
[2019-04-04 11:10] LABS: TROPONIN-I < 0.017 ng/mL (0.000-0.060)
[2019-04-04 11:47] VITALS: Ht 160 cm; Wt 61.9 kg
[2019-04-04 12:00] VITALS: BP 172/68
--- NOTE | 2019-04-04 15:23 | NUR ---
LYING QUIETLY WITH EYES CLOSED. NO DISTRESS NOTED. SR UP WITH CALL LIGHT IN REACH. WILL MONITOR
[2019-04-04 16:00] VITALS: BP 119/50
--- NOTE | 2019-04-04 19:59 | NUR ---
INITIAL ROUNDS COMPLETED AT 1910 HRS. PT DENIED ANY DISCOMFORT. ASESSMENT COMPLETED AT 1940 HRS. SR PER CM HR 70. ALERT AND ORIENTED TO PERSON, PLACE AND TIME. HOWELL. IV TO L WRIST SL. O2 2LNC PRN. SR UP X2, CALL LIGHT WITHIN REACH.
[2019-04-04 20:30] VITALS: BP 133/57
--- NOTE | 2019-04-04 21:38 | NUR ---
PM MEDS GIVEN. PT DENIES ANY DISCOMFORT. SR UP X2, CALL LIGHT WITHIN REACH.
[2019-04-05 00:13] VITALS: BP 135/57
--- NOTE | 2019-04-05 00:47 | NUR ---
PT RESTING WITH EYES CLOSED. RESP EVEN AND REGULAR. SR UP X2,CALL LIGHT WITHIN REACH.
--- NOTE | 2019-04-05 02:26 | NUR ---
PT RESTING WITH EYES CLOSED. RESP EVEN AND REGULAR. SR UP X2, CALL LIGHT WITHIN REACH.
--- NOTE | 2019-04-05 04:16 | NUR ---
HIBICLENS SHOWER DONE. PT CLIPPED PER ORDERS. NO DISTRESS NOTED.
[2019-04-05 04:26] VITALS: BP 143/70
--- NOTE | 2019-04-05 06:06 | NUR ---
VSS THROUGHOUT NIGHT. SR PER CM. PT DENIED ANY DISCOMFORT. NEEDS MET; WILL CONTINUE TO MONITOR.
[2019-04-05 06:32] LABS: ANION GAP 9.6 mmol/L (8-16); BASOPHILS 0.2 % (0-2); CALCIUM 8.8 mg/dL (8.5-10.1); CARBON DIOXIDE 28.7 mmol/L (21.0-32.0); CREATININE - SERUM 0.9 mg/dL (0.6-1.3); EOSINOPHILS 2.9 % (0-7); HEMATOCRIT 34.1 % (36.0-48.0); IMMATURE GRANULOCYTES 0.3 % (0-5); LYMPHOCYTES 19.7 % (15-50); MAGNESIUM - SERUM 1.7 mg/dL (1.8-2.4); MCH 32.8 pg (26.0-34.0); MCHC 32.3 g/dL (31.0-37.0); MCV 101.8 fL (80.0-100.0); MEAN PLATELET VOLUME 10.1 fL (7.4-10.4); MONOCYTES 6.8 % (2-11); NEUTROPHILS 70.1 % (40-80); PLATELET COUNT 247 10x3/uL (130-400); POTASSIUM - SERUM 3.3 mmol/L (3.5-5.1); RBC 3.35 10x6/uL (4.00-5.40); RDW 17.2 % (11.5-14.5); WBC 6.5 10x3/uL (4.8-10.8)
--- NOTE | 2019-04-05 07:32 | NUR ---
PT RESTING. RR EVEN AND UNLABORED. DENIES NEEDS OR PAIN AT THIS TIME. CALL LIGHT WITHIN REACH. BED INLOWEST POSITION. LEFT WRIST IV NOTED, SL. WILL CONTINUE TO MONITOR.
--- NOTE | 2019-04-05 09:34 | NUR ---
I have reviewed this patient and I concur with the Shift Assessment completed by the Licensed Practical Nurse today this shift.
[2019-04-05 10:42] VITALS: BP 123/89
[2019-04-05 13:34] VITALS: BP 155/62
--- NOTE | 2019-04-05 15:27 | NUR ---
PT LEFT TO ELECTRICIAN FRONT VIA BED
[2019-04-05 20:35] VITALS: BP 114/63
[2019-04-06 00:30] VITALS: BP 162/60
--- NOTE | 2019-04-06 01:09 | NUR ---
RESTING WITH EYES CLOSED, RESPERATIONS EVEN, NO S/S DISTRESS NOTED.
[2019-04-06 04:30] VITALS: BP 147/61
[2019-04-06 06:57] LABS: BASOPHILS 0.2 % (0-2); EOSINOPHILS 2.8 % (0-7); HEMATOCRIT 32.4 % (36.0-48.0); HEMOGLOBIN 10.4 g/dL (12-16); IMMATURE GRANULOCYTES 0.4 % (0-5); LYMPHOCYTES 21.7 % (15-50); MCH 32.6 pg (26.0-34.0); MCHC 32.1 g/dL (31.0-37.0); MCV 101.6 fL (80.0-100.0); MEAN PLATELET VOLUME 10.1 fL (7.4-10.4); MONOCYTES 8.5 % (2-11); NEUTROPHILS 66.4 % (40-80); PLATELET COUNT 233 10x3/uL (130-400); RBC 3.19 10x6/uL (4.00-5.40); RDW 17.2 % (11.5-14.5); WBC 5.6 10x3/uL (4.8-10.8)
[2019-04-06 07:00] LABS: ANION GAP 12.3 mmol/L (8-16); CALCIUM 8.4 mg/dL (8.5-10.1); CARBON DIOXIDE 26.4 mmol/L (21.0-32.0); CREATININE - SERUM 0.9 mg/dL (0.6-1.3); MAGNESIUM - SERUM 1.6 mg/dL (1.8-2.4); POTASSIUM - SERUM 3.7 mmol/L (3.5-5.1)
--- NOTE | 2019-04-06 07:25 | NUR ---
ASSESSMENT DONE. DENIES NEEDS
--- NOTE | 2019-04-06 08:02 | MORECARE ---
CASE MANAGEMENT DISCHARGE SUMMARY PATIENT: DENAE HALLMAN UNIT: [id number] ADM DATE: 04/03/19 AGE: 83 : 35 SEX: F ROOM/BED: D.2122 AUTHOR: KRYS CAMPOS PHYSICIAN: REFERRING PHYSICIAN: HIALY DAVIS MD DATE OF SERVICE: 04/06/19 Discharge Plan Patient Name: DENAE HALLMAN [facility] [facility] 1935 Planned Disposition: Home Anticipated Discharge Date: 04/06/19 Discharge Date: Expected LOS: 3 Initial Reviewer: [email or web address] Initial Review Date: 04/06/2019 Generated: 04/06/19 9:02 am Coverage Notice Reviewer: [email or web address] Nehal Krishnan Notice Issued Date-Time: 04/04/2019 17:27 Notice Type: Medicare Outpatient Observation Notice Notice Delivered To: Family Member Relationship to Patient: Daughter Shape Hand Name: Juliann Borja Delivery Method: HAND - Hand Delivered Gabbie Days: Prior Verbal Notification: Recipient Understood Notice: Yes Recipient Signature: Yes Med Rec Note Co-signed by Attending: Coverage Notice Comment: HART delivered to daughter and patient. Signed by daughter. Original given to patient and also placed on chart. Patient Name: DENAE HALLMAN Page [phone] at 0802 All edits/amendments must be made on the electronic document DICTATION DATE: 04/06/19 0802 MICROBIOLOGY SOIL SCIENTIST: MIGUEL 04/06/19 0802 RPT#: [id number] DC DATE: STATUS: ADM IN [facility] [address] [place] [address] END OF REPORT
[2019-04-06 09:24] VITALS: BP 137/58
--- NOTE | 2019-04-06 10:00 | NUR ---
I have reviewed this patient and I concur with the Shift Assessment completed by the Licensed Practical Nurse today this shift.
--- NOTE | 2019-04-06 11:45 | NUR ---
DC GIVEN TO PT
--- NOTE | 2019-04-06 12:30 | NUR ---
DC HOME PER PERSONAL CAR
--- NOTE | 2019-04-07 07:35 | MORECARE ---
CASE MANAGEMENT DISCHARGE SUMMARY PATIENT: DENAE HALLMAN UNIT: [id number] ADM DATE: 04/03/19 AGE: 83 : 35 SEX: F ROOM/BED: D.715 AUTHOR: KRYS CAMPOS PHYSICIAN: REFERRING PHYSICIAN: HAILY DAVIS MD DATE OF SERVICE: 04/07/19 Discharge Plan Patient Name: DENAE HALLMAN [facility] [facility] 1935 Planned Disposition: Home Anticipated Discharge Date: 04/06/19 Discharge Date: 04/06/2019 Expected LOS: 3 Initial Reviewer: [email or web address] Initial Review Date: 04/07/2019 Generated: 04/07/19 8:35 am Coverage Notice Reviewer: [email or web address] Nehal Krishnan Notice Issued Date-Time: 04/04/2019 17:27 Notice Type: Medicare Outpatient Observation Notice Notice Delivered To: Family Member Relationship to Patient: Daughter Gift Packer Name: Juliann Borja Delivery Method: HAND - Hand Delivered Gbabie Days: Prior Verbal Notification: Recipient Understood Notice: Yes Recipient Signature: Yes Med Rec Note Co-signed by Attending: Coverage Notice Comment: HART delivered to daughter and patient. Signed by daughter. Original given to patient and also placed on chart. Last DP export: 04/06/19 7:03 a Patient Name: DENAE HALLMAN Page [phone] at 0735 All edits/amendments must be made on the electronic document DICTATION DATE: 04/07/19733 PUMP MECHANIC: MIGUEL 04/07/19733 RPT#: [id number] DC DATE:04/06/19 STATUS: DIS IN [facility] [address] [place] [address] END OF REPORT
== END 2019-04-06 12:30 | disposition home or self-care (01) ==
LOC: D.ER 21:11 → D.M2 22:04 → OBSVTIME 22:04 → D.M2 04-06 12:30
PROVIDERS: Emergency Medicine; Internal Medicine Nephrology; ADMIT Family Medicine; ATTEND Family Medicine
DX: I25.110 Atherosclerotic heart disease of native coronary artery with unstable angina pectoris (principal); D53.9 Nutritional anemia, unspecified; E87.6 Hypokalemia; E83.42 Hypomagnesemia; N17.9 Acute kidney failure, unspecified; E78.5 Hyperlipidemia, unspecified; I10 Essential (primary) hypertension; J44.9 Chronic obstructive pulmonary disease, unspecified; K21.9 Gastro-esophageal reflux disease without esophagitis
CPT/HCPCS: 93458; C9600

== ENCOUNTER 2019-05-02 13:04 | Inpatient (IN) | payer MEDICARE, BC ==
[~2019-05-02] VITALS: Ht 160 cm; Wt 66.4 kg
--- NOTE | ~2019-05-02 | OP ---
PATIENT NAME: DENAE HALLMAN MEDICAL RECORD: [id number] :35 LOCATION:D.M2 D.2135 ADMISSION DATE:05/03/19 SURGEON: AMY OSBORNE MD DATE OF OPERATION: 05/03/2019 PROCEDURES: 1. PTCA stent RCA PDA. 2. Left heart catheterization. 3. Selective coronary angiography. 4. Left ventriculogram. INDICATION: Unstable angina and coronary artery disease. PROCEDURE IN DETAIL: After informed consent was obtained and after a detailed description of the risks, benefits as well as alternative therapies, the patient elected to proceed with angiogram and angioplasty. The right radial area was prepped and draped in normal sterile fashion. Right radial artery was cannulated via modified Seldinger technique with placement of 6-Guamanian sheath. All catheters exchanged through this sheath. FINDINGS: Left ventriculogram was performed in standard 30-degree DUNN view, reveals good cardiac wall motion, ejection fraction estimated at 60%. SELECTIVE CORONARY ANGIOGRAPHY: 1. Left main has no significant angiographic disease. 2. Left anterior descending has previously placed stents that are widely patent with no significant restenosis. No disease elsewise at the LAD or its branches. 3. Left circumflex has previously placed stents that are widely patent with no significant restenosis noted. No disease elsewise throughout the circumflex or its branches. 4. The right coronary has a PDA that has 90% hazy stenosis at the ostium throughout. PTCA STENT OF THE RIGHT PDA: The stent used was a 2.5 x 8 mm [place] taken to 23 atmospheres. Result was 0% residual stenosis. OVERALL IMPRESSION: Successful percutaneous transluminal coronary angioplasty stent of the right coronary artery, posterior descending artery going from 90% initial stenosis to 0% residual. TRANSINT:[id number] Voice Confirmation ID: [id number] DOCUMENT ID: [id number] AMY OSBORNE MD CC: [id number] DICTATION DATE: 05/03/19 1656 DAIRY MANUFACTURING TECHNOLOGIST: 05/04/19 0015 ADM IN [place] [id number] [place] [address]
--- NOTE | ~2019-05-02 | HEMODYNAMI ---
PATIENT:DENAE HALLMAN MEDICAL RECORD: [id number] : 35 LOCATION:[address] ADMISSION DATE: 05/02/19 Generatedon:05/03/201916:58 Patient name: DENAE HALLMAN Patient #: [id number] : 1935 Date of study: 05/03/2019 Page: Of Hemodynamic Procedure Report Patient Data Patient Demographics Procedure consent was obtained First Name: DENAE Gender: Female Last Name: LEXX : 1935 [facility] Initial: Diomedes Age: 83 year(s) Patient #: [id number] Race: SSN: [id number] Additional ID: [id number] Contact details [address]: [address] [place] [address] State: [place] City: [place] Zip code: [address] Past Medical History History of disease Date Diagnosis Comments CAD Allergies Allergen Reaction Date Comments Reported Other allergy 04/05/2019 AMLODIPINE Admission Admission Data Admission Date: 05/02/2019 Admission Time: 14:13 Room #: D.2135 Procedure Procedure Types Cath Procedure Diagnostic Procedure C [facility] w/Coronaries Sedation Charges Moderate Sedation up to 15 minutes PCI Procedure Coronary Stent Coronary Stent Initial Hemochron ACT Test Procedure Description Procedure Date Procedure Date: 05/03/2019 Procedure Start Time: 16:40 Procedure End Time: 16:56 Procedure Staff Name Function Rodrick Moran MD Performing Physician Monica Amato RT Monitor Vania Bobby RT Scrub Abram Scott RN Nurse Procedure Data Cath Procedure Fluoroscopy Diagnostic fluoroscopy Total fluoroscopy Time: 3 time: 3 min min Diagnostic fluoroscopy Total fluoroscopy dose: 526 dose: 526 mGy mGy Contrast Material Contrast Material Type Amount (ml) Isovue 300 86 Entry Location Entry Primary Successful Side Size Upsize Upsize Entry Closure Rhodes ccessful Closure Location (Fr) 1 (Fr) 2 (Fr) Remarks Device Remarks Radial Right 6 Fr Mechanical artery Short Compression Estimated blood loss: 10 ml Diagnostic catheters Device Type Used For End Catheter Placement DIAGNOSTIC Marquette 110cm 5 Procedure Fr catheter ([id number]) Procedure Complications No complications Procedure Medications Medication Administration Route Dosage Oxygen etCO2 Nasal cannula 2 l/min Lidocaine 2% added to field 20 Heparin Flush Bag added to field 2 bags (1000units/500ml NS) 0.9% NaCl I.V. 100 ml/hr Heparin Bolus I.V. 4000 units Versed I.V. 1 mg Fentanyl I.V. 25 mcg Versed I.V. 0.5 mg Radial Cocktail I.A. 1 syringe (Verapamil 2mg/Nitro 400mcg/Heparin 1500units) Hemodynamics Rest Heart Rate: 73 (bpm) Snapshots Pre Cath Intra NCS Post Cath Vital Signs Time Heart Resp SPO2 etCO2 NIBP (mmHg) Rhythm Pain Sedation Rate (ipm) (%) (mmHg) Status Level (bpm) 16:24:23 68 19 96 0 No Cuff NSR 0 (11) 10(A) , No pain 16:36:09 67 18 97 29.2 136/76(114) NSR 0 (11) 10(A) , No pain 16:40:15 64 16 97 28.5 149/74(121) NSR 0 (11) 9(A) , No pain 16:44:31 69 15 95 29.9 119/57(81) NSR 0 (11) 9(A) , No pain 16:48:37 62 14 95 31.5 137/59(91) NSR 0 (11) 9(A) , No pain 16:52:47 69 14 97 32.2 144/65(117) NSR 0 (11) 10(A) , No pain Medications Time Medication Route Dose Verified Delivered Reason Not es Effectiveness by by 16:20:52 Oxygen etCO2 2 l/min Rodrick Valverde used for Nasal Luisa Scott RN procedure cannula 16:31:12 Versed I.V. 1 mg Rodrick Valverde for sedation Liusa Scott RN 16:31:20 Fentanyl I.V. 25 mcg Rodrick Valverde for sedation Luisa Scott RN 16:35:58 Lidocaine 2% added 20ml Rodrick Mensah for local to vial Luisa Moran MD anesthetic field 16:36:03 Heparin Flush added 2 bags Rodrick Mensah used for Bag to Luisa Moran MD procedure (1000units/500ml field NS) 16:36:11 0.9% NaCl I.V. 100 Rodrick Buffie Per physician ml/hr Luisa Scott RN 16:40:19 Versed I.V. 0.5 mg Rodrick Valverde for sedation Luisa Scott RN 16:41:37 Radial Cocktail I.A. 1 Rodrick grewal (Verapamil syringe Luisa Moran MD vasodilation 2mg/Nitro 400mcg/Heparin 1500units) 16:48:09 Heparin Bolus I.V. 4000 Rodrick grewal benjie ified units Luisa Scott RN anticoagulation with dr moran Procedure Log Time Note 16:10:23 Monica Suur RT(R) sent for patient. Start room use. 16:19:59 Diagnostic Cath Status : Urgent 16:20:24 Time tracking: Regular hours (M-F 7:00 - 5:00) 16:20:28 Plan of Care:Hemodynamics will remain stable., Cardiac rhythm will remain stable., Comfort level will be maintained., Respiratory function will remain adequate., Patient/ family verbilizes understanding of procedure., Procedure tolerated without complication., Recovers from procedure without complications.. 16:20:42 Patient received from Med II to [facility] 2 Alert and oriented. Tansferred to table in Supine position. 16:20:45 Signed procedure consent form obtained from patient. 16:20:46 Warm blankets applied, and lizeth hugger turned on for patient comfort. 16:20:48 Correct patient and procedure confirmed by team. 16:20:49 ECG and BP/O2 sat monitors applied to patient. 16:20:52 Oxygen 2 l/min etCO2 Nasal cannula was administered by Abram Scott RN; used for procedure; Verbal order read back and verified. 16:23:34 Vital chart was started 16:23:35 Baseline sample Acquired. 16:23:39 Rhythm: sinus rhythm 16:23:41 Full Disclosure recording started 16:23:44 H&P Date Dictated: 05/03/2019 New H&P dictated by physician.. 16:23:45 Pre-procedure instructions explained to patient. 16:23:46 Pre-op teaching completed and patient verbalized understanding. 16:23:48 Family unavailable. 16:23:49 Patient NPO since Midnight. 16:23:51 Is the patient allergic to Iodine/contrast media? No. 16:23:52 Was the patient premedicated? Yes 16:23:53 Is patient on blood thinner?Yes 16:23:55 ACC The patient was administered the following blood thiners within the last 24 hours: ACCPlavix 16:23:58 Patient diabetic? No. 16:24:01 Previous problem with sedation/anesthesia? No ? 16:24:03 Snore? Yes 16:24:03 Sleep apnea? No 16:24:04 Deviated septum? No 16:24:05 Opens mouth fully? Yes 16:24:06 Sticks out tongue? Yes 16:24:09 Airway obstruction? Yes copd 16:24:12 Dentures? No ? 16:24:15 Pre procedure: right dorsailis pedis pulse 1+ Palpable, but thready & weak; easily obliterated 16:24:17 Pre procedure: left dorsailis pedis pulse 1+ Palpable, but thready & weak; easily obliterated 16:24:19 Patient pain scale 0/10 ?. 16:24:33 IV started by Abram Scott RN inleft forearm with a 20 gauge IV catheter with 0.9% NaCl at O. 16:24:36 Lab results completed and on chart. 16:24:40 Risk of Mortality: 4.1 16:24:56 Risk of blood transfusion: 13.7 16:24:59 Risk of ALEN: 12.3 16:25:06 Right Radial & Right Groin area was prepped with chlora-prep and draped in sterile fashion 16:25:06 Alarms reviewed by R. N. 16:25:07 Sharps counted by scrub and verified by R.N. 16:25:26 Physician arrived 16:25:26 --------ALL STOP TIME OUT------ 16:25:27 Final Timeout: patient, procedure, and site verified with staff and physician. All members of the team are in agreement. 16:25:29 Right Radial & Right Groin site verified by team. 16:25:32 Fire Safety Assessment: A--An alcohol-based skin anteseptic being used preoperatively., C--Open oxygen or nitrous oxide is being used., D--An ESU, laser, or fiber-optic light is being used. 16:25:34 Physical assessment completed. ASA score P 2 - A patient with mild systemic disease as per Rodrick Moran MD. 16:25:40 2) 60-89 Mildly reduced kidney function, and other findings (as for stage 1) point to kidney disease. 16:25:50 Maximum allowable contrast dose (3.7 X eGFR X 0.75)199 ml. 16:25:55 Sedation plan: IV Moderate Sedation Medication:Versed, Fentanyl 16:31:12 Versed 1 mg I.V. was administered by Abram Scott RN; for sedation; Verbal order read back and verified. 16:31:20 Fentanyl 25 mcg I.V. was administered by Abram Scott RN; for sedation; Verbal order read back and verified. 16:31:39 Use device set Radial Dx or PCI 16:31:41 ACIST Syringe (34941) opened to sterile field. 16:31:41 Medline Cath Pack ([id number]) opened to sterile field. 16:31:42 Bag Decanter (2002) opened to sterile field. 16:31:42 ACIST Hand Control (13210) opened to sterile field. 16:31:43 ACIST Manifold (69060) opened to sterile field. 16:31:43 Tegaderm 4 x 4 (1626W) opened to sterile field. 16:31:44 MBrace Wrist Support ([id number]) opened to sterile field. 16:31:47 EMERALD Guide Wire (760-847) opened to sterile field. 16:31:48 SHEATH 6FR RAIN (0222636) opened to sterile field. 16:35:58 Lidocaine 2% 20ml vial added to field was administered by Rodrick Moran MD; for local anesthetic; Verbal order read back and verified. 16:36:03 Heparin Flush Bag (1000units/500ml NS) 2 bags added to field was administered by Rodrick Moran MD; used for procedure; Verbal order read back and verified. 16:36:11 0.9% NaCl 100 ml/hr I.V. was administered by Abram Scott RN; Per physician; Verbal order read back and verified. 16:40:03 Procedure started. 16:40:09 Local anesthetic to right radial artery with Lidocaine 2% by Rodrick Moran MD.INITIAL ACCESS ONLY 16:40:17 A 6 Fr Short sheath was inserted into the Right Radial artery 16:40:19 Versed 0.5 mg I.V. was administered by Abram Scott RN; for sedation; Verbal order read back and verified. 16:40:22 J wire advanced. 16:40:46 A DIAGNOSTIC Marquette 110cm 5 Fr catheter (404555) was advanced over the wire and used for Procedure. 16:40:52 LV angiography performed. 16:41:37 Radial Cocktail (Verapamil 2mg/Nitro 400mcg/Heparin 1500units) 1 syringe I.A. was administered by Rodrick Moran MD; for vasodilation; Verbal order read back and verified. 16:43:07 EF : 65 % 16:43:10 LCA angiography performed. 16:45:34 RCA angiography performed. 16:45:36 Catheter removed. 16:46:53 INFLATOR Merit BasixCompak (QC3069) opened to sterile field. 16:46:54 Davis Verrata Plus pressure wire (13114T) opened to sterile field. 16:46:55 GUIDE 6FR AR 2.0 catheter (BF5IO10) opened to sterile field. 16:46:56 CHOICE PT Extra Support 182cm wire ([id number]) opened to sterile field. 16:47:29 6 Fr AR2 guide catheter was inserted over the wire 16:47:34 choice pt wire advanced. 16:47:44 Wire advanced across lesion. 16:48:09 Heparin Bolus 4000 units I.V. was administered by Abram Scott RN; for anticoagulation; verified with dr moran Verbal order read back and verified. 16:48:10 Pre PCI Site: [place] dRCA has 90% stenosis. 16:49:57 Place stent Inflation Number: 1 A MICHELA RX 2.5 x 08 stent ([id number]) was prepped and advanced across the Dist RCA 90. The stent was deployed at 15 YAQUELIN for 0:05 (min:sec) . 16:50:03 ACT drawn and resulted at 273 seconds. (normal therapeutic range 180-240 seconds). 16:50:05 Wire removed. 16:50:06 Guide catheter removed. 16:53:04 Sheath removed intact; hemostasis achieved with Mechanical Compression to the Right Radial artery. 16:53:16 ZEPHYR REGULAR TR BAND (521884) opened to sterile field. 16:53:19 Procedure ended.(Physican Out) 16:53:30 Fluoroscopy time 03.00 minutes. 16:53:34 Fluoroscopy dose: 526 mGy 16:53:34 Flurop Dose total: 526 16:53:40 Dose Area Product 25239 mGy/cm. 16:53:50 Contrast amount:Isovue 300 86ml. 16:53:52 Maximum allowable dose exceeded? No. 16:53:57 Cyril band inflated with 11cc of air. 16:53:59 Insertion/operative site no bleeding no hematoma. 16:54:04 Post-op/insertion site Right Radial artery dressed using a 4 x 4 and Tegaderm. 16:54:12 Post right radial artery:stable 16:54:24 Post-procedure physical assessment completed. ASA score P 3 - A patient with severe systemic disease as per Rodrick Moran MD. 16:54:27 Post procedure rhythm: unchanged. 16:54:33 Estimated blood loss: 10 ml 16:54:35 Post procedure instruction explained to patient.Patient verbalizes understanding. 16:54:58 Procedure type changed to Cath procedure, Diagnostic procedure, LHC, C w/Coronaries, Sedation Charges, Moderate Sedation up to 15 minutes, PCI procedure, Coronary Stent, Coronary Stent Initial, Hemochron ACT Test 16:55:00 Procedure and supply charges have been captured, reviewed, submitted and are correct. 16:55:42 Procedure Complication : No complications 16:55:44 Vital chart was stopped 16:55:46 [facility] Findings: MVD- PCI performed (see procedure note) 16:55:48 Operative report dictated upon procedure completion. 16:55:53 See physician's report for complete and final results. 16:56:10 Report given to [place]. 16:56:14 Patient transfered to [facility] II with Bed. 16:56:16 Procedure ended. 16:56:16 Full Disclosure recording stopped 16:56:29 ACC-PCI Only Patient was given prescriptions, or instructed by Rodrick Moran MD to start/continue the following medications upon discharge: Plavix 16:56:31 End room use (Document Last) Intervention Summary Intervention Notes Time ActionType Lesion and Equipment Used Action# Pressure Duration Attributes 16:49:57 Place stent Dist RCA MICHELA RX 2.5 x 1 15 00:05 08 stent ([id number]) Device Usage Item Name Manufacture Quantity Catalog Number Hospital Part Current Minimal Lot# / Charge Number Stock Stock Serial# Code ACIST Syringe Acist 1 70053 085798 934783 [id number] 20 (92173) Medical Systems Inc Medline Cath Medline 1 [id number] 887335 72564 752124 5 Pack ([id number]) Bag Decanter Microtek 1 2001S 936045 53010 427875 5 (2001S) Medical Inc. ACIST Hand Acist 1 86202 545784 091379 494293 5 Control Medical (67389) Systems Inc ACIST Manifold Acist 1 70583 891724 528649 600874 5 (87983) Medical Systems Inc Tegaderm 4 x 4 3M 1 1626W 583288 190658 769965 5 (1626W) MBrace Wrist Advanced 1 140-0250-00 735041 78674 592696 5 Support Vascular ([id number]) Dynamics EMERALD Guide Cardinal 1 502455 991573 111724 035763 5 Wire (502455) Health SHEATH 6FR Cardinal 1 1835643 700203 4244771 167853 5 RAIN (0150745) Health DIAGNOSTIC Terumo 1 40-5195 908046 264725 309601 5 Marquette 110cm 5 Fr catheter (722437) INFLATOR Merit Merit 1 PA1442 176849 110316 833427 15 BasEasyPaintSalt Lake Regional Medical CenterPetBox Medical (WC7938) Davis Davis 1 31647E 856845 010228251 730284 5 Verrata Plus pressure wire (29231A) GUIDE 6FR AR Medtronic 1 [id number] 308256 73504 152589 1 2.0 catheter (GQ1IA46) CHOICE PT [place] 1 [id number] 876714 881545 711738 5 Extra Support Scientific 182cm wire (3331895T6) MICHELA RX 2.5 x Medtronic 1 [id number] 761850 1702351 047582 5 [id number] 08 stent ([id number]) ZEPHYR REGULAR Cardinal 1 764461 257014 1699064 916610 5 Venustech (884872) Signature Audit [place] Stage Time Signature Unsigned Intra-Procedure 05/03/2019 Monica Amato 4:57:12 PM RT(R) Intra-Procedure 05/03/2019 Abram Scott RN 4:58:09 PM Intra-Procedure 05/03/2019 Rodrick Moran 4:58:34 PM Signatures Performing Physician : Signature : Rodrick Tauth MD Date : Time : Monitor : Monica Lm Signature : RT Date : Time : Nurse : Buffie Scott RN Signature : Date : Time : [place] [address] [place] [address]
--- NOTE | ~2019-05-02 | DS ---
PATIENT:DENAE HALLMAN :35 MEDICAL RECORD: [id number] DISCHARGE SUMMARY ADMISSION DATE: 05/03/19 DISCHARGE DATE: DISCHARGE DIAGNOSES: 1. Unstable angina. 2. Coronary artery disease. 3. Percutaneous transluminal coronary angioplasty stent right coronary artery this admission. HOSPITAL COURSE: Mrs. Hallman presents with unstable angina, underwent PTCA stent of the RCA, which relieved her anginal symptomatology. Discharged home with no change in her medications. She will follow up with [facility] in 1 month. TRANSINT:[id number] Voice Confirmation ID: [id number] DOCUMENT ID: [id number] AMY OSBORNE MD CC: [id number] DICTATION DATE: 05/04/1942 GAS STATION SERVICE ATTENDANT: 05/04/19 0838 ADM IN [facility] [address] [place] [address]
[~2019-05-02 13:04] MED LIST changes: +BREO ELLIPTA 11 EACH INH; +COZAAR25 MG PO; +[UNRECOGNIZED DRUG - REMARK]
[2019-05-02 13:48] LABS: HEMATOCRIT 33.8 % (36.0-48.0); HEMOGLOBIN 10.9 g/dL (12-16); MCHC 32.2 g/dL (31.0-37.0); MCV 99.1 fL (80.0-100.0); RBC 3.41 10x6/uL (4.00-5.40); RDW 16.9 % (11.5-14.5); WBC 9.1 10x3/uL (4.8-10.8)
[2019-05-02 13:50] LABS: PLATELET COUNT 283 10x3/uL (130-400)
[2019-05-02 13:52] LABS: CALC OSMOLALITY 292 mosm/kg (275-300); CALCIUM 8.2 mg/dL (8.5-10.1); CARBON DIOXIDE 27.5 mmol/L (21.0-32.0); CHLORIDE - SERUM 107 mmol/L (98-107); CREATININE - SERUM 0.8 mg/dL (0.6-1.3); GLUCOSE 92 mg/dL (74-106); POTASSIUM - SERUM 4.1 mmol/L (3.5-5.1); SODIUM 144 mmol/L (136-145); UREA NITROGEN 28 mg/dL (7-18); eGFR NON AFRICAN AMERICAN 72 mL/min (90-120)
[2019-05-02 14:06] LABS: ALBUMIN 3.2 g/dL (3.4-5.0); ALKALINE PHOSPHATASE 59 U/L (46-116); ALT (SGPT) 15 U/L (10-68); BILIRUBIN - TOTAL 0.33 mg/dL (0.2-1.3); CKMB 1.2 U/L (0.0-3.6); CREATINE KINASE 35 UL (21-215); MAGNESIUM - SERUM 1.9 mg/dL (1.8-2.4); PROTEIN - SERUM 6.5 g/dL (6.4-8.2)
[2019-05-02 14:08] LABS: TROPONIN-I < 0.017 ng/mL (0.000-0.060)
[2019-05-02 14:30] LABS: EOSINOPHILS 1 % (0-7); LYMPHOCYTES 36 % (15-50); MONOCYTES 2 % (2-11); NEUTROPHILS 61 % (40-80); PLATELET ESTIMATE NORMAL; TARGET CELLS OCC; TEAR DROP CELLS OCC
--- NOTE | 2019-05-02 14:54 | NUR ---
DR. OSBORNE IN TO SEE PT.
[2019-05-02 15:08] LABS: APTT 24.9 SECONDS (22.8-39.4); PROTIME 12.7 SECONDS (11.6-15.0)
--- NOTE | 2019-05-02 15:34 | NUR ---
RECEIVED PT TO ROOM 2134 VIA W/C AAOX4 RESP UNLABORED SKIN W/D COLOR WNL TELEMETRY SINUS DUY 56 SALINE LOCK INTACT TO LT HAND WITH OCCLUSIVE DRSG SITE FREE OF REDNESS OR EDEMA DENIES ANY PAIN OR DISCOMFORT AT THIS TIME
[2019-05-02 16:06] VITALS: BP 169/67
[2019-05-02 17:26] VITALS: BP 169/67; Ht 160 cm; Wt 66.4 kg
--- NOTE | 2019-05-02 20:00 | NUR ---
A/O, COMPLAINING OF 8/10 CHEST PAIN. MONITORS SHOW 63 SINUS RHYTHM. GAVE PRN MORPHINE. ASSITED TO BATHROOM AN BACK IN BED. DENIES NO NEEDS AT THIS TIME. WILL CONTINUE TO MONITOR.
[2019-05-02 20:45] VITALS: BP 152/60
[2019-05-03 00:15] VITALS: BP 120/49
[2019-05-03 04:18] VITALS: BP 132/58
[2019-05-03 08:39] VITALS: BP 135/61
--- NOTE | 2019-05-03 09:52 | NUR ---
PT AWAKE AND ORIENTED WHEN I ENTERED ROOM THIS MORNING, DR LIM NOTES DID NOT SAY ANYTHING ABOUT HER HAVING A CATH, SHE ATE BREAKFAST, ORDERS CAME IN FOR CATH POST BREAKFAST. PT IS NOW NPO, INFORMED ORDER CONTROL CLERK BLOOD BANK. NO COMPLAINTS OR CONCERNS AT THIST IRVIN. ALL QUESTIONS ANSWERED TO THE BEST OF MY ABILITY.CL IN REACH, SRX2.
[2019-05-03 12:09] VITALS: BP 114/70
--- NOTE | 2019-05-03 14:06 | NUR ---
I have reviewed this patient and I concur with the Shift Assessment completed by the Licensed Practical Nurse today this shift.
--- NOTE | 2019-05-03 17:03 | NUR ---
ONE STINT TO PDA. 4,000U HEPARIN, 1.5 VERCED, 25 FENT. ZEPHER RIGHT RADIAL. LAC 20.
[2019-05-03 18:10] VITALS: BP 99/66
[2019-05-03 20:30] VITALS: BP 156/69
--- NOTE | 2019-05-03 21:00 | NUR ---
DECREASED AIR IN TR BAND. SITE CLEAN NO BLEEDING SEEN. PT COMPLAINS OF PAIN GENERALIZED. PRN PAIN MEDICATION GIVEN. PT ALERT AND ORIENTED X4. VITALS STABLE. NO S/S OF DISTRESS. WILL CONTINUE TO MONITOR.
[2019-05-04 00:31] VITALS: BP 146/59
--- NOTE | 2019-05-04 01:21 | NUR ---
I have reviewed this patient and I concur with the Shift Assessment completed by the Licensed Practical Nurse today this shift.
[2019-05-04 04:43] VITALS: BP 161/61
--- NOTE | 2019-05-04 04:44 | NUR ---
PT RESTING IN BED WITH EYES CLOSED RR EVEN AND UNLABORED. NO S/S OF DISTRESS. VITALS STABLE. BED LOW CALL LIGHT WITHIN REACH. WILL CONTINUE TO MONITOR.
--- NOTE | 2019-05-04 07:25 | NUR ---
RECIEVED REPORT. PATIENT IS RESTING QUIETLY AT THIS TIME. SHE HAD A HEART CATH YESTERDAY AND HAD A STENT PLACED. SHE IS BEING DISCHARGED TODAY. WAITING ON THOSE ORDERS. PATIENT DENIES ANY NEEDS AT THIS TIME.
--- NOTE | 2019-05-04 07:41 | HP ---
PATIENT: DENAE HALLMAN MEDICAL RECORD: [id number] ACCOUNT: [id number] LOCATION:[address] : 35 ADMISSION DATE: 05/03/19 PCP: OLIVIA HAMMOND MD HISTORY AND PHYSICAL EXAMINATION CARDIOLOGY ADMIT NOTE ADMITTING DIAGNOSES: 1. Unstable angina. 2. Coronary artery disease. 3. Previous multivessel percutaneous transluminal coronary angioplasty stent. 4. Hypertension. 5. Hyperlipidemia. 6. Chronic obstructive pulmonary disease. 7. Smoking history. HISTORY OF PRESENT ILLNESS: Mrs. Hallman presents with severe angina. The past 2 days, it got much worse, starting at 4:00 a.m. this morning. She continues to have chest pain, it is just like that of her previous angina. She is status post multivessel PTCA stent, last being circumflexed, 04/03/2019. PHYSICAL EXAMINATION: CONSTITUTIONAL/GENERAL APPEARANCE: Well nourished, well developed, appears stated age. EYES: Lids and conjunctivae noninjected. No discharge. No pallor. ENT: Lips within normal limit. No cyanosis. No pallor. NECK: Carotid arteries, bilateral normal upstroke. No bruits. No thrills. No jugular venous pressure or distention. CERVICAL LYMPH NODES: Nontender. Nonenlarged. THYROID: Not enlarged. No nodules. CARDIOVASCULAR: Precordial exam, nondisplaced. No heaves or pericardial thrills. Rate and rhythm, regular. Heart sounds, normal S1, normal S2. No S3, no gallop, no rub. Systolic murmur, not heard. Diastolic murmur, not heard. RESPIRATORY: Respiratory effort, unlabored. Normal curvature. No thoracic deformity. No chest wall tenderness. Percussion, resonant. Auscultation, clear. No wheezes, no rales, no rhonchi. ABDOMEN: Soft, nondistended, nontender. No abdominal pain, no vomiting and normal appetite. MUSCULOSKELETAL: No joint tenderness, normal gait, normal tone. SKIN: Warm and dry. OVERALL IMPRESSION: Unstable angina, poor blood pressure control. She was recently taken off the lisinopril due to tongue swelling and placed on a low dose losartan in place of this. She has not had any further tongue swelling, but her blood pressure is not well controlled with systolic blood pressures in the 160-200 range. At this time, we will continue her carvedilol as she is bradycardic and add Procardia XL to her regimen for better blood pressure control and reevaluate in the morning with better blood pressure control. She continues to have chest pain, add long-acting nitrates as well. If she continues having chest pain despite maximal medical therapy, we would consider repeat coronary angiography. TRANSINT:[id number] Voice Confirmation ID: [id number] DOCUMENT ID: [id number] HISTORY AND PHYSICAL [id number] DENAE HALLMAN JEFFREY MD at 0741 CC: [id number] DICTATION DATE: 05/02/19 1417 POLEYARD SUPERVISOR: 05/02/19 1622 ADM IN [place] [id number] [place] [id number]
--- NOTE | 2019-05-04 09:25 | NUR ---
DISCHARGE TEACHING DONE AND PAPERS SIGNED. REMOVING TELEMETRY AND IV. PATIENT HAS HAD HER MORNING MEDS AND HER DAUGHTER WILL COME PICK HER UP WHEN SHE IS DRESSED AND READY.
--- NOTE | 2019-05-04 11:00 | NUR ---
PATIENT HAS BEEN DISCHARGED. IV REMOVED WITH CATHETER INTACT. TEACHING COMPLETE. SHE WENT DOWNSTAIRS IN A WHEEL CHAIR AND HER DAUGHTER PICKED HER UP AND BROUGHT HER HOME. HEAD TO TOE ASSESSMENT COMPLETE AND I CONCUR WITH THE DR LETTING HER GO HOME. ALL HER PERSONAL BELONGINGS HAVE GONE HOME WITH THE PATIENT AND THE TELEMETRY WAS RETURNED.
--- NOTE | 2019-05-04 17:20 | MORECARE ---
CASE MANAGEMENT DISCHARGE SUMMARY PATIENT: ARELY HALLMAN UNIT: [id number] ADM DATE: 05/03/19 AGE: 83 : 35 SEX: F ROOM/BED: D.1622 AUTHOR: BETHDOC PHYSICIAN: REFERRING PHYSICIAN: AMY OSOBRNE MD DATE OF SERVICE: 05/04/19 Discharge Plan Patient Name: ARELY HALLMAN Facility[facility]:[place] : 1935 Planned Disposition: Home Anticipated Discharge Date: 05/04/19 Discharge Date: 05/04/2019 Expected LOS: 1 Initial Reviewer: [email or web address] Initial Review Date: 05/04/2019 Generated: 05/04/19 6:20 pm Comments DCP- Discharge Planning Updated by [email or web address]: Leandro March on 05/04/19 4:[address] Patient Name: ARELY HALLMAN Admission Status: ER Accout number: [id number] Admission Date: 05-03-2019 : 1935 Admission Diagnosis: Attending: AYAKA OSBORNE Current LOS: 1 Anticipated DC Date: 05-04-2019 Planned Disposition: Home Primary Insurance: MEDICARE A & B Discharge Planning Comments: CM MET WITH PT IN ROOM TO DISCUSS DISCHARGE PLANNING AND NEEDS. PT REPORTS LIVING AT HOME INDEPENDENTLY AND IS CAREGIVER FOR HER OLDER SISTER AT HOME. PT HAS NO MEDICAL EQUIPMENT AND NO OUTSIDE SERVICES ASSISTING IN THE HOME. CM DISCUSSED AVAILABILITY OF HOME HEALTH, REHAB SERVICES AND MEDICAL EQUIPMENT. PT DENIES DISCHARGE NEEDS, REPORTS HER DAUGHTER WILL PICK HER UP FOR DISCHARGE HOME. MACHINE SHOP HELPER NURSE NOTIFIED. Technician Automatic: Leandro March DCP- Discharge Planning Updated by [email or web address]: Yarely Krishnan on 05/02/19 2:[address] CM met with patient to discuss initial discharge planning. Patient is in agreement to proceed with assessment. Patient lives in her home and is the caregiver of her older sister, Chandni. Verified patient's address and telephone number. Patient is alert/oriented. PCP: Dr. Olga Connolly. Pharmacy: [email or web address] or [email or web address]. Patient states they have been able to obtain all of their prescribed medications. Patient lives with her sister, Chandni and is her caregiver. HHS: No. DME: No. Patient gives permission to speak with family members. Emergency contact: Tomi Richard (dtr) [phone]. Patient is Independent with all ADL's, medication management. CM discussed the availability of HH, Rehab, DME services. Patient denies the need for additional services at this time and feels safe returning to previous environment. Patient denies being hospitalized within the past 30 days. Patient denies the use of community resources ANDROID IOS DEVELOPER. Transportation at time of discharge: Tomi Ramos [phone]. CM will follow and assist PRN with dc needs. DCPIA - Discharge Planning Initial Assessment Updated by [email or web address]: Leandro March on 05/04/19 5:15 pm * Is the patient Alert and Oriented? Yes * How many steps to enter\exit or inside your home? 3 W/ RAILS * PCP DR. NICHOLAS HAMMOND * Pharmacy [facility] * Preadmission Environment Home with Family * ADLs Independent * Equipment None * Other Equipment NO MEDICAL EQUIPMENT PROVIDER PREFERENCE * List name and contact numbers for known caregivers / representatives who currently or will assist patient after discharge: EDU RICHARD, DTR, * Verbal permission to speak to the caregivers and representatives has been obtained from the patient. N/A * Community resources currently utilized None * Please name any agencies selected above. NONE * Additional services required to return to the preadmission environment? No * Can the patient safely return to the preadmission environment? Yes * Has this patient been hospitalized within the prior 30 days at any hospital? No Coverage Notice Reviewer: [email or web address] Nehal Krishnan Notice Issued Date-Time: 05/02/2019 14:25 Notice Type: Medicare Outpatient Observation Notice Notice Delivered To: Patient Relationship to Patient: Self Asbestos Abatement Technician Name: Arely duque Delivery Method: HAND - Hand Delivered Gabbie Days: Prior Verbal Notification: Recipient Understood Notice: Yes Recipient Signature: Yes Med Rec Note Co-signed by Attending: Coverage Notice Comment: HART delivered to and signed by patient. Original given to and one placed on chart. Patient Name: ARELY HALLMAN Page [phone] at 1720 All edits/amendments must be made on the electronic document DICTATION DATE: 05/04/191719 RAD TECHNOLOGIST: MIGUEL 05/04/19 172 RPT#: [id number] DC DATE:05/04/19 STATUS: DIS IN [facility] [address] [facility] [place] [address] END OF REPORT
== END 2019-05-04 11:12 | disposition home or self-care (01) | DRG 247 ==
LOC: D.ER 13:04 → OBSVTIME 14:13 → D.M2 14:13
PROVIDERS: Emergency Medicine; ADMIT Internal Medicine Interventional Cardiology; ATTEND Internal Medicine Interventional Cardiology
PROC: B2111ZZ Fluoroscopy of Multiple Coronary Arteries using Low Osmolar Contrast (ICD-10-PCS; 2019-05-03)
PROC: B2151ZZ Fluoroscopy of Left Heart using Low Osmolar Contrast (ICD-10-PCS; 2019-05-03)
PROC: 027034Z Dilation of Coronary Artery, One Artery with Drug-eluting Intraluminal Device, Percutaneous Approach (ICD-10-PCS; principal; 2019-05-03 16:10)
PROC: 4A023N7 Measurement of Cardiac Sampling and Pressure, Left Heart, Percutaneous Approach (ICD-10-PCS; 2019-05-03 16:10)
DX: I25.110 Atherosclerotic heart disease of native coronary artery with unstable angina pectoris (principal); I10 Essential (primary) hypertension; E78.5 Hyperlipidemia, unspecified; J44.9 Chronic obstructive pulmonary disease, unspecified

== ENCOUNTER → 2019-07-15 14:26 | Outpatient (CLI) | payer MEDICARE, BC ==
[~2019-07-15 14:26] MED LIST changes: +BAYER CHEWABLE81 MG PO
--- NOTE | 2019-07-19 11:19 | EC ---
PATIENT:DENAE HALLMAN DATE OF SERVICE: 07/15/19 SEX: F MEDICAL RECORD: [id number] DATE OF : 35 LOCATION:D.[facility] AGE OF PATIENT: 83 ADMISSION DATE: 07/15/19 REFERRING PHYSICIAN: INTERPRETING PHYSICIAN: LUIS MCCONNELL MD ECHOCARDIOGRAM REPORT ECHO CHARGES 4 ECHO COMPLETE Date: 07/15/19 CLINICAL DIAGNOSIS: CAD/LOWER EDEMA/MR/TR ECHOCARDIOGRAPHIC MEASUREMENTS (adult normal given) AC root (d.<3.7cm) 2.9 cm LV Septum d (<1.2 cm> 1.4 cm Valve Excursion 1.6 cm LV Septum (systole) 1.6 cm Left Atria (s.<4.0cm> 3.8 cm LVPW d(<1.2cm) 1.3 cm RV (d.<2.3cm) 3.6 cm LVPW (sytole) 1.8 cm LV diastole(<5.6CM) 5.0 cm MV E-F(>70mm/sec) cm LV systole 3.4 cm LVOT Diameter 1.8 cm MV exc.(>10mm) 1.4 cm Est.ejection fraction (50-75%) % DOPPLER: LVIT cm/sec A 81.0 cm/sec E 49.0 cm/sec LA cm/sec RVSP 33 mmHg LVOT 98 cm/sec AOP1/2T m/s Asc. Ao 183 cm/sec RVOT 73 cm/sec RA cm/sec PA 104 cm/sec AV Gradient Peak 13.35mmHg AV Mean 7.80 mmHg AV Area 1.4 cm MV Gradient Peak 5.70 mmHg MV Mean 2.01 mmHg MV Area cm COMMENTS: Heel Seat Laster: 2 JAYY ESPINOSA Packer Insulation: 3 Dr. Patel TAPE# PACS Pericardial Effusion N DATE OF SERVICE: Adequate 2D, color flow imaging, spectral Doppler, and M-Mode. Mild LVH. LV internal dimension is normal. Wall motion is normal. EF is greater than or equal to 55%. Aortic valve is tricuspid. No evidence of stenosis by Doppler interrogation. Left atrium is normal at 3.8 cm. Mitral valve shows no prolapse. Mild MR. Right-sided chambers are grossly normal. Trace TR. TRANSINT:[id number] Voice Confirmation ID: [id number] DOCUMENT ID: [id number] ECHOCARDIOGRAM REPORT [id number] DENAE HALLMAN,LUIS Bradshaw MD at 1119 CC: [id number] DICTATION DATE: 07/15/19 1546 HAND TRIMMER: 07/15/19 1850 DEP CLI 07/15/19 [facility] [address] [place] [address]
== END | disposition home or self-care (01) ==
LOC: D.HCCECHO 14:26
PROVIDERS: ATTEND Internal Medicine Interventional Cardiology
DX: I25.10 Atherosclerotic heart disease of native coronary artery without angina pectoris (principal)

== ENCOUNTER 2019-09-07 10:28 | Inpatient (IN) | payer MEDICARE, BC ==
[~2019-09-07] VITALS: Ht 152.4 cm; Wt 60.6 kg
--- NOTE | ~2019-09-07 | HEMODYNAMI ---
PATIENT:DENAE HALLMAN MEDICAL RECORD: [id number] : [birth year] [address] [id number] ADMISSION DATE: 09/07/19 Generatedon:09/08/201911:54 Patient name: DENAE HALLMAN Patient #: [id number] : 1935 Date of study: 09/08/2019 Page: Of Hemodynamic Procedure Report Patient Data Patient Demographics Procedure consent was obtained First Name: DENAE Gender: Female Last Name: LEXX : 1935 [facility] Initial: CHRISTIANO Age: 84 year(s) Patient #: [id number] Race: SSN: [id number] Additional ID: [id number] Contact details [address]: [address] [place] [address] State: [place] City: [place] Zip code: [address] Past Medical History History of disease Date Diagnosis Comments CAD Allergies Allergen Reaction Date Comments Reported Other allergy 04/05/2019 AMLODIPINE Other allergy 06/21/2019 LISINOPRIL Other allergy 09/08/2019 LISINOPRIL Admission Admission Data Admission Date: 09/07/2019 Admission Time: 11:40 Arrival Date: 09/08/2019 Arrival Time: 0:00 Room #: [facility] Height (in.): 59.84 BSA: 1.57 (m2) Height (cm.): 152 BMI: 26.4 (kg/m2) Weight (lbs.): 134.48 Weight (kg.): 61 Lab Results Lab Result Date: 09/08/2019 Lab Result Time: 0:00 Biochemistry Name Units Result Min Max BUN mg/dl 14 --(--*-)-- 7 18 Creatinine mg/dl 0.7 --(*---)-- 0.6 1.3 eGFR ml/min 84 -*(----)-- 90 120 NONAFRICAN CBC Name Units Result Min Max Hematocrit % 30.9 *-(----)-- 42 54 Hemoglobin g/dl 9.6 *-(----)-- 13.5 17.5 Procedure Procedure Types Cath Procedure Diagnostic Procedure [facility] w/Coronaries Sedation Charges Moderate Sedation up to 15 minutes Procedure Description Procedure Date Procedure Date: 09/08/2019 Procedure Start Time: 11:44 Procedure End Time: 11:53 Procedure Staff Name Function Boogie Chi MD Performing Physician Janet Gann RT Monitor Mitzi Goode RT Scrub Amara Robbins RN Nurse Indication CAD Procedure Data Cath Procedure Fluoroscopy Diagnostic fluoroscopy Total fluoroscopy Time: 0.9 time: 0.9 min min Diagnostic fluoroscopy Total fluoroscopy dose: 220 dose: 220 mGy mGy Contrast Material Contrast Material Type Amount (ml) Isovue 300 45 Entry Location Entry Primary Successful Side Size Upsize Upsize Entry Closure Succes sful Closure Location (Fr) 1 (Fr) 2 (Fr) Remarks Device Remarks Femoral Right 6 Fr Exoseal artery Short Estimated blood loss: 5 ml Diagnostic catheters Device Type Used For End Catheter Placement MULTIPACK JL 4.0 5Fr Left Coronary catheter Angiography MULTIPACK 3DRC 5Fr Right Coronary catheter Angiography MULTIPACK Pigtail 5 Fr LV Angiography catheter Procedure Complications No complications Procedure Medications Medication Administration Route Dosage 0.9% NaCl I.V. 100 ml/hr Oxygen etCO2 Nasal cannula 2 l/min Lidocaine 2% added to field 20 Heparin Flush Bag added to field 2 bags (1000units/500ml NS) Versed I.V. 2 mg Fentanyl I.V. 50 mcg Benadryl I.V. 50 mg Plavix P.O. 75 mg Hemodynamics Rest BSA: 1.57 (m2) HGB: 9.6 (g/dl) O2 Consumption: Estimated: 142.84 (ml/min) O2 Con sumption indexed: Estimated:90.98 (ml/min/m) Heart Rate: 75 (bpm) Pressure Samples Time Site Value (mmHg) Purpose Heart Use Rate(bpm) 11:49 LV 163/7,14 Snapshot 75 11:49 AO 165/51(105) Pullback 75 11:49 LV 158/11,16 Pullback 75 Gradients Valve Time Site 1 Site 2 Mean SEP/DFP Peak To Heart Use (mmHg) (sec/min) Peak Rate (mmHg) (bpm) Aortic 11:49 LV AO 0 21 0 75 158/11,16 165/51(105) Calculations Valve P-P Mean Valve Index Valve Source Name Gradient Area Flow (cm2) Aortic 0 0 0 0 Snapshots Pre Cath Intra NCS Post Cath Vital Signs Time Heart Resp SPO2 etCO2 NIBP (mmHg) Rhythm Pain Sedation Rate (ipm) (%) (mmHg) Status Level (bpm) 11:38:30 81 12 97 18 153/76(114) NSR 0 (11) 10(A) , No pain 11:42:51 73 76 99 25.6 133/63(101) NSR 0 (11) 9(A) , No pain 11:47:04 75 25 100 20.7 142/67(108) NSR 0 (11) 10(A) , No pain 11:51:23 75 36 28.6 160/67(132) NSR 0 (11) 10(A) , No pain Medications Time Medication Route Dose Verified Delivered Reason Notes E ffectiveness by by 11:37:45 Benadryl I.V. 50 mg Boogie Amara used for AlnoTone Robbins procedure MD JUNG 11:37:54 Plavix P.O. 75 mg Boogie Amara for St Tone Robbins antiplatelet RN therapy 11:38:11 0.9% NaCl I.V. 100 Boogie Amara used for ml/hr St Tone Robbins procedure MD JUNG 11:38:17 Oxygen etCO2 2 Boogie Amara used for Nasal l/min St Tone Robbins procedure cannula MD JUNG 11:38:22 Lidocaine 2% added 20ml Boogie Boogie for local to vial [facility] anesthetic field MD BILL 11:38:27 Heparin Flush added 2 Boogie Boogie used for Bag to bags [facility] procedure (1000units/500ml field MD BILL NS) 11:39:21 Versed I.V. 2 mg Boogie Amara for sedation St Tone Robbins MD RN 11:39:31 Fentanyl I.V. 50 Boogie Amara for sedation [facility] St Tone Robbins MD art department head Log Time Note 10:57:12 Informed consent obtained and on chart 10:57:32 Time tracking: Regular hours (M-F 7:00 - 5:00) 10:57:36 Plan of Care:Hemodynamics will remain stable., Cardiac rhythm will remain stable., Comfort level will be maintained., Respiratory function will remain adequate., Patient/ family verbilizes understanding of procedure., Procedure tolerated without complication., Recovers from procedure without complications.. 10:57:40 Procedure Status Urgent Heart Cath (IP). 10:57:44 H&P Date Dictated: 09/08/2019 ER History on chart.. 10:58:02 Patient allergic to Other allergyLISINOPRIL 10:58:34 Lab Result : BUN 14 mg/dl 10:58:34 Lab Result : Creatinine 0.7 mg/dl 10:58:34 Lab Result : Hemoglobin 9.6 g/dl 10:58:34 Lab Result : eGFR NONAFRICAN 84 ml/min 10:58:34 Lab Result : Hematocrit 30.9 % 10:59:39 Stress Test: no; N/A ? 11:01:07 Risk of Mortality: .5 11:01:10 Risk of blood transfusion: 17.5 11:01:16 Risk of ALEN: 2.1 11:03:07 Indication : CAD 11:04:23 Amara Robbins RN sent for patient. Start room use. 11:10:02 Arrival Date: 09/08/2019 12:00:00 AM 11:10:09 Patient Height : 59.84 inches 11:10:17 Patient Weight : 134.48 lbs 11:13:15 Lab results completed and on chart. 11:16:17 Patient received from Med II to CCL 1 Alert and oriented. Tansferred to table in Supine position. 11:16:19 Warm blankets applied, and lizeth hugger turned on for patient comfort. 11:16:20 Correct patient and procedure confirmed by team. 11:16:21 ECG and BP/O2 sat monitors applied to patient. 11:21:09 Full Disclosure recording started 11:21:10 Pre-procedure instructions explained to patient. 11:21:11 Pre-op teaching completed and patient verbalized understanding. 11:22:28 Patient NPO since Midnight. 11:22:32 Family AVAILABLE WITH PHONE CALL 11:23:04 Is patient on blood thinner?Yes 11:23:06 ACC The patient was administered the following blood thiners within the last 24 hours: ACCPlavix 11:23:47 Patient diabetic? No. 11:23:49 Patient not . Patient is over age 55. 11:23:51 Previous problem with sedation/anesthesia? No ? 11:23:53 Snore? Yes 11:23:56 Sleep apnea? No 11:23:57 Deviated septum? No 11:24:07 Opens mouth fully? Yes 11:24:08 Sticks out tongue? Yes 11:24:10 Airway obstruction? Yes COPD 11:24:13 Dentures? No ? 11:25:23 Vital chart was started 11:25: Baseline sample Acquired. 11:30:47 Pre procedure: right dorsailis pedis pulse 2+ Normal; easily identifiable; not easily obliterated 11:36:55 Rhythm: sinus rhythm 11:37:45 Benadryl 50 mg I.V. was administered by Amara Robbins RN; used for procedure; Verbal order read back and verified. 11:37:46 IV started by Amara Robbins RN inright hand with a 24 gauge IV catheter with 0.9% NaCl at KVO. 11:37:54 Plavix 75 mg P.O. was administered by Amara Robbins RN; for antiplatelet therapy; Verbal order read back and verified. 11:38:02 Right groin area was prepped with chlora-prep and draped in sterile fashion 11:38:05 Alarms reviewed by R. N. 11:38:06 Sharps counted by scrub and verified by R.N. 11:38:08 Physician arrived 11:38:11 0.9% NaCl 100 ml/hr I.V. was administered by Amara Robbins RN; used for procedure; Verbal order read back and verified. 11:38:14 --------ALL STOP TIME OUT------ 11:38:15 Final Timeout: patient, procedure, and site verified with staff and physician. All members of the team are in agreement. 11:38:17 Oxygen 2 l/min etCO2 Nasal cannula was administered by Amara Robbins RN; used for procedure; Verbal order read back and verified. 11:38:19 Right groin site verified by team. 11:38:22 Lidocaine 2% 20ml vial added to field was administered by Boogie Chi MD; for local anesthetic; Verbal order read back and verified. 11:38:25 Fire Safety Assessment: A--An alcohol-based skin anteseptic being used preoperatively., C--Open oxygen or nitrous oxide is being used., D--An ESU, laser, or fiber-optic light is being used. 11:38:27 Heparin Flush Bag (1000units/500ml NS) 2 bags added to field was administered by Boogie Chi MD; used for procedure; Verbal order read back and verified. 11:38:30 Physical assessment completed. ASA score P 2 - A patient with mild systemic disease as per Boogie Chi MD. 11:38:39 2) 60-89 Mildly reduced kidney function, and other findings (as for stage 1) point to kidney disease. 11:38:44 Maximum allowable contrast dose (3.7 X eGFR X 0.75)233 ml. 11:38:51 Sedation plan: IV Moderate Sedation Medication:Versed, Fentanyl 11:38:57 Use device set Femoral Dx 11:38:59 ACIST Syringe (92002) opened to sterile field. 11:39:00 Bag Decanter (2002S) opened to sterile field. 11:39:06 Medline Cath Pack ([id number]) opened to sterile field. 11:39:09 ACIST Hand Control (38951) opened to sterile field. 11:39:10 ACIST Manifold (05650) opened to sterile field. 11:39:13 DIAGNOSTIC Multipack 5Fr catheter set (TQ6311) opened to sterile field. 11:39:14 Tegaderm 4 x 4 (1626W) opened to sterile field. 11:39:17 SHEATH 5FR Clayton (CIZ454) opened to sterile field. 11:39:18 EMERALD Guide Wire (107-729) opened to sterile field. 11:39:21 Versed 2 mg I.V. was administered by Amara Robbins RN; for sedation; Verbal order read back and verified. 11:39:31 Fentanyl 50 mcg I.V. was administered by Amara Robbins RN; for sedation; Verbal order read back and verified. 11:41:19 Zero performed for pressure channel P1 11:44:22 Procedure started. 11:44:29 Local anesthetic to right femoral artery with Lidocaine 2% by Boogie Chi MD.INITIAL ACCESS ONLY 11:44:44 A 6 Fr Short sheath was inserted into the Right Femoral artery 11:45:28 A MULTIPACK JL 4.0 5Fr catheter was advanced over the wire and used for Left Coronary Angiography. 11:45:47 LCA angiography performed. 11:45:48 Injector settings: Ml/sec: 3, Volume: 6, 11:46:14 JANET SPOKE TO DAUGHTER PROCEDURE STARTED. 11:46:39 Catheter removed. 11:46:44 Pt arrived to 1 from Med II floor w/ infiltrated and leaking IV to R AC. New IV placed by Arnie Ordoñez RN to R hand. Plavix marked as "refused" on pt MAR in [place] but pt states she did not refuse any medicines this AM. Plavix and benadryl given by CL RN upon arrival to . 11:46:46 A MULTIPACK 3DRC 5Fr catheter was advanced over the wire and used for Right Coronary Angiography. 11:47:37 RCA angiography performed. 11:47:41 Injector settings: Ml/sec: 3, Volume: 6, 11:48:08 Catheter removed. 11:48:26 A MULTIPACK Pigtail 5 Fr catheter was advanced over the wire and used for LV Angiography. 11:48:38 Injector settings: Ml/sec: 5, Volume: 15, 11:48:42 LV gram done using DUNN 11:49:16 EF : 55 % 11:49:25 LV hemodynamics recorded. 11:49:26 Catheter removed. 11:49:31 EXOSEAL 5Fr (EX500) opened to sterile field. 11:49:53 Contrast amount:Isovue 300 45ml. 11:49:55 Maximum allowable dose exceeded? No. 11:50:06 Sheath removed intact; hemostasis achieved with Exoseal to the Right Femoral artery. 11:50:12 Procedure ended.(Physican Out) 11:50:23 Sharps counted by scrub and verified by R.N. 11:50:32 Fluoroscopy time 00.90 minutes. 11:50:39 Flurop Dose total: 220 11:50:39 Fluoroscopy dose: 220 mGy 11:50:48 Dose Area Product 06060 mGy/cm. 11:51:07 Insertion/operative site no bleeding no hematoma. 11:51:13 Post-op/insertion site Right Femoral artery dressed using a 4 x 4 and Tegaderm. 11:51:18 Post right femoral artery:stable 11:51:25 Post-procedure physical assessment completed. ASA score P 2 - A patient with mild systemic disease as per Boogie Chi MD. 11:51:30 Post procedure rhythm: unchanged. 11:51:34 Estimated blood loss: 5 ml 11:51:37 Post procedure instruction explained to patient.Patient verbalizes understanding. 11:51:39 Patient needs reinforcement of post procedure teaching. 11:51:58 Procedure type changed to Cath procedure, Diagnostic procedure, LHC, LHC w/Coronaries, Sedation Charges, Moderate Sedation up to 15 minutes 11:52:01 Procedure and supply charges have been captured, reviewed, submitted and are correct. 11:52:27 Procedure Complication : No complications 11:52:30 Vital chart was stopped 11:52:33 [facility] Findings: mild to moderate CAD (<70%) 11:52:37 Operative report dictated upon procedure completion. 11:52:38 See physician's report for complete and final results. 11:52:40 Report given to [facility] II. 11:52:47 Patient transfered to [facility] II with Bed. 11:53:24 Procedure ended. 11:53:24 Full Disclosure recording stopped 11:53:28 End room use (Document Last) Device Usage Item Name Manufacture Quantity Catalog Hospital Part Current Minimal L ot# / Number Charge Number Stock Stock Serial# Code ACIST Acist 1 73849 482228 104572 [id number] 20 Syringe Medical (29170) Systems Inc Bag Microtek 1 2001S 002292 10142 984992 5 Decanter Medical Inc. () Medline Medline 1 [id number] 483439 29694 875184 5 Cath Pack ([id number]) ACIST Hand Acist 1 20410 860353 255247 511033 5 Control Medical (21682) Systems Inc ACIST Acist 1 52521 187295 077635 642113 5 Manifold Medical (00893) Systems Inc DIAGNOSTIC Cardinal 1 IK9521 323251 32449 890982 30 Multipack Health 5Fr catheter set (RS7471) Tegaderm 4 3M 1 1626W 816118 284085 331191 5 x 4 (1626W) SHEATH 5FR Terumo 1 OQU657 307726 669476 730433 5 Clayton (BCE568) EMERALD Cardinal 1 502-455 126951 301534 766786 5 Guide Wire [facility] (502-455) MULTIPACK Cardinal 1 321621 5 JL 4.0 5Fr Health catheter MULTIPACK Cardinal 1 266400 5 3DRC 5Fr Health catheter MULTIPACK Cardinal 1 273917 5 Pigtail 5 Health Fr catheter EXOSEAL 5Fr Cardinal 1 EX500 314034 636927 511493 10 (EX500) Health Signature Audit [place] Stage Time Signature Unsigned Intra-Procedure 09/08/2019 Janet 11:53:48 AM Sanjuanita HUNG(R) (CV) Intra-Procedure 09/08/2019 Amara Robbins 11:54:13 AM RN Intra-Procedure 09/08/2019 Boogie Toussaint 11:54:41 AM Tone BILL [place] [id number] [place] [id number]
[2019-09-07 11:00] LABS: BASOPHILS 0.2 % (0-2); EOSINOPHILS 1.5 % (0-7); HEMATOCRIT 32.7 % (36.0-48.0); HEMOGLOBIN 10.1 g/dL (12-16); IMMATURE GRANULOCYTES 0.4 % (0-5); LYMPHOCYTES 20.2 % (15-50); MCHC 30.9 g/dL (31.0-37.0); MEAN PLATELET VOLUME 8.8 fL (7.4-10.4); MONOCYTES 6.9 % (2-11); NEUTROPHILS 70.8 % (40-80); RBC 3.37 10x6/uL (4.00-5.40); RDW 17.6 % (11.5-14.5); WBC 9.8 10x3/uL (4.8-10.8)
[2019-09-07 11:02] LABS: PLATELET COUNT 270 10x3/uL (130-400)
[2019-09-07 11:05] LABS: CALC OSMOLALITY 283 mosm/kg (275-300); CALCIUM 8.8 mg/dL (8.5-10.1); CARBON DIOXIDE 26.7 mmol/L (21.0-32.0); CHLORIDE - SERUM 106 mmol/L (98-107); CREATININE - SERUM 0.8 mg/dL (0.6-1.3); GLUCOSE 104 mg/dL (74-106); POTASSIUM - SERUM 3.5 mmol/L (3.5-5.1); SODIUM 141 mmol/L (136-145); UREA NITROGEN 21 mg/dL (7-18); eGFR NON AFRICAN AMERICAN 72 mL/min (90-120)
[2019-09-07 11:08] LABS: APTT 25.6 SECONDS (22.8-39.4); INR 0.96 (0.85-1.17); PROTIME 12.8 SECONDS (11.6-15.0)
[2019-09-07 11:20] LABS: ALBUMIN 3.2 g/dL (3.4-5.0); ALKALINE PHOSPHATASE 62 U/L (30-120); ALT (SGPT) 15 U/L (10-68); BILIRUBIN - TOTAL 0.31 mg/dL (0.2-1.3); CKMB 1.3 U/L (0.0-3.6); CREATINE KINASE 31 UL (21-215); MAGNESIUM - SERUM 1.6 mg/dL (1.8-2.4); PROTEIN - SERUM 6.7 g/dL (6.4-8.2)
[2019-09-07 11:25] LABS: TROPONIN-I < 0.017 ng/mL (0.000-0.060)
[2019-09-07 13:01] LABS: CKMB 1.3 U/L (0.0-3.6); CREATINE KINASE 151 UL (21-215); TROPONIN-I < 0.017 ng/mL (0.000-0.060)
[2019-09-07 13:30] VITALS: BP 173/67; BMI 25.6
[2019-09-07 13:45] VITALS: Ht 152.4 cm; Wt 60.6 kg
[2019-09-07 14:09] LABS: % SATURATION 8 % (15-55); IRON 41 ug/dl (35-150); TOTAL IRON BIND CAPACITY 458 ug/dl (260-445); UNSAT IRON BIND CAPACITY 417 ug/dl (150-375)
[2019-09-07 15:46] VITALS: BP 127/54
[2019-09-07 17:33] LABS: CHOL - HDL RATIO 2.1 ratio (2.3-4.1); LDL-HDL RATIO 0.7 ratio (1.5-3.5)
[2019-09-07 17:58] LABS: BILIRUBIN NEGATIVE (NEGATIVE); GLUCOSE NEGATIVE (NEGATIVE); KETONE NEGATIVE (NEGATIVE); NITRITE NEGATIVE (NEGATIVE); UROBILINOGEN NORMAL (NORMAL)
[2019-09-07 18:24] LABS: CKMB 1.5 U/L (0.0-3.6); CREATINE KINASE 28 UL (21-215)
[2019-09-07 18:26] LABS: TROPONIN-I < 0.017 ng/mL (0.000-0.060)
[2019-09-07 21:44] VITALS: BP 124/47
[2019-09-08 00:05] LABS: CKMB 1.1 U/L (0.0-3.6); CREATINE KINASE 25 UL (21-215)
[2019-09-08 00:10] LABS: TROPONIN-I < 0.017 ng/mL (0.000-0.060)
[2019-09-08 00:15] VITALS: BP 153/59
[2019-09-08 05:08] VITALS: BP 140/78
[2019-09-08 05:09] LABS: BASOPHILS 0.1 % (0-2); EOSINOPHILS 1.7 % (0-7); HEMATOCRIT 30.9 % (36.0-48.0); HEMOGLOBIN 9.6 g/dL (12-16); IMMATURE GRANULOCYTES 0.3 % (0-5); MCHC 31.1 g/dL (31.0-37.0); MCV 96.6 fL (80.0-100.0); MONOCYTES 7.5 % (2-11); NEUTROPHILS 71.4 % (40-80); PLATELET COUNT 251 10x3/uL (130-400); RDW 17.6 % (11.5-14.5)
[2019-09-08 05:27] LABS: CALC OSMOLALITY 280 mosm/kg (275-300); CARBON DIOXIDE 25.9 mmol/L (21.0-32.0); CHLORIDE - SERUM 107 mmol/L (98-107); CREATININE - SERUM 0.7 mg/dL (0.6-1.3); GLUCOSE 109 mg/dL (74-106); POTASSIUM - SERUM 3.4 mmol/L (3.5-5.1); SODIUM 140 mmol/L (136-145); eGFR NON AFRICAN AMERICAN 84 mL/min (90-120)
[2019-09-08 05:30] LABS: UREA NITROGEN 14 mg/dL (7-18)
[2019-09-08 05:47] LABS: WBC 7.1 10x3/uL (4.8-10.8)
[2019-09-08 09:00] VITALS: BP 133/52
[2019-09-08 12:00] VITALS: BP 114/51
[2019-09-08 16:00] VITALS: BP 134/52
--- NOTE | 2019-09-08 18:12 | NUR ---
RESTS IN BED WITH CALL LIGHT IN REACH. S/P HC. TELEMETRY SR. WILL CONT. PLAN OF CARE.
[2019-09-08 20:00] VITALS: BP 145/54
[2019-09-09 04:00] VITALS: BP 125/55; BP 141/74
[2019-09-09 05:34] LABS: BASOPHILS 0.1 % (0-2); EOSINOPHILS 1.1 % (0-7); HEMATOCRIT 31.8 % (36.0-48.0); HEMOGLOBIN 9.6 g/dL (12-16); IMMATURE GRANULOCYTES 0.2 % (0-5); LYMPHOCYTES 17.3 % (15-50); MCH 29.3 pg (26.0-34.0); MCHC 30.2 g/dL (31.0-37.0); MEAN PLATELET VOLUME 9.9 fL (7.4-10.4); MONOCYTES 7.7 % (2-11); NEUTROPHILS 73.6 % (40-80); PLATELET COUNT 299 10x3/uL (130-400); RBC 3.28 10x6/uL (4.00-5.40); WBC 8.2 10x3/uL (4.8-10.8)
[2019-09-09 06:23] LABS: ANION GAP 10.3 mmol/L (8-16); CALCIUM 8.1 mg/dL (8.5-10.1); CARBON DIOXIDE 26.2 mmol/L (21.0-32.0); CREATININE - SERUM 0.8 mg/dL (0.6-1.3); POTASSIUM - SERUM 3.5 mmol/L (3.5-5.1)
[2019-09-09 09:23] VITALS: BP 151/88
--- NOTE | 2019-09-09 11:53 | NUR ---
Rehab Note- Acute Inpatient Rehab prescreen order received. THe patient has a pending PT Eval, will follow at this time. THank you for this referral! Bijal Bautista RN Clinical Liaison, [facility] Rehab
[2019-09-09 12:00] VITALS: BP 132/69
--- NOTE | 2019-09-09 14:16 | OP ---
PATIENT NAME: DENAE HALLMAN MEDICAL RECORD: [id number] :35 LOCATION:D.M2 D.2121 ADMISSION DATE:09/07/19 SURGEON: LUIS MCCONNELL MD DATE OF OPERATION: 09/08/2019 PROCEDURE: Left heart catheterization, selective coronary angiography, right femoral artery approach. CATHETERS: A 5-Canadian sheath, 5/4 left and right Jonnathan, 5/4 pig. The procedure was well tolerated. The patient returned to the ruvalcaba, sheath removed. ExoSeal device placed. FINDINGS: Left ventriculography in 30-degree DUNN view; normal wall motion and normal systolic function. CORONARY ANATOMY: LEFT MAIN: Left main is free of disease. LAD: LAD area of previous stenting is widely patent. No progression of match-[place] disease. No evidence of restenosis. CIRCUMFLEX: Moderate size circumflex, free of disease. The stent itself is widely patent. RIGHT CORONARY ARTERY: Again, previously on intervention is widely patent. No progression of disease. IMPRESSION: Widely patent stents. No progression of disease. Left ventricular function remains normal. Consider other etiology of chest pain. TRANSINT:[id number] Voice Confirmation ID: [id number] DOCUMENT ID: [id number] LUIS MCCONNELL MD at 1416 CC: [id number] DICTATION DATE: 09/08/19 1204 FLOATMAN: 09/08/19 1343 ADM IN [facility] [address] [place] [address]
--- NOTE | 2019-09-09 16:20 | NUR ---
TELEMETRY SR. LEAVING FOR X-RAY BY W/C. WILL CONT. PLAN OF CARE.
--- NOTE | 2019-09-09 19:36 | NUR ---
REPORT RECIEVED AND ROUNDING COMPLETE. PATIENT LAYING IN BED IN HIGH FOWLERS POSITION. LNP YING GIVING PAIN MEDS IN RIGHT FORE ARM PIV. PIV PATENT AND SHOWS NO S/SX OF INFILTRATION AT THIS TIME. A&O X4. NO DISTRESS NOTED AT THIS TIME. CALL LIGHT WITHIN REACH AND BED IN LOWEST LOCKED POSITION. PATIENT STATES SHE HAS NO NEEDS AT THIS TIME.
[2019-09-09 20:00] VITALS: BP 155/52
[2019-09-10] VITALS: BP 139/46
[2019-09-10 04:00] VITALS: BP 111/57
[2019-09-10 05:24] LABS: C-REACTIVE PROTEIN 7.4 mg/dL (0.0-0.9); CALC OSMOLALITY 278 mosm/kg (275-300); CALCIUM 8.1 mg/dL (8.5-10.1); CARBON DIOXIDE 26.4 mmol/L (21.0-32.0); CHLORIDE - SERUM 106 mmol/L (98-107); CREATININE - SERUM 0.7 mg/dL (0.6-1.3); GLUCOSE 113 mg/dL (74-106); POTASSIUM - SERUM 3.5 mmol/L (3.5-5.1); SODIUM 140 mmol/L (136-145); UREA NITROGEN 11 mg/dL (7-18); eGFR NON AFRICAN AMERICAN 84 mL/min (90-120)
[2019-09-10 05:27] LABS: COMPLEMENT C4 18.5 mg/dL (17.4-52.2)
[2019-09-10 06:38] LABS: BASOPHILS 0.1 % (0-2); EOSINOPHILS 1.4 % (0-7); HEMATOCRIT 30.6 % (36.0-48.0); HEMOGLOBIN 9.5 g/dL (12-16); IMMATURE GRANULOCYTES 0.5 % (0-5); LYMPHOCYTES 22.3 % (15-50); MCH 30.2 pg (26.0-34.0); MCV 97.1 fL (80.0-100.0); MEAN PLATELET VOLUME 9.6 fL (7.4-10.4); MONOCYTES 8.9 % (2-11); NEUTROPHILS 66.8 % (40-80); PLATELET COUNT 270 10x3/uL (130-400); RBC 3.15 10x6/uL (4.00-5.40); RDW 18.5 % (11.5-14.5)
[2019-09-10 09:23] LABS: ERYTHROCYTE SEDIMENTATION RATE 49 mm/hr (0-30)
[2019-09-10 11:08] VITALS: BP 124/42
--- NOTE | 2019-09-10 11:52 | NUR ---
Reviewed patient's chart this AM. She meets criteria for ARU and will be accepted if she feels she will be able to participate in the required therapy. Discussed with the CM Cyndee Benites RN. Jasmyne Mcneil RN Clinical Liaison, Rehab
[2019-09-10 12:00] VITALS: BP 125/44
[2019-09-10 16:30] VITALS: BP 138/40
--- NOTE | 2019-09-10 16:46 | MORECARE ---
CASE MANAGEMENT DISCHARGE SUMMARY PATIENT: DENAE HALLMAN UNIT: [id number] ADM DATE: 09/09/19 AGE: 84 : 35 SEX: F ROOM/BED: D.2121 AUTHOR: KRYS CAMPOS PHYSICIAN: REFERRING PHYSICIAN: ZEKE BEEBE MD DATE OF SERVICE: 09/10/19 Discharge Plan Patient Name: DENAE HALLMAN Facility: [facility]:[place] : 1935 Planned Disposition: Inpatient Rehab Anticipated Discharge Date: Discharge Date: Expected LOS: Initial Reviewer: [email or web address] Initial Review Date: 09/10/2019 Generated: 09/10/19 5:45 pm DCPIA - Discharge Planning Initial Assessment Updated by [id number]: Cyndee Benites on 09/10/19 4:45 pm * Is the patient Alert and Oriented? Yes * How many steps to enter\exit or inside your home? 2 W/RAILS * PCP Dr. Olga To * Pharmacy [facility] in [place] * Preadmission Environment Home with Family * ADLs Independent * Equipment None * List name and contact numbers for known caregivers / representatives who currently or will assist patient after discharge: Tomi aRmos [facility] - [phone] * Verbal permission to speak to the caregivers and representatives has been obtained from the patient. Yes * Community resources currently utilized None * Additional services required to return to the preadmission environment? Yes * Can the patient safely return to the preadmission environment? Yes * Has this patient been hospitalized within the prior 30 days at any hospital? No Coverage Notice Reviewer: [id number] - Cyndee Benites Notice Issued Date-Time: 09/07/2019 16:07 Notice Type: Medicare Outpatient Observation Notice Notice Delivered To: Patient Relationship to Patient: Self Oncology Specialist Name: Delivery Method: HAND - Hand Delivered Gabbie Days: Prior Verbal Notification: Recipient Understood Notice: Yes Recipient Signature: Yes Med Rec Note Co-signed by Attending: Coverage Notice Comment: HART delivered, signed, given, copy placed in MR Patient Name: DENAE HALLMAN Page 14638 at 1646 All edits/amendments must be made on the electronic document DICTATION DATE: 09/10/191644 STRANDING SUPERVISOR: DM 09/10/191644 RPT#: [id number] DC DATE: STATUS: ADM IN [address] [place] [address] END OF REPORT
--- NOTE | 2019-09-10 16:54 | MORECARE ---
CASE MANAGEMENT DISCHARGE SUMMARY PATIENT: DENAE HALLMAN UNIT: [id number] ADM DATE: 09/09/19 AGE: 84 : 35 SEX: F ROOM/BED: D.2931 AUTHOR: BETHDOC PHYSICIAN: REFERRING PHYSICIAN: ZEKE BEEBE MD DATE OF SERVICE: 09/10/19 Discharge Plan Patient Name: DENAE HALLMAN Facility: [facility]:[place] : 1935 Planned Disposition: Inpatient Rehab Anticipated Discharge Date: Discharge Date: Expected LOS: Initial Reviewer: [email or web address] Initial Review Date: 09/10/2019 Generated: 09/10/19 5:54 pm Comments DCP- Discharge Planning Updated by [id number]: Cyndee Benites on 09/10/19 3:[address] Patient Name: DENAE HALLMAN Admission Status: ER Accout number: [id number] Admission Date: 09-09-2019 : 1935 Admission Diagnosis: Attending: ZEKE BEEBE Current LOS: 1 Anticipated DC Date: Planned Disposition: Inpatient Rehab Primary Insurance: MEDICARE A & B CM met with patient to complete initial dc planning assessment. CM educated patient on the CM role and verbal consent given by patient to complete assessment. Patient lives at home and takes care of her 90 year old sister. CM discussed availability of home health, rehab services, and medical equipment. Patient states she is very weak and will probably need to go to rehab. States she doesn't care if it is [facility] or [facility]. States she spoke with her daughter and her daughter wants them to "find out what's wrong with me first." States when medically ready for discharge, she will consider rehab. States her sister's daughter is going to take care of her sister while she is in the hospital. CM will continue to follow and will assist as needed with dc plans/needs. Discharge Planning Comments: Branch Billing Payroll Clerk: Cyndee Benites DCPIA - Discharge Planning Initial Assessment Updated by [id number]: Cyndee Benites on 09/10/19 4:45 pm * Is the patient Alert and Oriented? Yes * How many steps to enter\\exit or inside your home? 2 W/RAILS * PCP Dr. Olga To * Pharmacy [facility] in [place] * Preadmission Environment Home with Family * ADLs Independent * Equipment None * List name and contact numbers for known caregivers / representatives who currently or will assist patient after discharge: Tomi Ramos - [facility] - [phone] * Verbal permission to speak to the caregivers and representatives has been obtained from the patient. Yes * Community resources currently utilized None * Additional services required to return to the preadmission environment? Yes * Can the patient safely return to the preadmission environment? Yes * Has this patient been hospitalized within the prior 30 days at any hospital? No Coverage Notice Reviewer: [email or web address] Benites Notice Issued Date-Time: 09/07/2019 16:07 Notice Type: Medicare Outpatient Observation Notice Notice Delivered To: Patient Relationship to Patient: Self Optical Dispenser Name: Delivery Method: HAND - Hand Delivered Gabbie Days: Prior Verbal Notification: Recipient Understood Notice: Yes Recipient Signature: Yes Med Rec Note Co-signed by Attending: Coverage Notice Comment: HART delivered, signed, given, copy placed in MR Reviewer: [id number] Benites Notice Issued Date-Time: 09/10/2019 16:48 Notice Type: Patient Choice Letter Notice Delivered To: Patient Relationship to Patient: Self Optical Dispenser Name: Delivery Method: HAND - Hand Delivered Gabbie Days: Prior Verbal Notification: Recipient Understood Notice: Yes Recipient Signature: Yes Med Rec Note Co-signed by Attending: Coverage Notice Comment: [facility] inpatient rehab or [facility] Last DP export: 09/10/19 3:46 pm Patient Name: DENAE HALLMAN Page [phone] at 1654 All edits/amendments must be made on the electronic document DICTATION DATE: 09/10/191653 MOLD PRESSER: MIGUEL 09/10/191653 RPT#: [id number] DC DATE: STATUS: ADM IN [id number] [place] [address] END OF REPORT
--- NOTE | 2019-09-10 19:00 | NUR ---
BEDSIDE REPORT RECEIVED, PT CARE ASSUMED. INTRODUCED SELF AND WROTE NAME ON BOARD. PT SITTING UP IN BED, WATCHING TV, AAOX4. DENIES ANY NEEDS AT THIS TIME. BED IN LOWEST, SRX2, CALL LIGHT WITHIN REACH. WILL CTM.
[2019-09-10 20:00] VITALS: BP 143/57
[2019-09-11 00:01] VITALS: BP 118/50
[2019-09-11 04:00] VITALS: BP 154/62
[2019-09-11 06:03] LABS: LYMPHOCYTES 10.5 % (15-50); MCH 30.2 pg (26.0-34.0); MCHC 31.4 g/dL (31.0-37.0); MCV 96.2 fL (80.0-100.0); MEAN PLATELET VOLUME 9.5 fL (7.4-10.4); NEUTROPHILS 83.5 % (40-80); PLATELET COUNT 323 10x3/uL (130-400); RBC 3.64 10x6/uL (4.00-5.40); RDW 18.1 % (11.5-14.5); WBC 6.8 10x3/uL (4.8-10.8)
[2019-09-11 06:11] LABS: ANION GAP 13.8 mmol/L (8-16); CALCIUM 8.6 mg/dL (8.5-10.1); CARBON DIOXIDE 26.4 mmol/L (21.0-32.0); CREATININE - SERUM 0.8 mg/dL (0.6-1.3)
[2019-09-11 06:12] LABS: POTASSIUM - SERUM 4.2 mmol/L (3.5-5.1)
--- NOTE | 2019-09-11 07:00 | NUR ---
RECEIVED REPORT. ASSUMED CARE OF PATIENT. CALL LIGHT WITHIN REACH. RESTING IN BED WITH EYES OPEN. PT REPORTS SHE FEELS MUCH BETTER AFTER RECEIVING THE STERIOD YESTERDAY AND WANTS TO MAKE SURE SHE WILL GET ANOTHER DOSE TODAY. REASSURED PATIENT STERIOD IS ORDERED FOR HER. NO DISTRESS. RT AT BEDSIDE FOR BREATHING TX.
[2019-09-11 08:03] VITALS: BP 135/54
--- NOTE | 2019-09-11 08:40 | NUR ---
COFFEE PROVIDED UPON REQUEST.
--- NOTE | 2019-09-11 11:25 | NUR ---
SHOWER AND LINEN CHANGE COMPLETE. CALL LIGHT WITHIN REACH. NO DISTRESS. DENIES NEEDS AT THIS TIME.
[2019-09-11 11:56] VITALS: BP 136/52
--- NOTE | 2019-09-11 14:39 | NUR ---
SPOKE WITH PATIENT ABOUT BEING DISCHARGED TO REHAB AND PATIENT IS NOW REFUSING REHAB, STATES SHE IS GOING HOME TOMORROW. PATIENT STATES HER SISTER THAT SHE CARES FOR AT HOME HAD A FALL AFTER SHE CAME TO THE HOSPITAL AND NOW THEY WANT TO PUT THE SISTER ON HOSPICE AND THE PATIENT STATES SHE NEEDS TO GET HOME AND SEE HER SISTER FOR HERSELF BECAUSE SHE DOES NOT THINK SHE NEEDS HOSPICE. NOTIFIED, CM NOTIFIED OF CHANGE OF DECISION THAT PATIENT HAS MADE.
--- NOTE | 2019-09-11 14:52 | NUR ---
20 GAUGE IV REMOVED FROM RIGHT FOREARM. CATHETER TIP INTACT. NO BLEEDING FROM SITE. 2X2 GAUZE APPLIED AND SECURED WITH BANDAID. PATIENT IS DISCHARGING TO HOME.
--- NOTE | 2019-09-11 15:04 | NUR ---
PATIENT IS NOW BEING DISCHARGED TO HOME. PATIENT AWARE.
--- NOTE | 2019-09-11 15:10 | NUR ---
RECEIVED VERBAL ORDER THAT PATIENT TO CONTINUE PREDNISONE 30MG X 4 DAYS ONCE DISCHARGED TO HOME AND TO CALL MED INTO PATIENTS PHARMACY.
--- NOTE | 2019-09-11 15:31 | MORECARE ---
CASE MANAGEMENT DISCHARGE SUMMARY PATIENT: DENAE HALLMAN UNIT: [id number] ADM DATE: 09/09/19 AGE: 84 : 35 SEX: F ROOM/BED: D.9652 AUTHOR: KRYS CAMPOS PHYSICIAN: REFERRING PHYSICIAN: ZEKE BEEBE MD DATE OF SERVICE: 09/11/19 Discharge Plan Patient Name: DENAE HALLMAN Facility: [facility]:[place] : 1935 Planned Disposition: Inpatient Rehab Anticipated Discharge Date: 09/11/19 Discharge Date: Expected LOS: 2 Initial Reviewer: [email or web address] Initial Review Date: 09/10/2019 Generated: 09/11/19 4:30 pm Comments DCP- Discharge Planning Updated by [id number]: Cyndee Benites on 09/10/19 3:[address] Patient Name: DENAE HALLMAN Admission Status: ER Accout number: [id number] Admission Date: 09-09-2019 : 1935 Admission Diagnosis: Attending: ZEKE BEEBE Current LOS: 1 Anticipated DC Date: Planned Disposition: Inpatient Rehab Primary Insurance: MEDICARE A & B CM met with patient to complete initial dc planning assessment. CM educated patient on the CM role and verbal consent given by patient to complete assessment. Patient lives at home and takes care of her 90 year old sister. CM discussed availability of home health, rehab services, and medical equipment. Patient states she is very weak and will probably need to go to rehab. States she doesn't care if it is [facility] or [facility]. States she spoke with her daughter and her daughter wants them to "find out what's wrong with me first." States when medically ready for discharge, she will consider rehab. States her sister's daughter is going to take care of her sister while she is in the hospital. CM will continue to follow and will assist as needed with dc plans/needs. Discharge Planning Comments: Market Research Assistant: Cyndee Benites DCPIA - Discharge Planning Initial Assessment Updated by [id number]: Cyndee Benites on 09/10/19 4:45 pm * Is the patient Alert and Oriented? Yes * How many steps to enter\\exit or inside your home? 2 W/RAILS * PCP Dr. Olga To * Pharmacy [facility] in [place] * Preadmission Environment Home with Family * ADLs Independent * Equipment None * List name and contact numbers for known caregivers / representatives who currently or will assist patient after discharge: Tomi Ramos - [facility] - [phone] * Verbal permission to speak to the caregivers and representatives has been obtained from the patient. Yes * Community resources currently utilized None * Additional services required to return to the preadmission environment? Yes * Can the patient safely return to the preadmission environment? Yes * Has this patient been hospitalized within the prior 30 days at any hospital? No Coverage Notice Reviewer: [id number] Nehal Benites Notice Issued Date-Time: 09/07/2019 16:07 Notice Type: Medicare Outpatient Observation Notice Notice Delivered To: Patient Relationship to Patient: Self Wire Straightener Name: Delivery Method: HAND - Hand Delivered Gabbie Days: Prior Verbal Notification: Recipient Understood Notice: Yes Recipient Signature: Yes Med Rec Note Co-signed by Attending: Coverage Notice Comment: HART delivered, signed, given, copy placed in MR Reviewer: [id number] Nehal Benites Notice Issued Date-Time: 09/10/2019 16:48 Notice Type: Patient Choice Letter Notice Delivered To: Patient Relationship to Patient: Self Wire Straightener Name: Delivery Method: HAND - Hand Delivered Gabbie Days: Prior Verbal Notification: Recipient Understood Notice: Yes Recipient Signature: Yes Med Rec Note Co-signed by Attending: Coverage Notice Comment: [facility] inpatient rehab or [facility] Last DP export: 09/10/19 3:54 pm Patient Name: DENAE HALLMAN Page [phone] at 1531 All edits/amendments must be made on the electronic document DICTATION DATE: 09/11/19 1530 SENIOR MAINFRAME DEVELOPER: MIGUEL 09/11/19 1530 RPT#: [id number] DC DATE: STATUS: ADM IN [id number] [place] [address] END OF REPORT
--- NOTE | 2019-09-11 15:44 | MORECARE ---
CASE MANAGEMENT DISCHARGE SUMMARY PATIENT: DENAE HALLMAN UNIT: [id number] ADM DATE: 09/09/19 AGE: 84 : 35 SEX: F ROOM/BED: D.3706 AUTHOR: KRYS CAMPOS PHYSICIAN: REFERRING PHYSICIAN: ZEKE BEEBE MD DATE OF SERVICE: 09/11/19 Discharge Plan Patient Name: DENAE HALLMAN Facility: [facility]:[place] : 1935 Planned Disposition: Inpatient Rehab Anticipated Discharge Date: 09/11/19 Discharge Date: Expected LOS: 2 Initial Reviewer: [id number] Initial Review Date: 09/10/2019 Generated: 09/11/19 4:43 pm Comments DCP- Discharge Planning Updated by [id number]: Erin Lopez on 09/11/19 2:[address] 1337 REC TELEPHONE CALL FROM BREA, JIGSAWYER, THAT THE PATIENT HAD BEEN ACCEPTED TO REHAB 09/10/19. SHE COULD BE TRANSFERED TODAY IF MD IS IN AGREEMENT. TC TO RIOS, PRIMARY NURSE. DISCUSSED ABOVE. SHE SPOKE W/ MD AND OBTAINED MD ORDERS FOR TRANSFER TODAY. NOTIFIED AT 1510- THE PATIENT STATES SHE MUST BE DISCHARGED TO HOME TODAY. HER SISTER WAS BEING ADMITTED TO HOSPICE AT [facility]. THE PATIENT IS THE CAREGIVER FOR HER 90 YEAR OLD SISTER. SHE DOES NOT AGREE WITH THE HOSPICE PLAN THEREFORE SHE WANTS TO BE DISCHARGED TO HOME. SHE IS ADAMANT. PRIMARY NURSE WILL ADVISE THE MD. DCP- Discharge Planning Updated by [id number]: Cyndee Benites on 09/10/19 3:[address] Patient Name: DENAE HALLMAN Admission Status: ER Accout number: [id number] Admission Date: 09-09-2019 : 1935 Admission Diagnosis: Attending: ZEKE BEEBE Current LOS: 1 Anticipated DC Date: Planned Disposition: Inpatient Rehab Primary Insurance: MEDICARE A & B CM met with patient to complete initial dc planning assessment. CM educated patient on the CM role and verbal consent given by patient to complete assessment. Patient lives at home and takes care of her 90 year old sister. CM discussed availability of home health, rehab services, and medical equipment. Patient states she is very weak and will probably need to go to rehab. States she doesn't care if it is [facility] or [facility]. States she spoke with her daughter and her daughter wants them to "find out what's wrong with me first." States when medically ready for discharge, she will consider rehab. States her sister's daughter is going to take care of her sister while she is in the hospital. CM will continue to follow and will assist as needed with dc plans/needs. Discharge Planning Comments: Olive Pitter: Cyndee Benites DCPIA - Discharge Planning Initial Assessment Updated by [id number]: Cyndee Benites on 09/10/19 4:45 pm * Is the patient Alert and Oriented? Yes * How many steps to enter\\exit or inside your home? 2 W/RAILS * PCP Dr. Olga To * Pharmacy [facility] in [place] * Preadmission Environment Home with Family * ADLs Independent * Equipment None * List name and contact numbers for known caregivers / representatives who currently or will assist patient after discharge: Tomi Huffyer - [facility] - [phone] * Verbal permission to speak to the caregivers and representatives has been obtained from the patient. Yes * Community resources currently utilized None * Additional services required to return to the preadmission environment? Yes * Can the patient safely return to the preadmission environment? Yes * Has this patient been hospitalized within the prior 30 days at any hospital? No Coverage Notice Reviewer: [id number] Nehal Benites Notice Issued Date-Time: 09/07/2019 16:07 Notice Type: Medicare Outpatient Observation Notice Notice Delivered To: Patient Relationship to Patient: Self Buildings Painter Name: Delivery Method: HAND - Hand Delivered Gabbie Days: Prior Verbal Notification: Recipient Understood Notice: Yes Recipient Signature: Yes Med Rec Note Co-signed by Attending: Coverage Notice Comment: HART delivered, signed, given, copy placed in MR Reviewer: [id number] Nehal Benites Notice Issued Date-Time: 09/10/2019 16:48 Notice Type: Patient Choice Letter Notice Delivered To: Patient Relationship to Patient: Self Buildings Painter Name: Delivery Method: HAND - Hand Delivered Gabbie Days: Prior Verbal Notification: Recipient Understood Notice: Yes Recipient Signature: Yes Med Rec Note Co-signed by Attending: Coverage Notice Comment: [facility] inpatient rehab or [facility] Last DP export: 09/11/19 2:31 pm Patient Name: DENAE HALLMAN Page [id number] at 1544 All edits/amendments must be made on the electronic document DICTATION DATE: 09/11/191543 CHAIN TENDER: MIGUEL 09/11/19 1544 RPT#: [id number] DC DATE: STATUS: ADM IN [facility] [address] [place] [address] END OF REPORT
[2019-09-11] MEDS ORDERED: PREDNISONE10 MG PO (16:11)
--- NOTE | 2019-09-11 17:08 | NUR ---
DISCHARGE INSTRUCTIONS PROVIDED TO PATIENT. PATIENT VERBALIZED UNDERSTANDING OF ALL INSTRUCTIONS PROVIDED. TELEMETRY RETURNED TO MILEAGE CLERK. PATIENT CONSUMING PM MEAL AND WAITING FOR HER FAMILY TO ARRIVE.
--- NOTE | 2019-09-11 18:15 | NUR ---
PATIENT LEFT UNIT VIA WHEELCHAIR WITH ALL PERSONAL BELONGINGS. PATIENT DISCHARGED TO HOME WITH FAMILY. PATIENT IN NO DISTRESS UPON LEAVING UNIT.
--- NOTE | 2019-09-13 13:23 | MORECARE ---
CASE MANAGEMENT DISCHARGE SUMMARY PATIENT: DENAE HALLMAN UNIT: [id number] ADM DATE: 09/09/19 AGE: 84 : 35 SEX: F ROOM/BED: D.7202 AUTHOR: KRYS CAMPOS PHYSICIAN: REFERRING PHYSICIAN: ZEKE BEEBE MD DATE OF SERVICE: 09/13/19 Discharge Plan Patient Name: DENAE HALLMAN Facility: [facility]:[place] : 1935 Planned Disposition: Inpatient Rehab Anticipated Discharge Date: 09/11/19 Discharge Date: 09/11/2019 Expected LOS: 2 Initial Reviewer: [id number] Initial Review Date: 09/10/2019 Generated: 09/13/19 2:22 pm Comments DCP- Discharge Planning Updated by [id number]: Erin Lopez on 09/11/19 2:[address] 1337 REC TELEPHONE CALL FROM BREA, NEWS ASSIGNMENT EDITOR, THAT THE PATIENT HAD BEEN ACCEPTED TO REHAB 09/10/19. SHE COULD BE TRANSFERED TODAY IF MD IS IN AGREEMENT. TC TO RIOS, PRIMARY NURSE. DISCUSSED ABOVE. SHE SPOKE W/ MD AND OBTAINED MD ORDERS FOR TRANSFER TODAY. NOTIFIED AT 1510- THE PATIENT STATES SHE MUST BE DISCHARGED TO HOME TODAY. HER SISTER WAS BEING ADMITTED TO HOSPICE AT [facility]. THE PATIENT IS THE CAREGIVER FOR HER 90 YEAR OLD SISTER. SHE DOES NOT AGREE WITH THE HOSPICE PLAN THEREFORE SHE WANTS TO BE DISCHARGED TO HOME. SHE IS ADAMANT. PRIMARY NURSE WILL ADVISE THE MD. DCP- Discharge Planning Updated by [email or web address]: Cyndee Delmis on 09/10/19 3:[address] Patient Name: DENAE HALLMAN Admission Status: ER Accout number: [id number] Admission Date: 09-09-2019 : 1935 Admission Diagnosis: Attending: ZEKE BEEBE Current LOS: 1 Anticipated DC Date: Planned Disposition: Inpatient Rehab Primary Insurance: MEDICARE A & B CM met with patient to complete initial dc planning assessment. CM educated patient on the CM role and verbal consent given by patient to complete assessment. Patient lives at home and takes care of her 90 year old sister. CM discussed availability of home health, rehab services, and medical equipment. Patient states she is very weak and will probably need to go to rehab. States she doesn't care if it is [facility] or [facility]. States she spoke with her daughter and her daughter wants them to "find out what's wrong with me first." States when medically ready for discharge, she will consider rehab. States her sister's daughter is going to take care of her sister while she is in the hospital. CM will continue to follow and will assist as needed with dc plans/needs. Discharge Planning Comments: Poolroom/Poolhall Manager: Cyndee Benites DCPIA - Discharge Planning Initial Assessment Updated by [id number]: Cyndee Benites on 09/10/19 4:45 pm * Is the patient Alert and Oriented? Yes * How many steps to enter\\exit or inside your home? 2 W/RAILS * PCP Dr. Olga To * Pharmacy [facility] in [place] * Preadmission Environment Home with Family * ADLs Independent * Equipment None * List name and contact numbers for known caregivers / representatives who currently or will assist patient after discharge: Tomi Richard - [facility] - [phone] * Verbal permission to speak to the caregivers and representatives has been obtained from the patient. Yes * Community resources currently utilized None * Additional services required to return to the preadmission environment? Yes * Can the patient safely return to the preadmission environment? Yes * Has this patient been hospitalized within the prior 30 days at any hospital? No Coverage Notice Reviewer: [id number] Nehal Benites Notice Issued Date-Time: 09/07/2019 16:07 Notice Type: Medicare Outpatient Observation Notice Notice Delivered To: Patient Relationship to Patient: Self Weather Clerk Name: Delivery Method: HAND - Hand Delivered Gabbie Days: Prior Verbal Notification: Recipient Understood Notice: Yes Recipient Signature: Yes Med Rec Note Co-signed by Attending: Coverage Notice Comment: HART delivered, signed, given, copy placed in MR Reviewer: [id number] Nehal Benites Notice Issued Date-Time: 09/10/2019 16:48 Notice Type: Patient Choice Letter Notice Delivered To: Patient Relationship to Patient: Self Weather Clerk Name: Delivery Method: HAND - Hand Delivered Gabbie Days: Prior Verbal Notification: Recipient Understood Notice: Yes Recipient Signature: Yes Med Rec Note Co-signed by Attending: Coverage Notice Comment: [facility] inpatient rehab or [facility] Last DP export: 09/11/19 2:44 pm Patient Name: DENAE HALLMAN Page 22915 at 1323 All edits/amendments must be made on the electronic document DICTATION DATE: 09/13/191321 INFECTION CONTROL NURSE: MIGUEL 09/13/191321 RPT#: [id number] DC DATE:09/11/19 STATUS: DIS IN [facility] [address] [place] [address] END OF REPORT
== END 2019-09-11 18:00 | disposition home or self-care (01) | DRG 546 ==
LOC: D.ER 10:28 → D.M2 11:40 → OBSVTIME 12:12 → D.M2 09-09 19:35
PROVIDERS: Family Medicine; Internal Medicine Interventional Cardiology; ADMIT Internal Medicine Nephrology; ATTEND Internal Medicine Nephrology
DX: M32.9 Systemic lupus erythematosus, unspecified (principal); I25.110 Atherosclerotic heart disease of native coronary artery with unstable angina pectoris; N17.9 Acute kidney failure, unspecified; R53.1 Weakness; D64.9 Anemia, unspecified; E83.42 Hypomagnesemia; I10 Essential (primary) hypertension; E78.5 Hyperlipidemia, unspecified; K21.9 Gastro-esophageal reflux disease without esophagitis; M19.90 Unspecified osteoarthritis, unspecified site; G62.9 Polyneuropathy, unspecified; G25.81 Restless legs syndrome